=== PATIENT | female | born 1970 | race Caucasian/White ===

== ENCOUNTER → 2020-01-06 14:03 | Outpatient (BNVA) | payer OTHER, SELFPAY | PROVIDERS: PCP Internal Medicine; Visit Provider Internal Medicine Cardiovascular Disease | DX: R07.9 Chest pain, unspecified (principal) | CPT/HCPCS: 93005; 99202 ==

== ENCOUNTER → 2020-02-05 13:43 | Outpatient (BNVA) | payer OTHER, SELFPAY | PROVIDERS: PCP Internal Medicine; Visit Provider Physician Assistant | DX: Z76.89 Persons encountering health services in other specified circumstances (principal) ==

== ENCOUNTER 2020-02-25 14:10 | Outpatient (REF) | payer OTHER, SELFPAY ==
[2020-02-25 15:02] LABS: MANUAL DIFF FLAG NO
[2020-02-25 15:04] LABS: Basophils Absolute Auto 0.1 X10*3/uL (0.0-0.2); Basophils Percent Auto 1.1 % (0-2); Eosinophils Absolute Auto 0.4 X10*3/uL (0.0-0.4); Eosinophils Percent Auto 5.3 % (0-4); Hematocrit 37.2 % (37-47); Hemoglobin 11.1 g/dl (12.0-16.0); Imm Gran Abs Auto 0.01 X10*3/uL (0.00-0.03); Imm Gran Pct Auto 0.1 % (0.0-0.4); Lymphocytes Absolute Auto 2.4 X10*3/uL (1.2-4.9); Mean Corpuscular HGB Conc 29.8 g/dl (31.0-35.0); Mean Corpuscular Hemoglobin 24.2 pg (27.0-33.0); Mean Platelet Volume 9.7 fL (9.4-12.3); Monocytes Absolute Auto 0.7 X10*3/uL (0.1-1.2); Monocytes Percent Auto 10.1 % (2-11); Neutrophils Absolute Auto 3.7 X10*3/uL (2.0-8.3); Neutrophils Percent Auto 50.4 % (45-73); Platelet Count 390 X10*3/uL (160-400); Red Blood Count 4.59 X10*6/uL (4.20-5.50); Red Cell Distribution Width 16.8 % (11.0-16.0); White Blood Count 7.3 X10*3/uL (4.8-10.8)
[2020-02-25 15:36] LABS: Alanine Aminotransferase 14 U/L (0-31); Albumin Level 3.8 g/dL (3.5-5.0); Alkaline Phosphatase 89 U/L (39-117); Anion Gap 9 (12-20); Aspartate Amino Transferase 19 U/L (5-31); Bilirubin Total 0.2 mg/dL (0.0-1.0); Blood Urea Nitrogen 10 mg/dL (9-16); Calcium 9.3 mg/dL (8.4-10.2); Carbon Dioxide 30 mmol/L (22-29); Chloride 105 mmol/L (96-108); Estimated Glomerular Filt Rate > 60; Glucose Random 113 mg/dL (60-115); Potassium 4.4 mmol/l (3.3-5.1); Sodium 140 mmol/L (135-145); Total Protein 7.5 g/dL (6.5-8.0)
[2020-02-25 15:53] LABS: Ferritin 2 ng/mL (10-250)
== END 2020-02-25 14:11 | disposition home or self-care (01) ==
LOC: HO.LAB 14:10
PROVIDERS: PCP Internal Medicine; Visit Provider Physician Assistant
DX: A04.8 Other specified bacterial intestinal infections (principal); K21.9 Gastro-esophageal reflux disease without esophagitis; D64.9 Anemia, unspecified; R10.11 Right upper quadrant pain; M77.8 Other enthesopathies, not elsewhere classified
CPT/HCPCS: 36415; 80053; 82728; 85025; 87338

== ENCOUNTER 2020-02-26 12:44 | Outpatient (REF) | payer OTHER, SELFPAY ==
[2020-02-26 16:01] LABS: Folate 4.5 ng/mL (> or = 4.0); Vitamin B12 676 pg/mL (200-900)
[2020-02-27 15:48] LABS: Transglutaminase IgA 1 U/mL
[2020-03-04 11:57] LABS: Endomysial IgA Antibody Negative (Negative)
== END 2020-02-26 12:45 | disposition home or self-care (01) ==
LOC: HO.LAB 12:44
PROVIDERS: PCP Internal Medicine; Visit Provider Physician Assistant
DX: R10.9 Unspecified abdominal pain (principal); N92.4 Excessive bleeding in the premenopausal period; D64.9 Anemia, unspecified; R19.7 Diarrhea, unspecified; Z79.899 Other long term (current) drug therapy
CPT/HCPCS: 36415; 82607; 82746; 83516; 86255; 86256; 99212

== ENCOUNTER 2020-02-26 21:47 | Emergency (ER) | payer OTHER, SELFPAY ==
[2020-02-26 21:52] VITALS: BP 127/77; PULSE 84; RESP 18; TEMP 36.9; O2SAT 97; BMI 32.5
--- NOTE | 2020-02-26 22:23 | XR_ITS ---
EXAMINATION: XR SHOULDER, RIGHT CLINICAL INFORMATION: Right shoulder pain COMPARISON: Right shoulder 01/12/2010 TECHNIQUE: Four views of the right shoulder. FINDINGS: Globular calcification over the greater tuberosity soft tissue of the left shoulder with calcific tendinosis/bursitis. Calcification measures approximately 1 x 2 x 1 cm in size. Minor spurring of the humeral head at the inferior glenohumeral joint. The acromioclavicular joint is normal. XR/XR shoulder RT min 2V IMPRESSION: Large soft tissue calcification adjacent to the humeral head due to calcific tendinosis/bursitis.
--- NOTE | 2020-02-26 22:24 | ED_ITS ---
HPI - Extremity Problem General Chief complaint: Extremity Injury, Upper Stated complaint: shoulder pain Time Seen by Provider: 02/26/20 22:14 Source: patient Mode of arrival: ambulatory Limitations: no limitations History of Present Illness HPI Narrative: Patient comes emergency room complaining of right shoulder pain. Patient states she has a husky, was going to walk the dog, the dog was very excited to go out for a walk, the leash was wrapped around the patient's right hand, the dog pulled her backwards. Patient did not fall, however she felt something popping in her shoulder. Patient has been able to move her arm, however the shoulder hurts. No numbness or tingling, no swelling MD Complaint: extremity pain Related Data Home Medications Medication Instructions Recorded Confirmed alprazolam 1 mg tablet 1 mg PO DAILY PRN 11/19/19 02/26/20 omeprazole 20 mg capsule,delayed 20 mg PO DAILY 11/19/19 01/15/20 release cholecalciferol (vitamin D3) 25 25 mcg PO DAILY 01/06/20 02/26/20 mcg (1,000 unit) capsule sumatriptan succinate 100 mg tablet 100 mg PO Q2-4H PRN 01/06/20 02/26/20 Previous Rx's Medication Instructions Recorded famotidine 20 mg tablet 20 mg PO DAILY #30 tab 01/15/20 acetaminophen [Tylenol] 325 mg PO Q8-12H PRN #10 tab 02/26/20 Allergies Allergy/AdvReac Type Severity Reaction Status Date / Time buprenorphine [From SUBOXONE] Allergy Unknown UNKNOWN Verified 02/26/20 21:51 gabapentin [GABAPENTIN] Allergy Unknown VISION AND Verified 02/26/20 21:51 BALANCE AFFECTED naloxone [From SUBOXONE] Allergy Unknown UNKNOWN Verified 02/26/20 21:51 Butrans Allergy Unknown site Uncoded 02/26/20 21:51 redness/swelling Review of Systems Review of Systems: Constitutional : No Weight loss, No Fever, No Chills, No Night Sweats, No Fatigue, No Malaise ENT/Mouth : No Hearing loss, No Ear Pain, No Nasal Congestion, No Sinus Pain, No Hoarseness, No sore throat, No Rhinorrhea, No Swallowing Difficulty Eyes: No Eye Pain, No Swelling, No Redness, No Foreign Body, No Discharge, No Vision Changes Cardiovascular : No Chest Pain, No SOB, No Dyspnea on Exertion, No Orthopnea, No Edema, No Palpitations Respiratory : No Cough, No Sputum, No Wheezing, No Smoke Exposure, No Dyspnea Gastrointestinal : No Nausea, No Vomiting, No Diarrhea, No Constipation, No abdominal Pain, No Hematochezia, No Melena Genitourinary : no irregular bleeding, No Dysuria, No Urinary Frequency, No Hematuria, No Urinary Incontinence, No Urgency, No Flank Pain, No Urinary Flow Changes, No Hesitancy Musculoskeletal : Right shoulder pain, No Myalgias, No Joint Swelling Skin : No Skin Lesions, No rash Neuro : No Weakness, No Numbness, No Paresthesias, No Loss of Consciousness, No Dizziness, No Headache Psych : No Anxiety/Panic, No Depression, No SI/HI/AH/VH, No Social Issues, Heme/Lymph: No Bruising, No Bleeding,No Lymphadenopathy Endocrine : No Polyuria, No Polydipsia, No Temperature Intolerance [facility] Past Medical History Medical History Acid reflux Anxiety Chest pain Overdose Premenopausal menorrhagia Surgical History History of hernia surgery Hx of colonoscopy Family History Family History (Updated 01/15/20 @ 12:25 by Savannah Her PA-C) Mother HTN (hypertension) Anxiety Depression Sister Colon polyps Brother Colon polyps Social History Social History (Updated 02/26/20 @ 13:19 by Juli Powell Krystle) Alcohol intake: never Smoking Status: Former smoker Advance Directives: No Advance Directives Information Provided: No Current occupational status: unemployed Physical Exam Vital Signs: Vital Signs: Last Vital Signs Temp 98.4 F 02/26/20 21:52 Pulse 84 02/26/20 21:52 Resp 18 02/26/20 21:52 BP 127/77 02/26/20 21:52 Pulse Ox 97 02/26/20 21:52 Body Mass Index 32.5 Appearance: Alert. Oriented X3. No acute distress. Eyes: Pupils equal, round and reactive to light. ENT: Pharynx normal. Neck: Normal inspection. Neck supple. No lymph nodes noted. No crepitus CVS: Normal heart rate and rhythm. Pulses normal. Normal S1 and S2 Respiratory: No respiratory distress. Breath sounds normal. No Wheezing. No rales Abdomen: Soft and nontender. No rigidity. No distention. good BS x4 Skin: Skin warm and dry. Normal skin color. Normal skin turgor. Extremities: No lower extremity edema. Patient is able to abduct the right arm completely and hold it up. Patient is unable to reach her back due to the pain, positive empty can test Neuro: Oriented X 3. No motor deficit. No sensory deficit. Moving all extermities. No slurred speech. Course Course Course Narrative: I discussed with the patient that she likely has bursitis versus tendinitis versus tendon tear. Patient states that she has not taking any [id number]-evl-[id number] medication. States that she has history of overdose and she has been told not to take anything over the counter until it is monitored by her primary care physician. I discussed with the patient that I will give her a small prescription for ibuprofen, using minimal dose. MDM - Extremity (Nontraumatic) Imaging Data Shoulder x-ray: Radiologist's impression: FINDINGS: Globular calcification over the greater tuberosity soft tissue of the left shoulder with calcific tendinosis/bursitis. Calcification measures approximately 1 x 2 x 1 cm in size. Minor spurring of the humeral head at the inferior glenohumeral joint. The acromioclavicular joint is normal. XR/XR shoulder RT min 2V IMPRESSION: Large soft tissue calcification adjacent to the humeral head due to calcific tendinosis/bursitis. Discharge Plan Discharge Clinical Impression: Shoulder pain Qualifiers: Chronicity: unspecified Laterality: unspecified laterality Qualified Code(s): M25.519 - Pain in unspecified shoulder Patient Disposition: Home, Self-Care Instructions: Shoulder Pain (ED) Additional Instructions: Please follow-up with your primary care physician, as you may need an MRI and po ssibly physical therapy. Please follow-up with your primary care physician tomorrow. If you have any worsening or new symptoms, please return to the emergency room or call 911 Prescriptions: New acetaminophen [Tylenol] 325 mg tablet 325 mg PO Q8-12H PRN (Reason: pain) Qty: 10 RF: 0 No Action omeprazole 20 mg capsule,delayed release(DR/EC) 20 mg PO DAILY RF: 0 alprazolam 1 mg tablet 1 mg PO DAILY PRNRF: 0 famotidine 20 mg tablet 20 mg PO DAILY Qty: 30 RF: 3 cholecalciferol (vitamin D3) 25 mcg (1,000 unit) capsule 25 mcg PO DAILY RF: 0 sumatriptan succinate 100 mg tablet 100 mg PO Q2-4H PRNRF: 0
[2020-02-26] MEDS: Ketorolac Tromethamine 60 MG/2 ML VIAL IM (22:44)
== END 2020-02-26 23:53 | disposition home or self-care (01) ==
PROVIDERS: Emergency Provider Emergency Medicine
DX: M25.511 Pain in right shoulder (principal); Z79.899 Other long term (current) drug therapy; Z87.891 Personal history of nicotine dependence
CPT/HCPCS: 73030; 96372; 99284; J1885

== ENCOUNTER 2020-03-01 15:59 | Emergency (ER) | payer OTHER, SELFPAY ==
[2020-03-01 16:17] VITALS: BP 121/69; PULSE 110; RESP 16; TEMP 36.6; O2SAT 97; BMI 33.3
--- NOTE | 2020-03-01 17:16 | ED.EXTPRO ---
HPI - Extremity Problem General Chief complaint: Extremity Injury, Upper Stated complaint: sholder pain Time Seen by Provider: 03/01/20 17:51 Source: patient Mode of arrival: ambulatory Limitations: language barrier History of Present Illness HPI Narrative: 49-year-old female presents with right shoulder pain. She was seen here on 02/26/2020 for this injury. She was walking her dog, the dog ran and pulled her arm backwards her hand was stuck in the leash and pulled on her shoulder. She felt a popping sound and had 10/10 pain after the incident. Her x-ray on the was negative for fracture or acute findings but it is suspected that she has a rotator cuff or ligament injury. She states the medications that were given to her are ineffective, and her primary care physician would not order an outpatient MRI because PCP wanted her to go to physical therapy 1st. Patient is currently in a sling, appears uncomfortable and is asking for pain management. She does have range of motion but is limited, she is able to move all of her fingers without difficulty. She does not describe any other symptoms at this time. MD Complaint: extremity pain Onset (ago): week(s) (1) Pain Consistency: constant Location: right Severity scale (1-10): 10 Quality: aching Relieving factors: nothing Exacerbating factors: range of motion Associated symptoms: denies other symptoms Related Data Home Medications Medication Instructions Recorded Confirmed alprazolam 1 mg tablet 1 mg PO DAILY PRN 11/19/19 02/26/20 omeprazole 20 mg capsule,delayed 20 mg PO DAILY 11/19/19 01/15/20 release cholecalciferol (vitamin D3) 25 25 mcg PO DAILY 01/06/20 02/26/20 mcg (1,000 unit) capsule sumatriptan succinate 100 mg tablet 100 mg PO Q2-4H PRN 01/06/20 02/26/20 Previous Rx's Medication Instructions Recorded famotidine 20 mg tablet 20 mg PO DAILY #30 tab 01/15/20 acetaminophen [Tylenol] 325 mg PO Q8-12H PRN #10 tab 02/26/20 ibuprofen 600 mg tablet 600 mg PO Q8H PRN #30 tab 02/28/20 tramadol 50 mg PO Q6H PRN #20 tab 03/01/20 Allergies Allergy/AdvReac Type Severity Reaction Status Date / Time buprenorphine [From SUBOXONE] Allergy Unknown UNKNOWN Verified 02/26/20 21:51 gabapentin [GABAPENTIN] Allergy Unknown VISION AND Verified 02/26/20 21:51 BALANCE AFFECTED naloxone [From SUBOXONE] Allergy Unknown UNKNOWN Verified 02/26/20 21:51 Butrans Allergy Unknown site Uncoded 02/26/20 21:51 redness/swelling Review of Systems Review of Systems: Constitutional: No Fever, No Chills ENT/Mouth: No Ear Pain, No Hoarseness, No sore throat Eyes: No Eye Pain, No Swelling, No Redness, No Foreign Body Cardiovascular: No Chest Pain, No SOB Respiratory: No Cough, No Dyspnea Gastrointestinal: No Nausea, No Vomiting, No Diarrhea, No abdominal Pain Genitourinary: No Dysuria, No Hematuria Musculoskeletal: positive right shoulder pain, No Myalgias, No Joint Swelling Skin: No Skin lacerations, No rash Neuro: No Weakness, No Numbness, No Paresthesias, No Loss of Consciousness, No Dizziness, No Headache Psych: No Anxiety/Panic, No Depression Heme/Lymph: no easy bruising, no Lymphadenopathy Endocrine: No Polyuria, No Polydipsia Yes all other systems are reviewed and are negative [facility] Past Medical History Attestation statement: The following information was validated with the patient. Medical History (Updated 03/02/20 @ 00:00 by Jodi Mayorga) Acid reflux Anxiety Chest pain Overdose Premenopausal menorrhagia Shoulder tendinitis Surgical History History of hernia surgery Hx of colonoscopy Family History Family History Mother HTN (hypertension) Anxiety Depression Sister Colon polyps Brother Colon polyps Social History Social History Alcohol intake: never Smoking Status: Never smoker Smoked in Last 30 Days: No Use of substances other than those prescribed or required for medical reasons: No Advance Directives: No Advance Directives Information Provided: No Current occupational status: unemployed Physical Exam Vital Signs: Vital Signs: Last Vital Signs Temp 97.8 F 03/01/20 16:17 Pulse 110 H 03/01/20 16:17 Resp 16 03/01/20 16:17 BP 121/69 03/01/20 16:17 Pulse Ox 97 03/01/20 16:17 Body Mass Index 33.3 Appearance: Alert. Oriented X3. No acute distress. Eyes: Pupils equal, round and reactive to light. ENT: Pharynx normal. Neck: Normal inspection. Neck supple. CVS: Normal heart rate and rhythm. Pulses normal. Respiratory: No respiratory distress. Breath sounds normal. Abdomen: Soft and nontender. Skin: Skin warm and dry. Normal skin color. Normal skin turgor. Extremities: No lower extremity edema. Decreased range of motion to right upper extremity particularly with abduction and adduction. Full range of motion to the digits, able to pronate and supinate without difficulty. Neuro: No motor deficit. No sensory deficit. Brisk capillary refill to all extremities, pulses equal to all extremities. Course Course Course Narrative: 49-year-old female presents for the 2nd time for right shoulder injury. [place] text with Dr. Frances, Dr. Frances will see this patient in the office this week for suspected rotator cuff injury or labrum injury. We will give tramadol for pain management and Valium for muscle spasms. Patient does understand that these medications are dangerous and highly addictive. Patient does have limited range of motion with abduction and adduction, can supinate and pronate, brisk capillary refill and equal pulses to the extremities. Sensation is intact. Will order a properly fitting sling for the right arm. 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 Google translate utilized for discharge instructions. MDM - Extremity (Nontraumatic) MDM Narrative Medical decision making narrative: Rotator cuff injury, labral tear Medical Records Attestation: I reviewed the patient's medical records. Discharge Plan Discharge Clinical Impression: Tendon injury, Rotator cuff dysfunction Patient Disposition: Home, Self-Care Instructions: Rotator Cuff Injury (ED), Shoulder Sprain (ED), Shoulder Pain (ED) Additional Instructions: Te evaluaron para el dolor en el hombro derecho. Por favor, alba un seguimiento con ortopedia. Llama y pide nico nori ma?ana. Frances espera hernández llamada. Por favor, no use la pomada de jose maria. Los medicamentos de jose maria no est?n dise?ados para uso humano. Utilice tramadol seg?n sea necesario para el manejo del dolor. Dave medicamento es un narc?gin y tiene un alto riesgo de adicci?n y abuso. No conduzca ni utilice maquinaria mientras est? tomando dave medicamento. Dave medicamento puede aumentar el riesgo de ca?panchal, causar somnolencia y disminuci?n del tiempo de reacci?n. Dave medicamento tambi?n es estre?imiento. Farhana muchos l?quidos y use MiraLax y Colace para ayudar a suavizar las heces. Rachel por elegir dave departamento de emergencias para la evaluaci?n. Por favor, alba un seguimiento con el m?dico de atenci?n primaria seg?n sea necesario. Regrese al servicio de urgencias para cualquier s?ntoma nuevo, preocupante o que empeore. You were evaluated for right shoulder pain. Please follow-up with orthopedics. Call and make an appointment tomorrow. Dr. Frances is expecting your call. Please do not use the horse ointment. Horse medications are not designed for human use. Please use tramadol as needed for pain management. This medication is a narcotic and has high risk for addiction and abuse. Do not drive or operate machinery while taking this medication. This medication may increase risk for falls, cause drowsiness, and decreased reaction time. This medication is also constipating. Drink plenty of fluids, and use MiraLax and or Colace to help soften stools. Thank you for choosing this emergency department for evaluation. Please follow-up with primary care physician as needed. Return to the emergency department for any new, concerning, or worsening symptoms. Prescriptions: New tramadol 50 mg tablet 50 mg PO Q6H PRN (Reason: pain) Qty: 20 RF: 0 No Action ibuprofen 600 mg tablet 600 mg PO Q8H PRN (Reason: pain) Qty: 30 RF: 0 acetaminophen [Tylenol] 325 mg tablet 325 mg PO Q8-12H PRN (Reason: pain) Qty: 10 RF: 0 omeprazole 20 mg capsule,delayed release(DR/EC) 20 mg PO DAILY RF: 0 alprazolam 1 mg tablet 1 mg PO DAILY PRNRF: 0 famotidine 20 mg tablet 20 mg PO DAILY Qty: 30 RF: 3 cholecalciferol (vitamin D3) 25 mcg (1,000 unit) capsule 25 mcg PO DAILY RF: 0 sumatriptan succinate 100 mg tablet 100 mg PO Q2-4H PRNRF: 0 Referrals: Lazaro Frances MD [Physician] - 2 days (Suspected rotator cuff or labrum injury to right shoulder) Interventions: ED Discharge Assessment Last Done: 03/01/20 18:34 Discharge Date/Time: 03/01/20 18:35
--- NOTE | 2020-03-01 17:47 | PC.NURSE ---
GAVE PATIENT PROPER ARM SLING. APPLIED TO ARM. PATIENT HAD A SLING ON AND IT WAS TOO SMALL. EDUCATED ON THE PROPER USE OF ARM SLING.
[2020-03-01] MEDS: traMADoL HCL 50 MG TABLET PO (18:29)
== END 2020-03-01 18:35 | disposition home or self-care (01) ==
PROVIDERS: Emergency Provider Emergency Medicine Emergency Medical Services; PCP Internal Medicine
DX: S46.011A Strain of muscle(s) and tendon(s) of the rotator cuff of right shoulder, initial encounter (principal); M25.511 Pain in right shoulder; X58.XXXA Exposure to other specified factors, initial encounter; Y93.9 Activity, unspecified; Y92.9 Unspecified place or not applicable; Y99.9 Unspecified external cause status
CPT/HCPCS: 99283; 99284

== ENCOUNTER 2020-03-11 09:35 | Outpatient (REF) | payer OTHER, SELFPAY ==
--- NOTE | 2020-03-11 09:38 | US_ITS ---
EXAMINATION: US COMPLETE ABDOMEN WITH LIVER ELASTOGRAPHY CLINICAL INFORMATION: Abdominal pain. COMPARISON: None. TECHNIQUE: Real-time imaging of the abdominal viscera. Noninvasive ultrasound liver fibrosis assessment is performed using Diana ElastPQ point quantification shear wave elastography (pSWE) with a 5 MHz transducer. Multiple elastography samples are obtained. FINDINGS: PANCREAS: Normal. The visualized pancreatic head and body are normal in appearance. The remainder of the pancreas is obscured from visualization by the overlying bowel gas. ABDOMINAL AORTA: The proximal, middle, and distal aortic segments are normal in caliber. INFERIOR VENA CAVA: Visualized portions are normal. LIVER: The liver demonstrates normal size, contour and increased echogenicity. No focal lesion or intrahepatic biliary duct dilatation. The right lobe measures 14.9 cm in length. The left lobe measures 10.5 cm in length. There is normal hepatopedal flow seen in portal vein on Doppler exam. Shear wave elastography provides a median stiffness of 1.3 m/s (reference: normal median stiffness is 0.81 - 1.22 m/s). The IQR/median stiffness to assess sampling precision is 0.07 (reference: optimal IQR/median stiffness is under 0.3). GALLBLADDER: Normal. The gallbladder is physiologically distended without evidence of stones, sludge, polyps, wall thickening or pericholecystic fluid. COMMON BILE DUCT: Normal in caliber measuring 0.3 cm in diameter. RIGHT KIDNEY: Normal. No hydronephrosis. No renal calculi or focal parenchymal lesions. The kidney measures 10.3 cm in maximum dimension. LEFT KIDNEY: Normal. No hydronephrosis. No renal calculi or focal parenchymal lesions. The kidney measures 11.0 cm in maximum dimension. SPLEEN: Normal. The spleen measures 8.6 cm in maximum dimension. FREE FLUID: None. US/US abdomen comp w elastography IMPRESSION: Hepatic steatosis without focal lesion. The rest of the abdominal ultrasound is unremarkable. Elastography: Tafcwr-gy-nomr fibrosis, Metavir score F0-F1.
== END 2020-03-11 09:36 | disposition home or self-care (01) ==
LOC: HO.US 09:35
PROVIDERS: PCP Internal Medicine; Visit Provider Physician Assistant
DX: R10.9 Unspecified abdominal pain (principal)
CPT/HCPCS: 76705; 76981

== ENCOUNTER → 2020-03-16 11:13 | Outpatient (BNVA) | payer OTHER, SELFPAY | PROVIDERS: Visit Provider Orthopaedic Surgery | DX: M75.31 Calcific tendinitis of right shoulder (principal) | CPT/HCPCS: 20610; 99212; J1100 ==

== ENCOUNTER 2020-03-25 13:19 | Outpatient (RCR) | payer OTHER, SELFPAY ==
--- NOTE | 2020-03-25 15:33 | MHC.PT.EP ---
[facility] [place] [facility] [place] [facility] [place] [facility] [address] Keisha Mcnally [address] [phone] F: [phone] F: [phone] F: [phone] F: [phone] Physical Therapy Plan of Care Date of Evaluation: 03/25/20 Date of Surgery: NA Diagnosis: CALCIFIC TENDONITIS R SHLDER Assessment: Pt IS 49 YO F REFERRED TO PT FROM DR RICH WITH R SHLDER CALCIFIC TENDONITIS. Pt REPORTS R SHLDER STARTED HURTING AFTER SHE WAS PULLED BY HER DTRS DOG (RITU) WHILE TAKING HIM FOR A WALK (BEGINNING OF FEBRUARY) Pt SEEN IN ER X 2 (4 DAYS APART) BECASUE OF PAIN AND SEEN BY ORTHO WITH INJECTION WITH SOME RELIEF. Pt PRESENTS TO PT WITH SOME LIMITED END RANGE OF MOTION R SHLDER AND LIMITED RC STRENGTH. OF NOTE, Pt REPORTS L SHLDER SURGERY IN PAST (?2011) PER DR ULRICH WITH PT. THIS SHLDER (HER L) SEEMS TO BE MORE LIMITED IN ROM AND STRENGTH THAN R (HOWEVER R IS MORE PAINFUL). Pt SHOULD BENEFIT FROM PT TO ADDRESS ROM/STRENGTH DEFICITS OF BOTH SHLDER AND PAIN R SHLDER Frequency and Duration: The patient will be seen 2X/WK X 6 WKS Short Term Goals: 1. INCREAESED POSTURE AWARENESS AND AWARENESS SHLDER CARE (INCREASED AWARENESS OF HOW TO AVOID [place] COMPENSATION) 2. 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 INCREASED SHLDER ROM 5-10 DEGREES T/O B (IF INDICATED BY AUTH OF ORTHO FOR RX B SHLDERS/NOT JUST R) 2. INCREASED RC STRENGTH 1/2 MM GRADE T/O B (IF INDICATED BY AUTH FROM ORTHO FOR RX B SHLDERS) 3.DECREASED PAIN R SHLDER AT LEAST 50% WITH ADLS Treatment Plan: Modalities to reduce pain, spasms and effusion. Manual therapy to restore motion and function. Therapeutic exercise to improve strength and flexibility. Neuromuscular re-education for posture and balance. Therapeutic activities to return to functional activities of daily living. Electronically signed by: JACKSON GARCIA PT Please sign and return to therapist. Thank you for your referral.
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
== END 2020-04-29 08:55 | disposition other institution (70) ==
LOC: HO.PTWFD 13:19
PROVIDERS: PCP Internal Medicine; Visit Provider Orthopaedic Surgery
DX: M75.31 Calcific tendinitis of right shoulder (principal)
CPT/HCPCS: 97110; 97162

== ENCOUNTER → 2020-03-30 10:05 | Outpatient (BNVA) | payer OTHER, SELFPAY | PROVIDERS: PCP Internal Medicine; Visit Provider Physician Assistant ==

== ENCOUNTER 2020-04-15 15:04 | Emergency (ER) | payer OTHER, SELFPAY ==
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
[2020-04-15 15:26] VITALS: BP 120/78; PULSE 73; RESP 18; TEMP 36.7; O2SAT 100; BMI 33.3
[2020-04-15 15:49] VITALS: BP 114/69; PULSE 69; RESP 20; TEMP 36.9; O2SAT 99
[2020-04-15 18:00] VITALS: BP 120/70; PULSE 71; RESP 20; TEMP 37.2; O2SAT 99
== END 2020-04-15 18:52 | disposition home or self-care (01) ==
PROVIDERS: Emergency Provider Emergency Medicine Emergency Medical Services; PCP Internal Medicine
DX: S80.11XA Contusion of right lower leg, initial encounter (principal); M79.604 Pain in right leg; G44.309 Post-traumatic headache, unspecified, not intractable; M54.2 Cervicalgia; V43.62XA Car passenger injured in collision with other type car in traffic accident, initial encounter; Y93.9 Activity, unspecified; Y92.410 Unspecified street and highway as the place of occurrence of the external cause; Y99.9 Unspecified external cause status; Z79.899 Other long term (current) drug therapy
CPT/HCPCS: 70450; 72125; 73590; 99284

== ENCOUNTER → 2020-05-06 12:52 | Outpatient (BNVA) | payer OTHER, SELFPAY | PROVIDERS: PCP Internal Medicine; Visit Provider Internal Medicine Cardiovascular Disease | DX: R07.9 Chest pain, unspecified (principal); K21.9 Gastro-esophageal reflux disease without esophagitis | CPT/HCPCS: 99212 ==

== ENCOUNTER 2020-06-08 10:40 | Day surgery (SDC) | payer OTHER, SELFPAY ==
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
[2020-06-08 11:11] VITALS: BMI 73.3
[2020-06-08 11:19] VITALS: BP 121/69; PULSE 76; RESP 16; TEMP 36.9; O2SAT 95
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
[2020-06-08] MEDS: Lactated Ringers 1,000 ML 100 ML IVCONT (11:39)
--- NOTE | 2020-06-08 12:10 | P.OP_ITS ---
Operative Note Operative Note Date of Service: 06/08/20 Narrative: Operative Information Procedure Description: EGD, Colonoscopy FLEXIBLE TRANSORAL UPPER GASTROINTESTINAL ENDOSCOPY AND COLONOSCOPY PROCEDURE NOTE UPPER ENDOSCOPY Consent: Indications for the procedure and potential complications of bleeding, perforation, reaction to medications and missed diagnosis were discussed with the patient and informed consent was obtained. Instrument: Olympus GIF H 190 J mid size upper endoscope Monitoring: Vital signs and clinical assessment, continuous EKG monitoring, Pulse oximetry, Carbon Dioxide monitoring and blood pressure monitoring were done throughout the procedure. Procedure: The patient was placed in the left lateral decubitis position and pre-procedure medications were administered and a bite block was placed. The endoscope was inserted into the mouth and advanced under direct vision to the third part of duodenum. A careful inspection was made as the upper endoscope was withdrawn including a retroflexed examination of the proximal stomach; Findings and interventions are described below. Findings: Larynx:normal Esophagus: GE junction at 35 cm, diaphragm hiatus at 35 cm, normal mucosa --bx taken Stomach: erosive gastritis in the proximal stomach body. Biopsies were obtained. Grade 2 flap valve on retroflexed examination of the cardia. Few fundic gland polyps noted Duodenum: Normal bulb and descending duodenum, bx taken Intervention: Biopsies as noted above COLONOSCOPY Instrument: Olympus variable stiffness pediatric scope 190L Colonoscopy Monitoring: Vital signs and clinical assessment, continuous EKG monitoring, Pulse oximetry, Carbon Dioxide monitoring and blood pressure monitoring were done throughout the procedure. Colon withdrawal time was 8 minutes. Procedure: The patient was placed in the left lateral decubitis position and pre-procedure medications were administered. After a digital rectal examination of the ano-rectum, the video colonoscope was inserted into the rectum and advanced through the colon to the cecum The colonoscope was slowly withdrawn in a retrograde panoramic fashion and the colon mucosa was carefully examined including a retroflexed view of the rectum. Findings and interventions are described below. Procedure Difficulty: Findings: Terminal Ileum-not seen due to prep Cecum:poorly seen due to thick debris blcoking view Ascending Colon: normal Transverse Colon -5-6 mm sessile polyp removed with forceps Descending Colon:normal Sigmoid Colon: normal Rectum: Retroflexion with small internal hemorrhoids, grade II Anorectum - normal Colon preparation: Armstrong Bowel Preparation Scale Right colon; 1 Transverse colon: 2 Left colon; 1 (0 = Unprepared colon segment with mucosa not seen due to solid stool that cannot be cleared. 1 = Portion of mucosa of the colon segment seen, but other areas of the colon segment not well seen due to staining, residual stool and/or opaque liquid. 2 = Minor amount of residual staining, small fragments of stool and/or opaque liquid, but mucosa of colon segment seen well. 3 = Entire mucosa of colon segment seen well with no residual staining, small fragments of stool or opaque liquid) Impression and Post Procedure Diagnosis: Endoscopy Findings: erosive gastritis Colonoscopy Findings: internal hemorrhoids polyp Plan: Await Pathology results Repeat Colonoscopy in 6 months or earlier if clinically indicated--pt ate full meal yesterday, next time needs to stick to instructions and stay on clears High fiber diet leaflet avoid straining at stool, epsom salts and sitz bath, anusol supps or cream check PPI compliance, if H pylori pos then treat Above findings were reviewed with the patient and relevant handouts were provided if indicated.
--- NOTE | 2020-06-08 12:10 | P.BOP_ITS ---
Brief Operative Note Date of Service: 06/08/20 Pre-op diagnosis: GERD, FH of colon polyps Post-op diagnosis: same Procedure: see op note Surgeon: Geoff Singh MD Anesthesia: MAC Was an Stoneworking Belt Sander used for this Procedure?: No Estimated blood loss (mL): 0 Condition: stable Disposition: PACU
[2020-06-08 12:30] VITALS: BP 91/61; PULSE 75; RESP 16; TEMP 37.1; O2SAT 95
[2020-06-08 12:45] VITALS: BP 121/74; PULSE 62; RESP 16; TEMP 37.1; O2SAT 98
== END 2020-06-08 13:15 | disposition home or self-care (01) ==
PROVIDERS: PCP Internal Medicine; Visit Provider Internal Medicine Gastroenterology
PROC: (CPT 45380; principal; 2020-06-08 11:50)
DX: Z12.11 Encounter for screening for malignant neoplasm of colon (principal); Z83.71 Family history of colonic polyps; K63.5 Polyp of colon; K64.1 Second degree hemorrhoids; K21.9 Gastro-esophageal reflux disease without esophagitis; K29.50 Unspecified chronic gastritis without bleeding; K20.80 Other esophagitis without bleeding; K31.7 Polyp of stomach and duodenum; K44.9 Diaphragmatic hernia without obstruction or gangrene; K76.0 Fatty (change of) liver, not elsewhere classified; F32.9 Major depressive disorder, single episode, unspecified; Z79.899 Other long term (current) drug therapy
CPT/HCPCS: 45380; 43239; 88305; 88342

== ENCOUNTER → 2020-07-07 09:08 | Outpatient (BNVA) | payer OTHER, SELFPAY | PROVIDERS: PCP Internal Medicine; Visit Provider Physician Assistant ==

== ENCOUNTER 2020-08-22 19:36 | Emergency (ER) | payer OTHER, SELFPAY ==
--- NOTE | ~2020-08-22 | XR_ITS ---
EXAMINATION: XR CHEST CLINICAL INFORMATION: Dyspnea. COMPARISON: Most recent chest radiograph dated 06/17/2015. TECHNIQUE: 2 views of the chest were obtained. FINDINGS: The lungs are clear. The cardiomediastinal silhouette is normal in size. There is no pleural effusion or pneumothorax. No acute osseous abnormality. XR/XR chest 2V IMPRESSION: No acute cardiopulmonary findings.
[2020-08-22 20:20] VITALS: BP 136/75; PULSE 75; RESP 18; TEMP 37.1; O2SAT 97; BMI 33.3
[2020-08-22 21:20] LABS: COVID-19 Test Negative (Negative)
[2020-08-22] MEDS: Albuterol Sulfate (0.083%) 2.5 MG/3 ML VIAL.NEB INHALE (21:26)
[2020-08-22 21:28] VITALS: PULSE 75; O2SAT 97
--- NOTE | 2020-08-22 21:34 | ED.SOB ---
HPI - SOB/Dyspnea General Chief Complaint: Dyspnea Stated Complaint: Asthma Time Seen by Provider: 08/22/20 21:34 Source: patient and supervisor bindery Mode of arrival: ambulatory History of Present Illness HPI Narrative: 50-year-old female with significant past medical history of asthma, poorly compliant with medication and follow-up with her primary care provider and presents with 2 weeks of worsening shortness of breath without orthopnea or bilateral lower extremity edema and denies any fever, chills, chest pain/palpitations. However, patient states that she is start to have a cough with productive yellow phlegm. Related Data Home Medications Medication Instructions Recorded Confirmed alprazolam 1 mg tablet 1 mg PO DAILY PRN 11/19/19 07/07/20 cholecalciferol (vitamin D3) 25 25 mcg PO DAILY 01/06/20 07/07/20 mcg (1,000 unit) capsule Previous Rx's Medication Instructions Recorded acetaminophen [Tylenol] 325 mg PO Q8-12H PRN #10 tab 02/26/20 ibuprofen 600 mg tablet 600 mg PO Q8H PRN #30 tab 02/28/20 tramadol 50 mg PO Q6H PRN #20 tab 03/01/20 meclizine 12.5 mg PO TID PRN #10 tab 04/15/20 meclizine 25 mg tablet 25 mg PO TID #30 tab 05/06/20 sumatriptan succinate 100 mg tablet 100 mg PO Q2-4H PRN #30 tab 05/06/20 bisacodyl 5 mg tablet,delayed 10 mg PO ONCE 1 Days #2 tab 07/07/20 release polyethylene glycol 3350 17 238 g PO ONCE 1 Days #238 g 07/07/20 gram/dose oral powder Allergies Allergy/AdvReac Type Severity Reaction Status Date / Time buprenorphine [From SUBOXONE] Allergy Unknown UNKNOWN Verified 08/22/20 20:19 gabapentin [GABAPENTIN] Allergy Unknown VISION AND Verified 08/22/20 20:19 BALANCE AFFECTED naloxone [From SUBOXONE] Allergy Unknown UNKNOWN Verified 08/22/20 20:19 Butrans Allergy Unknown site Uncoded 07/07/20 09:11 redness/swelling Review of Systems Review of Systems: Pertinent positives and negatives as stated in HPI 10 point review of systems otherwise negative. PMFSH Past Medical History Source: nursing notes reviewed Medical History Acid reflux Anxiety Arthritis Calcific tendonitis of right shoulder region Chest pain Depression Family history of colonic polyps History of cocaine abuse Hx of concussion NAFLD (nonalcoholic fatty liver disease) Overdose Premenopausal menorrhagia Shoulder tendinitis Surgical History History of shoulder surgery History of tubal ligation History of umbilical hernia repair Hx of colonoscopy Family History Family History Mother HTN (hypertension) Anxiety Depression Sister Colon polyps Brother Colon polyps Social History Social History Household Members: Children Alcohol intake: never Advance Directives: No Advance Directives Information Provided: No Current occupational status: unemployed Physical Exam Vital Signs: Vital Signs: Last Vital Signs Temp 98.8 F 08/22/20 20:20 Pulse 75 08/22/20 21:28 Resp 18 08/22/20 20:20 BP 136/75 08/22/20 20:20 Pulse Ox 97 08/22/20 20:20 Body Mass Index 33.3 VITAL SIGNS: Reviewed. GENERAL: Well developed, well nourished, in no acute distress. HEAD: Normocephalic/atraumatic EYES: PERRLA, EOMI OROPHARYNX: no oral lesions noted, posterior pharynx clear LUNGS: Good respiratory effort, no tachypnea, minimal expiratory wheeze noted with some scattered rhonchi. SpO2<97> CARDIOVASCULAR: Regular rate and rhythm without noted murmurs, no JVD or lower extremity edema. ABDOMEN: Soft, non-tender, non-distended with bowel sounds. SKIN: Inspection of the skin reveals no rashes NEUROLOGIC: Alert and oriented x 4. Strength and sensation to light touch were grossly intact x 4. Course Course Course Narrative: 50-year-old female with history and clinical presentation consistent with mild asthma and likely bronchitis. Review of all investigations negative for acute findings and on re-evaluation patient is feeling mildly better with improved control over her cough. MDM - SOB/Dyspnea Lab Data Labs: Lab Results 08/22/20 Range/Units 20:56 COVID-19 (PO) Negative (Negative) COVID-19 Clin Com See Note Discharge Plan Discharge Clinical Impression: Asthma with bronchitis Patient Disposition: Home, Self-Care Instructions: Asthma (ED), Albuterol (By breathing) Additional Instructions: 1. Reanude todos los medicamentos caseros seg?n lo prescrito. 2. Zane un seguimiento con hernández proveedor de atenci?n primaria en los pr?ximos 2 a 3 d?as para nico reevaluaci?n y un tratamiento ambulatorio adicional. 3. Carla las pr?ximas 24 horas, utilice hernández inhalador de rescate cada 4 a 6 horas para un control continuo de hernández asma. Regrese a la mino de emergencias por un empeoramiento sarah de los s?ntomas. Prescriptions: No Action ibuprofen 600 mg tablet 600 mg PO Q8H PRN (Reason: pain) Qty: 30 RF: 0 meclizine 25 mg tablet 25 mg PO TID Qty: 30 RF: 0 sumatriptan succinate 100 mg tablet 100 mg PO Q2-4H PRN (Reason: migraine headache) Qty: 30 RF: 0 acetaminophen [Tylenol] 325 mg tablet 325 mg PO Q8-12H PRN (Reason: pain) Qty: 10 RF: 0 tramadol 50 mg tablet 50 mg PO Q6H PRN (Reason: pain) Qty: 20 RF: 0 meclizine 12.5 mg tablet 12.5 mg PO TID PRN (Reason: dizziness) Qty: 10 RF: 0 alprazolam 1 mg tablet 1 mg PO DAILY PRN (Reason: Anxiety) RF: 0 cholecalciferol (vitamin D3) 25 mcg (1,000 unit) capsule 25 mcg PO DAILY RF: 0 bisacodyl [Dulcolax (bisacodyl)] 5 mg tablet,delayed release (DR/EC) 10 mg PO ONCE 1 Days Qty: 2 RF: 0 polyethylene glycol 3350 [Miralax] 17 gram/dose powder 238 g PO ONCE 1 Days Qty: 238 RF: 0 Referrals: Yanet Dobbs MD [Primary Care Provider] - 2 days (Re-evaluation for asthma with bronchitis.) Print Language: Paraguayan
[2020-08-22] MEDS: Albuterol Sulfate 90 MCG 8 GM INHALER 2 PUFF INHALE (22:56)
== END 2020-08-22 23:18 | disposition home or self-care (01) ==
PROVIDERS: Emergency Provider Student in an Organized Health Care Education/Training Program; PCP Internal Medicine
DX: J45.909 Unspecified asthma, uncomplicated (principal); Z79.899 Other long term (current) drug therapy; Z91.14 Patient's other noncompliance with medication regimen; Z20.822 Contact with and (suspected) exposure to COVID-19
CPT/HCPCS: 36415; 71046; 87635; 94640; 99283; 99284

== ENCOUNTER 2020-09-03 09:26 | Outpatient (REF) | payer OTHER, SELFPAY ==
[2020-09-03 11:50] LABS: Hematocrit 40.2 % (37-47); Mean Corpuscular HGB Conc 29.9 g/dl (31.0-35.0); Mean Corpuscular Hemoglobin 24.3 pg (27.0-33.0); Mean Corpuscular Volume 81.5 fL (80-98); Mean Platelet Volume 10.6 fL (9.4-12.3); Platelet Count 337 X10*3/uL (160-400); Red Blood Count 4.93 X10*6/uL (4.20-5.50); Red Cell Distribution Width 17.6 % (11.0-16.0); White Blood Count 7.4 X10*3/uL (4.8-10.8)
[2020-09-03 11:56] LABS: Alanine Aminotransferase 12 U/L (0-31); Albumin Level 3.8 g/dL (3.5-5.0); Alkaline Phosphatase 98 U/L (39-117); Anion Gap 10 (12-20); Aspartate Amino Transferase 18 U/L (5-31); Bilirubin Total 0.4 mg/dL (0.0-1.0); Blood Urea Nitrogen 12 mg/dL (9-16); Calcium 9.6 mg/dL (8.4-10.2); Carbon Dioxide 26 mmol/L (22-29); Chloride 107 mmol/L (96-108); Cholesterol 173 mg/dL; Estimated Glomerular Filt Rate > 60; Glucose Fasting 112 mg/dL (60-99); HDL Cholesterol 47 mg/dL; LDL Cholesterol Calculated 110 mg/dl; Potassium 4.3 mmol/L (3.3-5.1); Sodium 139 mmol/L (135-145); Total Protein 7.8 g/dL (6.5-8.0); Triglycerides 82 mg/dL
[2020-09-03 12:18] LABS: TSH reflex Free T4 2.21 uIU/mL (0.32-4.0)
== END 2020-09-03 09:27 | disposition home or self-care (01) ==
LOC: HO.HMGCLDS 09:26
PROVIDERS: PCP Internal Medicine; Visit Provider Internal Medicine
DX: Z00.00 Encounter for general adult medical examination without abnormal findings (principal)
CPT/HCPCS: 36415; 80053; 80061; 84443; 85027

== ENCOUNTER → 2020-09-08 14:32 | Outpatient (BNVA) | payer OTHER, SELFPAY | PROVIDERS: PCP Internal Medicine; Visit Provider Obstetrics & Gynecology ==

== ENCOUNTER 2020-09-27 16:54 | Emergency (ER) | payer OTHER, SELFPAY ==
--- NOTE | ~2020-09-27 | XR_ITS ---
EXAMINATION: XR LUMBOSACRAL SPINE CLINICAL INFORMATION: Low back pain with midline tenderness COMPARISON: 01/05/2013 TECHNIQUE: Three views of the lumbosacral spine. FINDINGS: The vertebral bodies and posterior elements are normal. The disc spaces are preserved and the vertebral alignment is normal. The paraspinal soft tissues are normal. XR/XR lumbar spine 2-3V IMPRESSION: Unremarkable examination. EXAMINATION: XR SHOULDER, LEFT CLINICAL INFORMATION: Nontraumatic left shoulder pain COMPARISON: Chest radiography 08/22/2020 TECHNIQUE: AP external rotation, Grashey, and scapular Y views of the left shoulder. FINDINGS: Mineralization is normal. There is no fracture or dislocation. There is mild narrowing and irregularity of the glenohumeral joint with mild superior subluxation of the humeral head and prominent inferior marginal osteophyte on the head. The periarticular soft tissues appear unremarkable. IMPRESSION: No acute fracture or dislocation. Arthritic change in the glenohumeral joint.
--- NOTE | ~2020-09-27 | XR_ITS ---
EXAMINATION: XR LUMBOSACRAL SPINE CLINICAL INFORMATION: Low back pain with midline tenderness COMPARISON: 01/05/2013 TECHNIQUE: Three views of the lumbosacral spine. FINDINGS: The vertebral bodies and posterior elements are normal. The disc spaces are preserved and the vertebral alignment is normal. The paraspinal soft tissues are normal. XR/XR shoulder LT min 2V IMPRESSION: Unremarkable examination. EXAMINATION: XR SHOULDER, LEFT CLINICAL INFORMATION: Nontraumatic left shoulder pain COMPARISON: Chest radiography 08/22/2020 TECHNIQUE: AP external rotation, Grashey, and scapular Y views of the left shoulder. FINDINGS: Mineralization is normal. There is no fracture or dislocation. There is mild narrowing and irregularity of the glenohumeral joint with mild superior subluxation of the humeral head and prominent inferior marginal osteophyte on the head. The periarticular soft tissues appear unremarkable. IMPRESSION: No acute fracture or dislocation. Arthritic change in the glenohumeral joint.
[2020-09-27 17:23] VITALS: BP 118/73; PULSE 72; RESP 16; TEMP 36.6; O2SAT 97; BMI 34.0
[2020-09-27 17:36] LABS: Glucose Urine UA NEG (NEG); Leukocyte Esterase Urine NEG (NEG); Nitrite Urine NEG (NEG); Specific Gravity - Urine 1.025 (1.005-1.025); Urine Blood NEG (NEG); Urine Ketones NEG (NEG); Urine Protein NEG (NEG-TRACE)
[2020-09-27 17:38] LABS: Appearance Urine CLEAR; Color Urine YELLOW
--- NOTE | 2020-09-27 18:18 | ED.BACK ---
HPI - Back Pain/Injury General Chief Complaint: Back Pain/Injury Stated Complaint: lower back pain Time Seen by Provider: 09/27/20 18:17 Source: patient and fisher line Mode of arrival: ambulatory Limitations: language barrier History of Present Illness HPI Narrative: 50-year-old female here with complaints of lower back pain for 3 days with no injury or trauma. Patient also complaining of chronic left shoulder pain for several weeks. Patient tells me she is currently caring for her mom at home who was on hospice. She does daily reposition her and lift her and believes this may have antagonize her shoulder and lower back. There is no radiation of pain. No numbness or tingling. No bowel or bladder incontinence. No fevers or chills. The patient is ambulatory. The patient tells me she has not tried any [id number] medications. She tells me that her doctor is hesitant to prescribe her medications as she has overdosed 3 times on prescription medications intentionally. The patient tells me that she does have depression and feels depressed daily but denies any current suicidal thoughts. She has a therapist and psychiatrist who she sees regularly. Related Data Home Medications Medication Instructions Recorded Confirmed alprazolam 1 mg tablet 1 mg PO DAILY PRN 11/19/19 07/07/20 cholecalciferol (vitamin D3) 25 25 mcg PO DAILY 01/06/20 07/07/20 mcg (1,000 unit) capsule lamotrigine 25 mg tablet 25 mg PO BID 09/08/20 Previous Rx's Medication Instructions Recorded acetaminophen 325 mg tablet 325 mg PO Q8-12H PRN #10 tab 02/26/20 (Tylenol) ibuprofen 600 mg tablet 600 mg PO Q8H PRN #30 tab 02/28/20 sumatriptan succinate 100 mg tablet 100 mg PO Q2-4H PRN #30 tab 05/06/20 bisacodyl 5 mg tablet,delayed 10 mg PO ONCE 1 Days #2 tab 07/07/20 release (Dulcolax (bisacodyl)) albuterol sulfate 90 mcg/actuation 2 puff INHALATION Q6H PRN #8.5 g 08/26/20 aerosol inhaler (Ventolin HFA) lidocaine 5 % topical patch 1 patch TOPICAL DAILY #15 ea 09/27/20 (Lidoderm) naproxen 500 mg tablet 500 mg PO BID PRN #15 tab 09/27/20 Allergies Allergy/AdvReac Type Severity Reaction Status Date / Time buprenorphine [From SUBOXONE] Allergy Unknown UNKNOWN Verified 09/08/20 14:42 gabapentin [GABAPENTIN] Allergy Unknown VISION AND Verified 09/08/20 14:42 BALANCE AFFECTED naloxone [From SUBOXONE] Allergy Unknown UNKNOWN Verified 09/08/20 14:42 Butrans Allergy Unknown site Uncoded 08/26/20 14:43 redness/swelling Review of Systems Review of Systems: Yes all other systems are reviewed and are negative Constitutional: Constitutional: Reports no additional constitutional complaints, Denies body ache(s), Denies chills, Denies fever(s), Denies headache(s) and Denies weakness Eyes: Eyes: Reports no additional eye complaints and Denies change in vision ENT: Reports system reviewed and no additional complaints, except as documented, Denies dizziness, Denies headache(s), Denies nasal congestion, Denies nasal discharge and Denies neck pain Cardiovascular: Cardiovascular: Reports no additional cardiovascular complaints, Denies chest pain, Denies leg edema and Denies dyspnea Respiratory: Respiratory: Reports no additional respiratory complaints, Denies cough and Denies dyspnea Gastrointestinal: Gastrointestinal: Reports no additional gastrointestinal complaints, Denies abdominal pain, Denies diarrhea, Denies nausea and Denies vomiting Genitourinary: Genitourinary: Reports no additional female genitourinary complaints and Denies urinary incontinence Musculoskeletal: Musculoskeletal: Reports no additional musculoskeletal complaints, Reports back pain, Reports arthralgias, Denies joint swelling, Denies neck pain, Denies numbness and Denies tingling Integumentary/Breasts: Skin/Breast: Reports system reviewed and no additional complaints, except as docu and Denies rash Neurologic: Reports system reviewed and no additional complaints, except as documented, Denies Abnormal speech present, Denies dizziness, Denies headache(s), Denies numbness, Denies tingling and Denies weakness [facility] Past Medical History Attestation statement: The following information was validated with the patient. Source: old records reviewed and nursing notes reviewed Medical History Acid reflux Annual physical exam Anxiety Arthritis Asthma Calcific tendonitis of right shoulder region Chest pain Depression Family history of colonic polyps History of cocaine abuse Hx of concussion Migraine headache NAFLD (nonalcoholic fatty liver disease) Normal Pap smear Overdose Premenopausal menorrhagia Shoulder tendinitis Surgical History History of shoulder surgery History of tubal ligation History of umbilical hernia repair Hx of colonoscopy Family History Family History Mother HTN (hypertension) Anxiety Depression Sister Colon polyps Brother Colon polyps Social History Social History Household Members: Children Alcohol intake: never Patient Tobacco Use Status: Former Tobacco user Quit Date: 2009 e-Cigarette/Vaping Use: Never Used Second Hand Smoke Exposure: Yes Advance Directives: No Advance Directives Information Provided: No Current occupational status: unemployed Physical Exam Vital Signs: Vital Signs: Last Vital Signs Temp 97.9 F 09/27/20 17:23 Pulse 72 09/27/20 17:23 Resp 16 09/27/20 17:23 BP 118/73 09/27/20 17:23 Pulse Ox 97 09/27/20 17:23 Body Mass Index 34.0 Const: General: cooperative, healthy appearing, comfortable and no acute distress Orientation/consciousness: patient oriented x3 Limitations: no limitations HENMT: Head: Yes normal to inspection Ears: hearing grossly normal bilaterally General nose exam: Normal external nose present Face and sinus: Yes normal facial exam Mouth: Normal oral and palatal mucosa present Throat: Yes posterior oropharynx normal Eyes: General: appearance normal, both eyes and all related structures Pupils: Equal, round and reactive pupils present Neck: Neck: Yes normal visual inspection Chest: Chest palpation & inspection: normal inspection of the chest Resp: Effort & Inspection: normal respiratory effort Auscultation: clear to auscultation bilaterally Cardio: Rate: regular rate Rhythm: regular rhythm Peripheral pulses: Peripheral pulses 2+ throughout GI: Inspection: Yes normal to inspection Palpation (GI): Soft to palpation and nontender Auscultation: normal bowel sounds : General: Yes no CVA tenderness Back/Spine/Pelvis: Other: lumbar midline tenderness with no step offs or deformities. Lower lumbar soft tissue tenderness bilaterally Back: no CVA tenderness Thoracic/Lumbar Spine: thoracic and lumbar spine normal to inspection Skin: General skin exam: no rashes or lesions noted Neuro: General: patient oriented x3, no focal motor deficits and normal sensation to monofilament Cranial nerves: Yes Equal, round and reactive pupils present Cognition (Neuro): normal cognition Speech: No Abnormal speech present Gait exam (Neuro): Normal gait present Motor exam (neuro): 5/5 motor strength present throughout Extrem: Other: Tenderness to the left proximal humerus with pain with abduction. Neurovascularly intact distally no obvious swelling, erythema or deformity General: Yes normal to inspection Course Course Course Narrative: 50-year-old female here with complaints of lower back pain for 3 days with no known injury or trauma. However after further discussion with the patient she tells me that she has been caring for her mother at home who is on hospice and quite frequently has to reposition and move her. Also complaining of chronic left shoulder pain which has been antagonize by caring for her mom. Will check imaging. Provide Toradol and reassess. 2100-lumbar x-ray shows no acute finding. Images of left shoulder show severe osteoarthritis. No acute fracture. Reviewed findings with the patient. Recommended follow-up with Orthopedics. She is requesting medication to be discharged home with. She tells me her doctor has stopped prescribing many of her medications because of her multiple intentional overdoses in the past. Therefore, we have agreed on a small amount of nonsteroidal anti-inflammatories and medicated patches for her symptoms and she may follow-up with orthopedics outpatient. Reviewed worrisome signs and symptoms and when to return to the emergency department. Comfortable discharge home. MDM - Back Pain/Injury Medical Records Attestation: I reviewed the patient's medical records. Lab Data Attestation: I reviewed the patient's lab results. Labs: Lab Results 09/27/20 Range/Units 17:29 Urine Color YELLOW Urine Appearance CLEAR Urine pH 6.0 (5.0-8.0) Ur Specific [place] 1.025 (1.005-1.025) Urine Protein NEG (NEG-TRACE) MG/DL Urine Glucose (UA) NEG (NEG) MG/DL Urine Ketones NEG (NEG) MG/DL Urine Blood NEG (NEG) Urine Nitrite NEG (NEG) Ur Leukocyte Esterase NEG (NEG) Imaging Data lumbar xray: Attestation: I personally reviewed and interpreted this imaging study as follows: Radiologist's impression: no acute finding shoulder left xray: Attestation: I personally reviewed and interpreted this imaging study as follows: Radiologist's impression: severe-moderate OA Discharge Plan Discharge Clinical Impression: Strain of lumbar region Qualifiers: Encounter type: initial encounter Qualified Code(s): S39.012A - Strain of muscle, fascia and tendon of lower back, initial encounter Osteoarthritis Qualifiers: Osteoarthritis location: shoulder Osteoarthritis type: primary Laterality: left Qualified Code(s): M19.012 - Primary osteoarthritis, left shoulder Patient Disposition: Home, Self-Care Instructions: Osteoarthritis (ED), Acute Low Back Pain (ED) Additional Instructions: Heat or ice Gentle stretching Follow-up with Orthopedics as discussed Prescriptions: New naproxen 500 mg tablet 500 mg PO BID PRN (Reason: pain) Qty: 15 RF: 0 lidocaine [Lidoderm] 5 % adhesive patch,medicated 1 patch topical DAILY Qty: 15 RF: 0 No Action ibuprofen 600 mg tablet 600 mg PO Q8H PRN (Reason: pain) Qty: 30 RF: 0 sumatriptan succinate 100 mg tablet 100 mg PO Q2-4H PRN (Reason: migraine headache) Qty: 30 RF: 0 acetaminophen [Tylenol] 325 mg tablet 325 mg PO Q8-12H PRN (Reason: pain) Qty: 10 RF: 0 alprazolam 1 mg tablet 1 mg PO DAILY PRN (Reason: Anxiety) RF: 0 albuterol sulfate [Ventolin HFA] 90 mcg/actuation HFA aerosol inhaler 2 puff inhalation Q6H PRN (Reason: shortness of breath or wheezing) Qty: 8.5 RF: 3 lamotrigine 25 mg tablet 25 mg PO BID RF: 0 cholecalciferol (vitamin D3) 25 mcg (1,000 unit) capsule 25 mcg PO DAILY RF: 0 bisacodyl [Dulcolax (bisacodyl)] 5 mg tablet,delayed release (DR/EC) 10 mg PO ONCE 1 Days Qty: 2 RF: 0 Referrals: Lazaro Frances MD [Physician] - 2 days Interventions: ED Discharge Assessment Last Done: 09/27/20 20:54 Discharge Date/Time: 09/27/20 20:55 Print Language: Iranian
[2020-09-27] MEDS: Ketorolac Tromethamine 60 MG/2 ML VIAL IM (19:12)
== END 2020-09-27 20:55 | disposition home or self-care (01) ==
PROVIDERS: Emergency Provider Internal Medicine; PCP Internal Medicine
DX: S39.012A Strain of muscle, fascia and tendon of lower back, initial encounter (principal); M19.012 Primary osteoarthritis, left shoulder; X58.XXXA Exposure to other specified factors, initial encounter; Y93.9 Activity, unspecified; Y92.9 Unspecified place or not applicable; Y99.9 Unspecified external cause status; Z79.899 Other long term (current) drug therapy
CPT/HCPCS: 72100; 73030; 81003; 96372; 99283; 99284; J1885

== ENCOUNTER → 2020-10-08 14:17 | Outpatient (BNVA) | payer OTHER, SELFPAY | PROVIDERS: PCP Internal Medicine; Visit Provider Orthopaedic Surgery | DX: M25.562 Pain in left knee (principal) | CPT/HCPCS: 99212 ==

== ENCOUNTER 2020-10-13 16:34 | Emergency (ER) | payer OTHER, SELFPAY ==
--- NOTE | ~2020-10-13 | XR_ITS ---
EXAMINATION: XR CHEST CLINICAL INFORMATION: US RI symptoms. COMPARISON: Chest 08/22/2020 TECHNIQUE: 2 views of the chest were obtained. FINDINGS: No significant abnormality is noted involving the heart, lungs, mediastinum, bony thorax or soft tissues. XR/XR chest 2V IMPRESSION: Unremarkable chest examination.
[2020-10-13 17:29] VITALS: BP 145/79; PULSE 73; RESP 18; TEMP 36.8; O2SAT 95; BMI 32.3
[2020-10-13 18:03] LABS: MANUAL DIFF FLAG NO
[2020-10-13 18:18] LABS: Alanine Aminotransferase 15 U/L (0-31); Albumin Level 4.1 g/dL (3.5-5.0); Alkaline Phosphatase 99 U/L (39-117); Anion Gap 10 (12-20); Aspartate Amino Transferase 18 U/L (5-31); Bilirubin Total 0.5 mg/dL (0.0-1.0); Blood Urea Nitrogen 10 mg/dL (9-16); Calcium 9.5 mg/dL (8.4-10.2); Carbon Dioxide 28 mmol/L (22-29); Chloride 106 mmol/L (96-108); Creatinine Clr Calc Pharmacy 100.2; Estimated Glomerular Filt Rate > 60; Glucose Random 88 mg/dL (60-115); Sodium 140 mmol/L (135-145); Total Protein 8.3 g/dL (6.5-8.0)
[2020-10-13 18:21] LABS: COVID-19 Test Negative (Negative)
[2020-10-13 18:31] LABS: Basophils Absolute Auto 0.1 X10*3/uL (0.0-0.2); Basophils Percent Auto 0.9 % (0-2); Eosinophils Absolute Auto 0.9 X10*3/uL (0.0-0.4); Eosinophils Percent Auto 7.6 % (0-4); Hematocrit 40.9 % (37-47); Hemoglobin 12.6 g/dl (12.0-16.0); Imm Gran Abs Auto 0.03 X10*3/uL (0.00-0.03); Imm Gran Pct Auto 0.3 % (0.0-0.4); Lymphocytes Absolute Auto 2.4 X10*3/uL (1.2-4.9); Mean Corpuscular HGB Conc 30.8 g/dl (31.0-35.0); Mean Corpuscular Hemoglobin 25.6 pg (27.0-33.0); Mean Platelet Volume 10.5 fL (9.4-12.3); Monocytes Absolute Auto 1.1 X10*3/uL (0.1-1.2); Monocytes Percent Auto 9.8 % (2-11); Neutrophils Absolute Auto 6.9 X10*3/uL (2.0-8.3); Neutrophils Percent Auto 60.4 % (45-73); Platelet Count 307 X10*3/uL (160-400); Red Blood Count 4.93 X10*6/uL (4.20-5.50); Red Cell Distribution Width 16.1 % (11.0-16.0); White Blood Count 11.5 X10*3/uL (4.8-10.8)
--- NOTE | 2020-10-13 18:50 | ED_ITS ---
HPI - Fever General Chief Complaint: Fever Stated Complaint: fever Time Seen by Provider: 10/13/20 20:37 Source: patient Mode of arrival: ambulatory Limitations: language barrier History of Present Illness HPI Narrative: 50-year-old female presents with 2 days of upper respiratory symptoms and fevers. Patient is requesting COVID-19 testing. MD elicited complaint: fever Onset (ago): day(s) (2) Context: sick contacts Exacerbating factors: nothing Relieving factors: nothing Associated symptoms: chills, nasal congestion and shortness of breath Treatments prior to arrival fever: none Related Data Home Medications Medication Instructions Recorded Confirmed alprazolam 1 mg tablet 1 mg PO DAILY PRN 11/19/19 07/07/20 cholecalciferol (vitamin D3) 25 25 mcg PO DAILY 01/06/20 07/07/20 mcg (1,000 unit) capsule lamotrigine 25 mg tablet 25 mg PO BID 09/08/20 Previous Rx's Medication Instructions Recorded acetaminophen 325 mg tablet 325 mg PO Q8-12H PRN #10 tab 02/26/20 (Tylenol) ibuprofen 600 mg tablet 600 mg PO Q8H PRN #30 tab 02/28/20 sumatriptan succinate 100 mg tablet 100 mg PO Q2-4H PRN #30 tab 05/06/20 bisacodyl 5 mg tablet,delayed 10 mg PO ONCE 1 Days #2 tab 07/07/20 release (Dulcolax (bisacodyl)) albuterol sulfate 90 mcg/actuation 2 puff INHALATION Q6H PRN #8.5 g 08/26/20 aerosol inhaler (Ventolin HFA) lidocaine 5 % topical patch 1 patch TOPICAL DAILY #15 ea 09/27/20 (Lidoderm) naproxen 500 mg tablet 500 mg PO BID PRN #15 tab 09/27/20 Allergies Allergy/AdvReac Type Severity Reaction Status Date / Time buprenorphine [From SUBOXONE] Allergy Unknown UNKNOWN Verified 09/08/20 14:42 gabapentin [GABAPENTIN] Allergy Unknown VISION AND Verified 09/08/20 14:42 BALANCE AFFECTED naloxone [From SUBOXONE] Allergy Unknown UNKNOWN Verified 09/08/20 14:42 Butrans Allergy Unknown site Uncoded 08/26/20 14:43 redness/swelling Review of Systems Review of Systems: Constitutional: Positive Fever, positive Chills ENT/Mouth: No Ear Pain, No Hoarseness, No sore throat Eyes: No Eye Pain, No Swelling, No Redness, No Foreign Body Cardiovascular: No Chest Pain, No SOB Respiratory: Positive Cough, No Dyspnea Gastrointestinal: No Nausea, No Vomiting, No Diarrhea, No abdominal Pain Genitourinary: No Dysuria, No Hematuria Musculoskeletal: positive joint pain, No Myalgias, No Joint Swelling Skin: No Skin lacerations, No rash Neuro: No Weakness, No Numbness, No Paresthesias, No Loss of Consciousness, No Dizziness, No Headache Psych: No Anxiety/Panic, No Depression Heme/Lymph: no easy bruising, no Lymphadenopathy Endocrine: No Polyuria, No Polydipsia Yes all other systems are reviewed and are negative [facility] Past Medical History Attestation statement: The following information was validated with the patient. Source: old records reviewed Medical History Acid reflux Annual physical exam Anxiety Arthritis Asthma Calcific tendonitis of right shoulder region Chest pain Depression Family history of colonic polyps History of cocaine abuse Hx of concussion Migraine headache NAFLD (nonalcoholic fatty liver disease) Normal Pap smear Overdose Premenopausal menorrhagia Shoulder tendinitis Surgical History History of shoulder surgery History of tubal ligation History of umbilical hernia repair Hx of colonoscopy Family History Family History Mother HTN (hypertension) Anxiety Depression Sister Colon polyps Brother Colon polyps Social History Social History Household Members: Children Alcohol intake: never Patient Tobacco Use Status: Former Tobacco user Quit Date: 2009 e-Cigarette/Vaping Use: Never Used Second Hand Smoke Exposure: Yes Advance Directives: No Advance Directives Information Provided: Yes Patient : No Current occupational status: unemployed Physical Exam Vital Signs: Vital Signs: Last Vital Signs Temp 98.3 F 10/13/20 17:29 Pulse 73 10/13/20 17:29 Resp 18 10/13/20 17:29 BP 145/79 H 10/13/20 17:29 Pulse Ox 95 10/13/20 17:29 Body Mass Index 32.3 Appearance: Alert. Oriented X3. No acute distress. Eyes: Pupils equal, round and reactive to light. ENT: Pharynx normal. Neck: Normal inspection. Neck supple. CVS: Normal heart rate and rhythm. Pulses normal. Respiratory: No respiratory distress. Breath sounds normal. Abdomen: Soft and nontender. Skin: Skin warm and dry. Normal skin color. Normal skin turgor. Extremities: No lower extremity edema. Gait well balanced well coordinated. Neuro: No motor deficit. No sensory deficit. Cranial nerves 2-12 intact. Course Course Course Narrative: 50-year-old female presents with upper respiratory symptoms for approximately 2 days. Requesting COVID-19 testing. Will order chest x-ray as well, labs drawn in the emergency department waiting room, does have an elev ated white count of 11.5. Patient is afebrile at this time, appears nontoxic, vital signs within normal limits and stable. O2 sat 95% and above. COVID test is negative. Chest x-ray is within normal limits, no indication of pneumonia. Will send patient home with supportive measures. Maltese int erpreter utilized for all correspondence. Google translate utilized for discharge instructions. Patient verbalized understanding of and agrees to plan of care discharge home. MDM - Fever Differential Diagnosis Differential diagnosis: Likely viral infection and influenza Medical Records Attestation: I reviewed the patient's medical records. Lab Data Attestation: I reviewed the patient's lab results. Result diagrams: 10/13/20 17:57 10/13/20 17:57 Labs: Lab Results 10/13/20 10/13/20 10/13/20 Range/Units 17:52 17:57 17:57 WBC 11.5 H (4.8-10.8) X10*3/uL RBC 4.93 (4.20-5.50) X10*6/uL Hgb 12.6 (12.0-16.0) g/dl Hct 40.9 (37-47) % MCV 83.0 (80-98) fL MCH 25.6 L (27.0-33.0) pg MCHC 30.8 L (31.0-35.0) g/dl RDW 16.1 H (11.0-16.0) % Plt Count 307 (160-400) X10*3/uL MPV 10.5 (9.4-12.3) fL Immature Gran % (Auto) 0.3 (0.0-0.4) % Neut % (Auto) 60.4 (45-73) % Lymph % (Auto) 21.0 (20-40) % [place] % (Auto) 9.8 (2-11) % Eos % (Auto) 7.6 H (0-4) % Baso % (Auto) 0.9 (0-2) % Lymph # (Auto) 2.4 (1.2-4.9) X10*3/uL [place] # (Auto) 1.1 (0.1-1.2) X10*3/uL Eos # (Auto) 0.9 H (0.0-0.4) X10*3/uL Baso # (Auto) 0.1 (0.0-0.2) X10*3/uL Abs Immat Gran (auto) 0.03 (0.00-0.03) X10*3/uL Absolute Neuts (auto) 6.9 (2.0-8.3) X10*3/uL Absolute Nucleated RBC 0.000 (0.0-0.012) X10*3/uL Nucleated RBC % (auto) 0.0 (0.0-0.2) /100WBC Sodium 140 (135-145) mmol/L Potassium 4.0 (3.3-5.1) mmol/L Chloride 106 (96-108) mmol/L Carbon Dioxide 28 (22-29) mmol/L Anion Gap 10 L (12-20) BUN 10 (9-16) mg/dL Creatinine 0.77 (0.5-1.4) mg/dL Estim Creat Clear Calc 100.2 Estimated GFR > 60 Random Glucose 88 (60-115) mg/dL Calcium 9.5 (8.4-10.2) mg/dL Total Bilirubin 0.5 (0.0-1.0) mg/dL AST 18 (5-31) U/L ALT 15 (0-31) U/L Alkaline Phosphatase 99 (39-117) U/L Total Protein 8.3 H (6.5-8.0) g/dL Albumin 4.1 (3.5-5.0) g/dL COVID-19 (PO) Negative (Negative) COVID-19 Clin Com See Note Imaging Data Chest x-ray: Attestation: I personally reviewed and interpreted this imaging study as follows: Radiologist's impression: EXAMINATION: XR CHEST CLINICAL INFORMATION: US RI symptoms. COMPARISON: Chest 08/22/2020 TECHNIQUE: 2 views of the chest were obtained. FINDINGS: No significant abnormality is noted involving the heart, lungs, mediastinum, bony thorax or soft tissues. XR/XR chest 2V IMPRESSION: Unremarkable chest examination. Discharge Plan Discharge Clinical Impression: Viral infection Patient Disposition: Home, Self-Care Instructions: Viral Syndrome (ED) Additional Instructions: Fue evaluado por s?ntomas de las v?as respiratorias superiores y fiebre. Dania radiograf?as son negativas para neumon?a. Hernández prueba de COVID es negativa. Contin?e utilizando medidas de apoyo para los s?ntomas de las v?as respiratorias superiores. Utilice Tylenol y Motrin seg?n sea necesario para controlar el dolor y la fiebre. Anote a qu? hora laly estos medicamentos para evitar nico sobredosis accidental. Beber mucho l?quido. Descansar. Rachel por elegir dave departamento de emergencias para hernández evaluaci?n. Zane un seguimiento con hernández m?dico de atenci?n primaria seg?n sea necesario. Regrese al departamento de emergencias por cualquier s?ntoma nuevo, preocupante o que empeore. You were evaluated For upper respiratory symptoms and fever. Your x-rays are negative for pneumonia. Your COVID test is negative. Please continue to use supportive measures for upper respiratory symptoms. Please use Tylenol and Motrin as needed for pain and fever management. Write down what time you take these medications to prevent accidental overdose. Drink plenty of fluids. Rest. Thank you for choosing this emergency department for evaluation. Please follow-up with primary care physician as needed. Return to the emergency department for any new, concerning, or worsening symptoms. Prescriptions: No Action ibuprofen 600 mg tablet 600 mg PO Q8H PRN (Reason: pain) Qty: 30 RF: 0 sumatriptan succinate 100 mg tablet 100 mg PO Q2-4H PRN (Reason: migraine headache) Qty: 30 RF: 0 acetaminophen [Tylenol] 325 mg tablet 325 mg PO Q8-12H PRN (Reason: pain) Qty: 10 RF: 0 naproxen 500 mg tablet 500 mg PO BID PRN (Reason: pain) Qty: 15 RF: 0 lidocaine [Lidoderm] 5 % adhesive patch,medicated 1 patch topical DAILY Qty: 15 RF: 0 alprazolam 1 mg tablet 1 mg PO DAILY PRN (Reason: Anxiety) RF: 0 albuterol sulfate [Ventolin HFA] 90 mcg/actuation HFA aerosol inhaler 2 puff inhalation Q6H PRN (Reason: shortness of breath or wheezing) Qty: 8.5 RF: 3 lamotrigine 25 mg tablet 25 mg PO BID RF: 0 cholecalciferol (vitamin D3) 25 mcg (1,000 unit) capsule 25 mcg PO DAILY RF: 0 bisacodyl [Dulcolax (bisacodyl)] 5 mg tablet,delayed release (DR/EC) 10 mg PO ONCE 1 Days Qty: 2 RF: 0 Interventions: ED Discharge Assessment Last Done: 10/13/20 21:25 Discharge Date/Time: 10/13/20 21:26
== END 2020-10-13 21:26 | disposition home or self-care (01) ==
PROVIDERS: Emergency Provider Emergency Medicine; PCP Internal Medicine
DX: B34.9 Viral infection, unspecified (principal); Z20.822 Contact with and (suspected) exposure to COVID-19
CPT/HCPCS: 36415; 71046; 80053; 85025; 87635; 99283

== ENCOUNTER 2020-10-28 14:26 | Outpatient (REF) | payer OTHER, SELFPAY ==
--- NOTE | ~2020-10-28 | MM_ITS ---
EXAMINATION: MM SCREENING DIGITAL BREAST TOMOSYNTHESIS, BILATERAL CLINICAL INFORMATION: Screening. Asymptomatic. The lifetime risk of breast cancer based on the Tyrer-Cuzick Model is 7.1%. COMPARISON: Mammography: None TECHNIQUE: Digital breast tomosynthesis is performed in both the craniocaudal and mediolateral oblique views along with computer-aided detection (CAD). Synthesized 2D images are generated from the tomosynthesis. FINDINGS: There are scattered areas of fibroglandular density (ACR BI-RADS breast composition Category b). There are no significant masses, abnormal calcifications, or other abnormalities. MM/MM tomosynthesis screening BI IMPRESSION: There are no significant changes from prior study. ASSESSMENT: BI-RADS 1: Negative RECOMMENDATION: Routine annual mammography screening. This patient's information was entered into a reminder system with a target due date for their next mammogram.
== END 2020-10-28 14:27 | disposition home or self-care (01) ==
LOC: HO.MAMMO 14:26
PROVIDERS: Visit Provider Obstetrics & Gynecology
DX: Z12.31 Encounter for screening mammogram for malignant neoplasm of breast (principal)
CPT/HCPCS: 77063; 77067

== ENCOUNTER 2020-12-14 13:06 | Emergency (ER) | payer OTHER, SELFPAY | END 2020-12-14 19:54 | disposition left against medical advice (07) | PROVIDERS: Emergency Provider Emergency Medicine; PCP Internal Medicine | DX: J00 Acute nasopharyngitis [common cold] (principal) ==

== ENCOUNTER 2021-01-16 14:15 | Emergency (ER) | payer OTHER, SELFPAY ==
--- NOTE | ~2021-01-16 | XR_ITS ---
EXAMINATION: XR CHEST CLINICAL INFORMATION: Cough. Covid positive. COMPARISON: Previous chest x-ray most recent October 2020 TECHNIQUE: Frontal view of the chest was obtained. FINDINGS: No significant abnormality is noted involving the heart, lungs, mediastinum, bony thorax or soft tissues. XR/XR chest 1V IMPRESSION: Unremarkable examination.
[2021-01-16 14:18] VITALS: BP 133/78; PULSE 75; RESP 18; TEMP 36.9; O2SAT 97; BMI 32.9
[2021-01-16 14:45] LABS: COVID-19 Test Positive (Negative); IDNOW Serial# 55D5AD1C
--- NOTE | 2021-01-16 15:32 | ED_ITS ---
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 Had fever Monday night (subjective) but none since. No chest pain, shortness of breath, leg swelling or pain, vomiting, diarrhea or abdominal pain. She received COVID vaccine x2 Related Data Home Medications Medication Instructions Recorded Confirmed alprazolam 1 mg tablet 1 mg PO DAILY PRN 11/19/19 07/07/20 cholecalciferol (vitamin D3) 25 25 mcg PO DAILY 01/06/20 07/07/20 mcg (1,000 unit) capsule lamotrigine 25 mg tablet 25 mg PO BID 09/08/20 Previous Rx's Medication Instructions Recorded acetaminophen 325 mg tablet 325 mg PO Q8-12H PRN #10 tab 02/26/20 (Tylenol) ibuprofen 600 mg tablet 600 mg PO Q8H PRN #30 tab 02/28/20 sumatriptan succinate 100 mg tablet 100 mg PO Q2-4H PRN #30 tab 05/06/20 bisacodyl 5 mg tablet,delayed 10 mg PO ONCE 1 Days #2 tab 07/07/20 release (Dulcolax (bisacodyl)) lidocaine 5 % topical patch 1 patch TOPICAL DAILY #15 ea 09/27/20 (Lidoderm) naproxen 500 mg tablet 500 mg PO BID PRN #15 tab 09/27/20 albuterol sulfate 90 mcg/actuation 2 puff INHALATION Q6H PRN #8.5 ea 01/05/21 aerosol inhaler (ProAir HFA) prednisone 20 mg tablet 40 mg PO DAILY #10 tab 01/16/21 Allergies Allergy/AdvReac Type Severity Reaction Status Date / Time buprenorphine [From SUBOXONE] Allergy Unknown UNKNOWN Verified 09/08/20 14:42 gabapentin [GABAPENTIN] Allergy Unknown VISION AND Verified 09/08/20 14:42 BALANCE AFFECTED naloxone [From SUBOXONE] Allergy Unknown UNKNOWN Verified 09/08/20 14:42 Butrans Allergy Unknown site Uncoded 08/26/20 14:43 redness/swelling Review of Systems Review of Systems: Yes all other systems are reviewed and are negative Constitutional: Constitutional: Reports no additional constitutional complaints, Denies body ache(s), Denies chills, Denies fever(s), Denies headache(s) and Denies weakness Eyes: Eyes: Reports no additional eye complaints and Denies change in vision ENT: Reports system reviewed and no additional complaints, except as documented, Denies dizziness, Denies headache(s), Denies nasal congestion, Denies nasal discharge and Denies neck pain Cardiovascular: Cardiovascular: Reports no additional cardiovascular complaints, Denies chest pain, Denies leg edema and Denies dyspnea Respiratory: Respiratory: Reports no additional respiratory complaints, Reports cough, Denies dyspnea and Reports wheezing Gastrointestinal: Gastrointestinal: Reports no additional gastrointestinal complaints, Denies abdominal pain, Denies diarrhea, Denies nausea and Denies vomiting Genitourinary: Genitourinary: Reports no additional female genitourinary complaints and Denies urinary incontinence Musculoskeletal: Musculoskeletal: Reports no additional musculoskeletal complaints, Denies back pain, Denies arthralgias, Denies joint swelling, Denies neck pain, Denies numbness and Denies tingling Integumentary/Breasts: Skin/Breast: Reports system reviewed and no additional complaints, except as docu and Denies rash Neurologic: Reports system reviewed and no additional complaints, except as documented, Denies Abnormal speech present, Denies dizziness, Denies headache(s), Denies numbness, Denies tingling and Denies weakness Allergic/Immunologic: Allergic/Immunologic: Reports wheezing PMFSH Past Medical History Attestation statement: The following information was validated with the patient. Source: old records reviewed and nursing notes reviewed Medical History Acid reflux Annual physical exam Anxiety Arthritis Asthma Calcific tendonitis of right shoulder region Chest pain Depression Family history of colonic polyps History of cocaine abuse Hx of concussion Migraine headache NAFLD (nonalcoholic fatty liver disease) Normal Pap smear Overdose Premenopausal menorrhagia Shoulder tendinitis Surgical History History of shoulder surgery History of tubal ligation History of umbilical hernia repair Hx of colonoscopy Family History Family History Mother HTN (hypertension) Anxiety Depression Sister Colon polyps Brother Colon polyps Social History Social History Household Members: Children Alcohol intake: never Patient Tobacco Use Status: Former Tobacco user Quit Date: 2009 e-Cigarette/Vaping Use: Never Used Second Hand Smoke Exposure: Yes Advance Directives: No Advance Directives Information Provided: Yes Current occupational status: unemployed Physical Exam Vital Signs: Vital Signs: Last Vital Signs Temp 98.4 F 01/16/21 14:18 Pulse 75 01/16/21 14:18 Resp 18 01/16/21 14:18 BP 133/78 01/16/21 14:18 Pulse Ox 97 01/16/21 14:18 BMI result Body Mass Index 32.9 Const: General: cooperative, healthy appearing, comfortable and no acute distress Orientation/consciousness: patient oriented x3 Limitations: no limitations HENMT: Head: Yes normal to inspection Ears: hearing grossly normal bilaterally and TM's normal bilaterally General nose exam: Normal external nose present Face and sinus: Yes normal facial exam Mouth: Normal oral and palatal mucosa present Throat: Yes posterior oropharynx normal, Yes tonsils normal and Yes uvula midline Eyes: General: appearance normal, both eyes and all related structures Pupils: Equal, round and reactive pupils present Neck: Neck: Yes normal visual inspection, Yes full ROM and Yes no lymphaden opathy Chest: Chest palpation & inspection: normal inspection of the chest Resp: Effort & Inspection: normal respiratory effort Auscultation: clear to auscultation bilaterally Cardio: Rate: regular rate Rhythm: regular rhythm Peripheral pulses: Peripheral pulses 2+ throughout GI: Inspection: Yes normal to inspection Palpation (GI): Soft to palpation and nontender Auscultation: normal bowel sounds Back/Spine/Pelvis: Thoracic/Lumbar Spine: thoracic and lumbar spine normal to inspection Skin: General skin exam: no rashes or lesions noted Neuro: General: patient oriented x3, no focal motor deficits and normal sensation to monofilament Cranial nerves: Yes Equal, round and reactive pupils present Cognition (Neuro): normal cognition Speech: No Abnormal speech present Gait exam (Neuro): Normal gait present Motor exam (neuro): 5/5 motor strength present throughout Extrem: General: Yes normal to inspection, Yes no pedal edema and Yes no calf tenderness Course Course Course Narrative: Asthma symptoms for 5-6 days unrelieved with home meds. Initially had a fever but been afebrile for greater than 5 days. Will check COVID screen, chest x-ray 1545-COVID screen positive. Chest x-ray shows no acute finding. Due to history of asthma with reports of wheezing will treat with course of prednisone. Vitals are stable. Oxygen saturation normal. Reviewed worrisome signs symptoms when to return to the emergency department. Comfortable discharge home. MDM - Asthma Medical Records Attestation: I reviewed the patient's medical records. Lab Data Attestation: I reviewed the patient's lab results. Labs: Lab Results 01/16/21 Range/Units 14:21 COVID-19 (PO) Positive A (Negative) COVID-19 Clin Com See Note Imaging Data Chest x-ray: Attestation: I personally reviewed and interpreted this imaging study as follows: Radiologist's impression: [address] [address] XRay Report Signed Patient: Maribel Blanc MR#: [id number] : 1970 Acct:[id number] Age/Sex: 50 / F ADM Date: 01/16/21 Loc: .ED Attending Dr: Ordering Physician: Shannan Manzano NP Date of Service: 01/16/21 Procedure(s): XR chest 1V Accession Number(s): [id number] cc: Shannan Manzano NP~ EXAMINATION: XR CHEST CLINICAL INFORMATION: Cough. Covid positive. COMPARISON: Previous chest x-ray most recent October 2020 TECHNIQUE: Frontal view of the chest was obtained. FINDINGS: No significant abnormality is noted involving the heart, lungs, mediastinum, bony thorax or soft tissues. XR/XR chest 1V IMPRESSION: Unremarkable examination. ? Discharge Plan Discharge Clinical Impression: COVID-19 Patient Disposition: Home, Self-Care Instructions: COVID-19 (Coronavirus Disease 2019) (ED) Additional Instructions: Contin?e usando el inhalador seg?n sea necesario COVID positivo, por lo que necesita cuarentena mark 10 d?as. Aumentar l?quidos, descansar [place] motrin o tylenol para el dolor o la fiebre seg?n sea necesario si puede Watson radiograf?a de t?rax parece normal. Regreso por dolor germain, dificultad para respirar que empeora Prescriptions: New prednisone 20 mg tablet 40 mg PO DAILY Qty: 10 RF: 0 No Action ibuprofen 600 mg tablet 600 mg PO Q8H PRN (Reason: pain) Qty: 30 RF: 0 sumatriptan succinate 100 mg tablet 100 mg PO Q2-4H PRN (Reason: migraine headache) Qty: 30 RF: 0 albuterol sulfate [ProAir HFA] 90 mcg/actuation HFA aerosol inhaler 2 puff inhalation Q6H PRN (Reason: for wheezing) Qty: 8.5 RF: 3 acetaminophen [Tylenol] 325 mg tablet 325 mg PO Q8-12H PRN (Reason: pain) Qty: 10 RF: 0 naproxen 500 mg tablet 500 mg PO BID PRN (Reason: pain) Qty: 15 RF: 0 lidocaine [Lidoderm] 5 % adhesive patch,medicated 1 patch topical DAILY Qty: 15 RF: 0 alprazolam 1 mg tablet 1 mg PO DAILY PRN (Reason: Anxiety) RF: 0 lamotrigine 25 mg tablet 25 mg PO BID RF: 0 cholecalciferol (vitamin D3) 25 mcg (1,000 unit) capsule 25 mcg PO DAILY RF: 0 bisacodyl [Dulcolax (bisacodyl)] 5 mg tablet,delayed release (DR/EC) 10 mg PO ONCE 1 Days Qty: 2 RF: 0 Referrals: Yanet Dobbs MD [Primary Care Provider] - 2 days Interventions: ED Discharge Assessment Last Done: 01/16/21 15:51 Discharge Date/Time: 01/16/21 15:52 Print Language: Iraqi
--- NOTE | 2021-01-16 15:50 | PC.NURSE ---
NO DIFF BREATHING, SPEAKING IN FULL SENTENCES, RESP UNLABORED, STEADY GAIT, VSS.
== END 2021-01-16 15:52 | disposition home or self-care (01) ==
PROVIDERS: Emergency Provider Emergency Medicine; PCP Internal Medicine
DX: U07.1 COVID-19 (principal); J45.909 Unspecified asthma, uncomplicated
CPT/HCPCS: 36415; 71045; 87635; 99283

== ENCOUNTER 2021-04-03 12:00 | Emergency (ER) | payer OTHER, SELFPAY ==
--- NOTE | ~2021-04-03 | XR_ITS ---
EXAMINATION: XR CHEST CLINICAL INFORMATION: Left-sided pain with breathing COMPARISON: None TECHNIQUE: 2 views of the chest were obtained. FINDINGS: Cardiac and mediastinal silhouettes are normal in appearance. No focal consolidation or pleural effusion is seen. No acute osseous abnormality identified. Degenerative changes are seen in the left shoulder XR/XR chest 2V IMPRESSION: No focal consolidation or pleural effusion is identified.
[2021-04-03 12:07] VITALS: BP 137/72; PULSE 82; RESP 18; TEMP 36.7; O2SAT 95; BMI 35.1
--- NOTE | 2021-04-03 13:27 | ED.GENADULT ---
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 Patient states that for the last couple of days, she has had a sharp pain underneath her left breast. Patient states that it is a sharp pain that is worse with inspiration. Patient denies any radiation of pain. Patient denies any dizziness, lightheadedness, abdominal pain, nausea, vomiting, fever, chills, blurry vision, double vision, loss of vision, difficulty breathing, shortness of breath, back pain, night sweats, pain with urination, increased urinary frequency, increased urinary urgency, blood in her urine or stool, syncope or a near syncopal episode, recent trauma or falls, bowel incontinence, bladder incontinence, bowel retention, bladder retention, or any other complaints at this time. Onset (ago): day(s) (2) Related Data Home Medications Medication Instructions Recorded Confirmed alprazolam 1 mg tablet 1 mg PO DAILY PRN 11/19/19 07/07/20 cholecalciferol (vitamin D3) 25 25 mcg PO DAILY 01/06/20 07/07/20 mcg (1,000 unit) capsule lamotrigine 25 mg tablet 25 mg PO BID 09/08/20 Previous Rx's Medication Instructions Recorded acetaminophen 325 mg tablet 325 mg PO Q8-12H PRN #10 tab 02/26/20 (Tylenol) ibuprofen 600 mg tablet 600 mg PO Q8H PRN #30 tab 02/28/20 sumatriptan succinate 100 mg tablet 100 mg PO Q2-4H PRN #30 tab 05/06/20 bisacodyl 5 mg tablet,delayed 10 mg PO ONCE 1 Days #2 tab 07/07/20 release (Dulcolax (bisacodyl)) lidocaine 5 % topical patch 1 patch TOPICAL DAILY #15 ea 09/27/20 (Lidoderm) naproxen 500 mg tablet 500 mg PO BID PRN #15 tab 09/27/20 albuterol sulfate 90 mcg/actuation 2 puff INHALATION Q6H PRN #8.5 ea 01/05/21 aerosol inhaler (ProAir HFA) prednisone 20 mg tablet 40 mg PO DAILY #10 tab 01/16/21 Allergies Allergy/AdvReac Type Severity Reaction Status Date / Time buprenorphine [From SUBOXONE] Allergy Unknown UNKNOWN Verified 09/08/20 14:42 gabapentin [GABAPENTIN] Allergy Unknown VISION AND Verified 09/08/20 14:42 BALANCE AFFECTED naloxone [From SUBOXONE] Allergy Unknown UNKNOWN Verified 09/08/20 14:42 Butrans Allergy Unknown site Uncoded 08/26/20 14:43 redness/swelling Review of Systems Constitutional: Constitutional: Reports no additional constitutional complaints, Denies chills, Denies fever(s) and Denies night sweats Eyes: Eyes: Reports no additional eye complaints, Denies blurry vision, Denies change in vision, Denies diplopia, Denies eye discharge, Denies loss of vision and Denies eye pain ENT: Denies dizziness Cardiovascular: Cardiovascular: Reports no additional cardiovascular complaints, Denies lightheadedness, Denies Loss of Consciousness and Denies dyspnea Respiratory: Respiratory: Reports no additional respiratory complaints and Denies dyspnea Gastrointestinal: Gastrointestinal: Reports no additional gastrointestinal complaints, Denies abdominal pain, Denies melena, Denies hematochezia, Denies change in bowel habits and Denies change in stool character Genitourinary: Genitourinary: Denies hematuria, Denies urinary frequency, Denies dysuria, Denies urinary incontinence, Denies urinary hesitancy and Denies urinary urgency Musculoskeletal: Musculoskeletal: Reports no additional musculoskeletal complaints, Denies numbness and Denies tingling Neurologic: Denies dizziness, Denies loss of vision, Denies numbness and Denies tingling Psychiatric: Psychiatric: Reports no additional psychiatric complaints Endocrine: Endocrine: Reports no additional endocrine complaints Hematologic/Lymphatic: Hematologic/Lymphatic: Reports no additional hematologic/lymphatic complaints Allergic/Immunologic: Allergic/Immunologic: Reports no additional allergic/immunologic complaints PMFSH Past Medical History Attestation statement: The following information was validated with the patient. Source: old records reviewed Medical History Acid reflux Annual physical exam Anxiety Arthritis Asthma Calcific tendonitis of right shoulder region Chest pain Depression Family history of colonic polyps History of cocaine abuse Hx of concussion Migraine headache NAFLD (nonalcoholic fatty liver disease) Normal Pap smear Overdose Premenopausal menorrhagia Shoulder tendinitis Surgical History History of shoulder surgery History of tubal ligation History of umbilical hernia repair Hx of colonoscopy Family History Family History Mother HTN (hypertension) Anxiety Depression Sister Colon polyps Brother Colon polyps Social History Social History Household Members: Children Alcohol intake: never Patient Tobacco Use Status: Former Tobacco user Quit Date: 2009 e-Cigarette/Vaping Use: Never Used Second Hand Smoke Exposure: Yes Advance Directives: No Advance Directives Information Provided: No Current occupational status: unemployed Physical Exam ED Vital Signs: Vital Signs - 24 hr 04/03/21 12:07 Temperature 98.0 F Pulse Rate 82 Respiratory Rate 18 Blood Pressure 137/72 Pulse Oximetry 95 BMI result Body Mass Index 35.1 Const General: cooperative, no acute distress, alert and awake Nutritional Appearance: well nourished Orientation/consciousness: patient oriented x3 Limitations: no limitations HENMT Head: Yes normal to inspection and Yes atraumatic Ears: hearing grossly normal bilaterally and external ears normal General nose exam: Normal external nose present, no nasal discharge noted and no epistaxis Face and sinus: Yes normal facial exam, No abrasion and No laceration Mouth: Normal oral and palatal mucosa present, no drooling and no muffled voice Eyes General: appearance normal, both eyes and all related structures Periorbital: periorbital findings normal Eyelids: Yes eyelids normal Conjunctivae: conjunctivae normal Pupils: Equal, round and reactive pupils present EOM: EOMs intact bilaterally Neck Neck: Yes normal visual inspection, Yes full ROM and Yes no lymphadenopathy Chest Chest palpation & inspection: normal inspection of the chest and other (pain to palpation of the left chest just inferior of the left breast) Resp Effort & Inspection: normal respiratory effort and able to speak in complete sentences Auscultation: clear to auscultation bilaterally Cardio Rate: regular rate Rhythm: regular rhythm GI Inspection: Yes normal to inspection Neuro General: patient oriented x3 and moves all extremities Cranial nerves: Yes Equal, round and reactive pupils present Cognition (Neuro): normal cognition Motor exam (neuro): 5/5 motor strength present throughout Sensory Exam: Normal double simultaneous stimulation for sensation Coordination: [id number] test normal Extrem General: Yes normal to inspection, Yes full ROM and Yes capillary refill normal Psych Appearance: grossly normal Mental Status: mental status grossly normal Affect: normal affect Attitude: cooperative Thought process: Normal thought process present Thought content: Normal thought content present Insight: Good insight present (Psych) Medical Decision Making MDM Narrative Medical decision making narrative: Patient is a 50 year old female presenting to the emergency department today with left chest wall pain. Patient's physical exam showed pain left sided chest pall pain that was reproducible with palpation. Patient's chest x-ray showed no acute process. I explained my physical exam findings as well as all test results to the patient. I answered all questions asked by the patient. Patient received IM toradol which she stated helped her symptoms significantly. I explained to the patient that her physical exam findings are most consistent with a chostochondritis. I stressed the importance of the patient taking her medication as prescribed. I stressed the importance of the patient following up with her primary care provider. I stressed the importance of the patient returning to the emergency department immediately if her symptoms were to worsen or if she were to develop any dizziness, shortness of breath, difficulty breathing, chest pain, blurry vision, loss of vision, nausea, vomiting, abdominal pain, fever, chills, back pain, or any other complaints. Patient verbalized agreement and understanding with this treatment plan and discharge. Differential Diagnosis Differential Diagnosis: costchondritis, chest wall pain Medical Records Medical records reviewed: Yes I reviewed the patient's medical records. Imaging Data Chest x-ray: Attestation: I personally reviewed and interpreted this imaging study as follows: Radiologist's impression: EXAMINATION: XR CHEST CLINICAL INFORMATION: Left-sided pain with breathing COMPARISON: None TECHNIQUE: 2 views of the chest were obtained. FINDINGS: Cardiac and mediastinal silhouettes are normal in appearance. No focal consolidation or pleural effusion is seen. No acute osseous abnormality identified. Degenerative changes are seen in the left shoulder XR/XR chest 2V IMPRESSION: No focal consolidation or pleural effusion is identified. Dictated By: ELIJAH LACKEY MD Signed By: Electronically signed by ELIJAH LACKEY MD 04/03/21 0197 Discharge Plan Discharge Clinical Impression: Acute costochondritis Patient Disposition: Home, Self-Care Instructions: Costochondritis (ED) Additional Instructions: Take ibuprofen for the pain, as directed on the bottle. Follow up with your primary care provider. Return to the emergency department immediately if your symptoms worsen or if you develop any dizziness, shortness of breath, difficulty breathing, chest pain, blurry vision, loss of vision, nausea, vomiting, abdominal pain, fever, chills, back pain, or any other complaints. Prescriptions: No Action ibuprofen 600 mg tablet 600 mg PO Q8H PRN (Reason: pain) Qty: 30 0RF sumatriptan succinate 100 mg tablet 100 mg PO Q2-4H PRN (Reason: migraine headache) Qty: 30 0RF Rx Instructions: do not exceed 2 doses per 24 hrs albuterol sulfate [ProAir HFA] 90 mcg/actuation HFA aerosol inhaler 2 puff inhalation Q6H PRN (Reason: for wheezing) Qty: 8.5 3RF acetaminophen [Tylenol] 325 mg tablet 325 mg PO Q8-12H PRN (Reason: pain) Qty: 10 0RF naproxen 500 mg tablet 500 mg PO BID PRN (Reason: pain) Qty: 15 0RF lidocaine [Lidoderm] 5 % adhesive patch,medicated 1 patch topical DAILY Qty: 15 0RF Rx Instructions: leave on most painful area for up to 12 hrs prednisone 20 mg tablet 40 mg PO DAILY Qty: 10 0RF alprazolam 1 mg tablet 1 mg PO DAILY PRN (Reason: Anxiety) 0RF lamotrigine 25 mg tablet 25 mg PO BID 0RF cholecalciferol (vitamin D3) 25 mcg (1,000 unit) capsule 25 mcg PO DAILY 0RF bisacodyl [Dulcolax (bisacodyl)] 5 mg tablet,delayed release (DR/EC) 10 mg PO ONCE 1 Days Qty: 2 0RF Rx Instructions: Take 2 tablets by mouth at 12:00pm the day before your procedure. Referrals: Yanet Dobbs MD [Primary Care Provider] - 2 days Print Language: Israeli
[2021-04-03] MEDS: Ketorolac Tromethamine 30 MG/ML VIAL IM (14:05)
== END 2021-04-03 14:10 | disposition home or self-care (01) ==
PROVIDERS: Emergency Provider Emergency Medicine Emergency Medical Services; PCP Internal Medicine
DX: M94.0 Chondrocostal junction syndrome [Tietze] (principal)
CPT/HCPCS: 71046; 96372; 99283; 99284; J1885

== ENCOUNTER 2022-04-29 14:44 | Outpatient (REF) | payer OTHER, SELFPAY ==
[2022-04-29 16:51] LABS: MANUAL DIFF FLAG NO
[2022-04-29 16:53] LABS: Basophils Absolute Auto 0.1 X10*3/uL (0.0-0.2); Basophils Percent Auto 1.4 % (0-2); Eosinophils Absolute Auto 0.5 X10*3/uL (0.0-0.4); Eosinophils Percent Auto 6.7 % (0-4); Hematocrit 42.3 % (37.0-47.0); Hemoglobin 13.2 g/dl (12.0-16.0); Imm Gran Abs Auto 0.02 X10*3/uL (0.00-0.03); Imm Gran Pct Auto 0.3 % (0.0-0.4); Lymphocytes Absolute Auto 2.3 X10*3/uL (1.2-4.9); Lymphocytes Percent Auto 32.1 % (20-40); Mean Corpuscular HGB Conc 31.2 g/dl (31.0-35.0); Mean Corpuscular Hemoglobin 27.2 pg (27.0-33.0); Mean Corpuscular Volume 87.2 fL (80.0-98.0); Mean Platelet Volume 10.3 fL (9.4-12.3); Monocytes Absolute Auto 0.6 X10*3/uL (0.1-1.2); Monocytes Percent Auto 8.3 % (2-11); Neutrophils Absolute Auto 3.7 x10*3/uL (2.0-8.3); Neutrophils Percent Auto 51.2 % (45-73); Platelet Count 309 X10*3/uL (160-400); Red Blood Count 4.85 X10*6/uL (4.20-5.50); White Blood Count 7.2 X10*3/uL (4.8-10.8)
[2022-04-29 18:26] LABS: Alanine Aminotransferase 16 U/L (0-31); Albumin Level 3.8 g/dL (3.5-5.0); Alkaline Phosphatase 100 U/L (39-117); Anion Gap 12 (12-20); Aspartate Amino Transferase 20 U/L (5-31); Bilirubin Total 0.6 mg/dL (0.0-1.0); Blood Urea Nitrogen 7 mg/dL (9-16); Calcium 9.3 mg/dL (8.4-10.2); Carbon Dioxide 27 mmol/L (22-29); Chloride 107 mmol/L (96-108); Cholesterol 205 mg/dL; Estimated Glomerular Filt Rate > 60; Glucose Fasting 97 mg/dL (60-99); HDL Cholesterol 47 mg/dL; Iron 97 mcg/dL (30-160); LDL Cholesterol Calculated 139 mg/dl; Percent Iron Saturation 32 % (15-50); Potassium 4.1 mmol/L (3.3-5.1); Sodium 142 mmol/L (135-145); Total Iron Binding Capacity 303 mcg/dL (228-428); Total Protein 7.4 g/dL (6.5-8.0); Triglycerides 99 mg/dL; Unsaturated Iron Binding 206 ug/dL
[2022-04-29 19:07] LABS: TSH reflex Free T4 2.47 uIU/mL (0.32-4.0); Vitamin B12 470 pg/mL (200-900); Vitamin D 25-OH Total 15.3 ng/mL (>30)
[2022-04-29 21:07] LABS: Folate 8.5 ng/mL (> or = 4.0)
== END 2022-04-29 14:45 | disposition home or self-care (01) ==
LOC: HO.HMGCLDS 14:44
PROVIDERS: PCP Internal Medicine; Visit Provider Internal Medicine
DX: N92.4 Excessive bleeding in the premenopausal period (principal); R42 Dizziness and giddiness
CPT/HCPCS: 36415; 80053; 80061; 82306; 82607; 82746; 83540; 84443; 85025

== ENCOUNTER 2022-10-06 12:20 | Outpatient (REF) | payer OTHER, SELFPAY | END 2022-10-06 12:21 | disposition home or self-care (01) | LOC: HO.HOSX 12:20 | PROVIDERS: Visit Provider Orthopaedic Surgery | DX: Z13.89 Encounter for screening for other disorder (principal) ==

== ENCOUNTER 2022-12-06 03:09 | Emergency (ER) | payer OTHER, SELFPAY ==
[2022-12-06 03:13] VITALS: BP 125/86; PULSE 82; RESP 17; TEMP 36.6; O2SAT 97; BMI 33.3
--- NOTE | 2022-12-06 03:22 | ECG_ITS ---
Test Reason : DIZZINESS Blood Pressure : / mmHG Vent. Rate : 075 BPM Atrial Rate : 075 BPM P-R Int : 144 ms QRS Dur : 084 ms QT Int : 360 ms P-R-T Axes : 055 002 026 degrees QTc Int : 402 ms Normal sinus rhythm Normal ECG When compared with ECG of 06-OCT-2016 23:36, No significant change was found Referred By: Generic ED Physician Electronically Signed By:EVETTE JAMES MD
[2022-12-06 03:42] VITALS: BP 116/89; PULSE 85; RESP 18; TEMP 36.7; O2SAT 98
[2022-12-06 03:44] LABS: Glucose, Whole Blood 142 mg/dL (60-115)
[2022-12-06 04:03] LABS: Hemoglobin 12.5 g/dl (12.0-16.0); Mean Corpuscular HGB Conc 32.1 g/dl (31.0-35.0); Mean Corpuscular Hemoglobin 27.7 pg (27.0-33.0); Mean Corpuscular Volume 86.3 fL (80.0-98.0); Mean Platelet Volume 9.9 fL (9.4-12.3); Platelet Count 278 X10*3/uL (160-400); Red Blood Count 4.52 X10*6/uL (4.20-5.50); Red Cell Distribution Width 13.8 % (11.0-16.0); White Blood Count 9.6 X10*3/uL (4.8-10.8)
--- NOTE | 2022-12-06 04:06 | ED.DIZZY ---
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 She states she feels she cannot breathe she is crying. She denies drinking. MD elicited complaint: dizziness Pertinent past history: BPPV Onset (ago): hour(s) (couple) Timing: gradual onset Severity: moderate Description: room spinning Context: change in body position and anxiety History of similar symptoms: Yes Exacerbating factors: movement/ambulation Relieving factors: nothing Associated symptoms: shortness of breath Related Data Home Medications Medication Instructions Recorded Confirmed alprazolam 1 mg tablet 1 mg PO DAILY PRN Anxiety 11/19/19 04/27/22 cholecalciferol (vitamin D3) 25 25 mcg PO DAILY 01/06/20 04/27/22 mcg (1,000 unit) capsule lamotrigine 25 mg tablet 25 mg PO BID 09/08/20 04/27/22 Previous Rx's Medication Instructions Recorded acetaminophen 325 mg tablet 325 mg PO Q8-12H PRN pain #10 tabs 02/26/20 (Tylenol) bisacodyl 5 mg tablet,delayed 10 mg (2 x 5 mg) PO ONCE 07/07/20 release (Dulcolax (bisacodyl)) colonoscopy prep 1 day #2 tabs albuterol sulfate 90 mcg/actuation 2 puff inhalation Q6H PRN for 01/05/21 aerosol inhaler (ProAir HFA) wheezing #8.5 ea sumatriptan succinate 100 mg tablet 100 mg PO Q2-4H PRN migraine 07/15/22 headache #30 tabs cholecalciferol (vitamin D3) 50 50 mcg PO DAILY #90 tabs 09/12/22 mcg (2,000 unit) tablet Allergies Allergy/AdvReac Type Severity Reaction Status Date / Time buprenorphine [From SUBOXONE] Allergy Unknown UNKNOWN Verified 04/27/22 12:34 gabapentin [GABAPENTIN] Allergy Unknown VISION AND Verified 04/27/22 12:34 BALANCE AFFECTED naloxone [From SUBOXONE] Allergy Unknown UNKNOWN Verified 04/27/22 12:34 Butrans Allergy Unknown site Uncoded 04/27/22 12:34 redness/swelling Review of Systems Review of Systems: Constitutional : No Fever, No Chills, No Fatigue ENT/Mouth : No sore throat, No Rhinorrhea Eyes: No Eye Pain, No Swelling, No Redness Cardiovascular : No Chest Pain, pos SOB, No Dyspnea on Exertion Respiratory : No Cough, No Sputum Gastrointestinal : No Nausea, No Vomiting, No Diarrhea, No abdominal Pain Genitourinary : No Dysuria, No Urinary Frequency, No Hematuria, Musculoskeletal : No joint pain, No Myalgias, No Joint Swelling Skin : No Skin Lesions, No rash Neuro : No Weakness, No Numbness, pos Dizziness, no Headache Psych : No Anxiety/Panic, No Depression Heme/Lymph: No Bruising, No Bleeding,No Lymphadenopathy Endocrine : No Polyuria, No Polydipsia All other systems reviewed and are negative [facility] Past Medical History Attestation statement: The following information was validated with the patient. Source: old records reviewed Medical History Annual physical exam Normal Pap smear Migraine headache Asthma Depression History of cocaine abuse Arthritis Hx of concussion NAFLD (nonalcoholic fatty liver disease) Family history of colonic polyps Calcific tendonitis of right shoulder region Shoulder tendinitis Overdose Anxiety Premenopausal menorrhagia Acid reflux Chest pain Surgical History Hx of colonoscopy History of tubal ligation History of umbilical hernia repair History of shoulder surgery Family History Family History Mother HTN (hypertension) Anxiety Depression Sister Colon polyps Brother Colon polyps Substance use disorder Social History Social History Household Members: Children Housing: Apartment Alcohol intake: never Patient Tobacco Use Status: Former Tobacco user Quit Date: 2009 e-Cigarette/Vaping Use: Never Used Second Hand Smoke Exposure: Yes Advance Directives: No Advance Directives Information Provided: Yes Current occupational status: unemployed Cognitive needs: No Hearing needs: No Vision needs: No Physical Exam Vital Signs: Vital Signs: Last Vital Signs Temp 98.1 F 12/06/22 03:42 Pulse 85 12/06/22 03:42 Resp 18 12/06/22 03:42 BP 116/89 12/06/22 03:42 Pulse Ox 98 12/06/22 03:42 O2 Del Method Room Air 12/06/22 03:42 BMI result Body Mass Index 33.3 Appearance: Alert. Oriented X3. No acute distress. anxious intoxicated Eyes: Pupils equal, round and reactive to light. injected and tearful at times ENT: Pharynx normal. Neck: Normal inspection. Neck supple. CVS: Normal heart rate and rhythm. Pulses normal. Respiratory: No respiratory distress. Breath sounds normal. Abdomen: Soft and nontender. Skin: Skin warm and dry. Normal skin color. Normal skin turgor. Extremities: No lower extremity edema. No calf ttp Neuro: Oriented X 3. No motor deficit. No sensory deficit. Medical Decision Making Medical Decision Making MDM Narrative: 52 yo female with PMH of anxiety, dizziness, asthma, migraines, GERD here with anxiety, dizziness she appears under the influence she is very anxious - she states she took a brownie from someone I suspect it was laced with THC. At this time will obtain basic labs, EKG, drug screen and offer PO ativan. Differential Diagnosis Differential Diagnoses: The differential diagnosis associated with the presentation includes ingestion, intoxication Admission/Observation Consideration of admission/observation: Escalation of care including admission/observation considered can go home with sober ride - VS stable Lab Data [facility] Lab Attestation statement: I reviewed the patient's lab results. 12/06/22 03:56 12/06/22 03:56 Labs: Lab Results 12/06/22 12/06/22 12/06/22 Range/Units 03:35 03:56 04:46 WBC 9.6 (4.8-10.8) X10*3/uL RBC 4.52 (4.20-5.50) X10*6/uL Hgb 12.5 (12.0-16.0) g/dl Hct 39.0 (37.0-47.0) % MCV 86.3 (80.0-98.0) fL MCH 27.7 (27.0-33.0) pg MCHC 32.1 (31.0-35.0) g/dl RDW 13.8 (11.0-16.0) % Plt Count 278 (160-400) X10*3/uL MPV 9.9 (9.4-12.3) fL Absolute Nucleated RBC 0.000 (0.0-0.012) X10*3/uL Nucleated RBC % (auto) 0.0 (0.0-0.2) /100WBC Sodium 141 (135-145) mmol/L Potassium 3.4 (3.3-5.1) mmol/L Chloride 109 H (96-108) mmol/L Carbon Dioxide 21 L (22-29) mmol/L Anion Gap 14 (12-20) BUN 16 (9-16) mg/dL Creatinine 0.80 (0.5-1.4) mg/dL Estim Creat Clear Calc 82.8 Estimated GFR > 60 POC Glucose 142 H (60-115) mg/dL Random Glucose 138 H (60-115) mg/dL Calcium 9.4 (8.4-10.2) mg/dL Total Bilirubin 0.3 (0.0-1.0) mg/dL AST 20 (5-31) U/L ALT 13 (0-31) U/L Alkaline Phosphatase 83 (39-117) U/L Troponin I High Sens < 2.7 (<3.5-17.0) ng/L Total Protein 7.4 (6.5-8.0) g/dL Albumin 3.6 (3.5-5.0) g/dL Urine Opiates Screen Not Detected (Not Detect) Urine Fentanyl Screen Not Detected (Not Detect) Ur Barbiturates Screen Not Detected (Not Detect) Ur Phencyclidine Scrn Not Detected (Not Detect) Ur Amphetamines Screen Not Detected (Not Detect) U Benzodiazepines Scrn Not Detected (Not Detect) Urine Cocaine Screen Not Detected (Not Detect) U Marijuana (THC) Screen POSITIVE H (Not Detect) Ethyl Alcohol < 10 mg/dL Independent Interpretation I performed an independent interpretation of an: EKG Interpretation: Rate: 75 Rhythm: NSR [place]: normal Normal P waves. Normal [place]AT[place]. Normal QRS complex. ST T wave : normal no [place] qTC: normal prior studies: no acute ischemia The study has been interpreted contemporaneously by me. . External Record Review External record reviewed: Inpatient record Discharge Plan Discharge Clinical Impression: Anxiety Cannabis intoxication Qualifiers: Complication of substance-induced condition: with perceptual disturbance Qualified Code(s): F12.922 - Cannabis use, unspecified with intoxication with perceptual disturbance Patient Disposition: Home, Self-Care Instructions: Anxiety (ED), Cannabis Abuse (ED) Additional Instructions: go home rest, stay hydrated. do not drive or take a bath. this will wear off. just rest and sleep. you were given something that had marijuana in that is why you feel like this vete a casa descansa, mantente hidratado. no conduzca ni se ba?e. esto desaparecer?. simplemente descansa y duerme. te dieron algo que tenia marihuana por eso te sientes asi Prescriptions: No Action albuterol sulfate [ProAir HFA] 90 mcg/actuation HFA aerosol inhaler 2 puff inhalation Q6H PRN (Reason: for wheezing) Qty: 8.5 3RF sumatriptan succinate 100 mg tablet 100 mg PO Q2-4H PRN (Reason: migraine headache) Qty: 30 3RF Rx Instructions: do not exceed 2 doses per 24 hrs cholecalciferol (vitamin D3) 50 mcg (2,000 unit) tablet 50 mcg PO DAILY Qty: 90 1RF acetaminophen [Tylenol] 325 mg tablet 325 mg PO Q8-12H PRN (Reason: pain) Qty: 10 0RF alprazolam 1 mg tablet 1 mg PO DAILY PRN (Reason: Anxiety) lamotrigine 25 mg tablet 25 mg PO BID cholecalciferol (vitamin D3) 25 mcg (1,000 unit) capsule 25 mcg PO DAILY bisacodyl [Dulcolax (bisacodyl)] 5 mg tablet,delayed release (DR/EC) 10 mg PO ONCE 1 Days Qty: 2 0RF Rx Instructions: Take 2 tablets by mouth at 12:00pm the day before your procedure. Print Language: Yakut
[2022-12-06 04:22] LABS: Alanine Aminotransferase 13 U/L (0-31); Albumin Level 3.6 g/dL (3.5-5.0); Alkaline Phosphatase 83 U/L (39-117); Anion Gap 14 (12-20); Aspartate Amino Transferase 20 U/L (5-31); Bilirubin Total 0.3 mg/dL (0.0-1.0); Blood Urea Nitrogen 16 mg/dL (9-16); Calcium 9.4 mg/dL (8.4-10.2); Carbon Dioxide 21 mmol/L (22-29); Chloride 109 mmol/L (96-108); Creatinine Clr Calc Pharmacy 82.8; Estimated Glomerular Filt Rate > 60; Ethanol < 10 mg/dL; Glucose Random 138 mg/dL (60-115); Potassium 3.4 mmol/L (3.3-5.1); Sodium 141 mmol/L (135-145); Total Protein 7.4 g/dL (6.5-8.0)
[2022-12-06 04:24] LABS: Troponin-I High Sensitivity < 2.7 ng/L (<3.5-17.0)
[2022-12-06 04:58] LABS: Amphetamine Screen Urine Not Detected (Not Detect); Barbiturates, Urine Not Detected (Not Detect); Benzodiazepines Screen Urine Not Detected (Not Detect); Cannabinoid Screen Urine POSITIVE (Not Detect); Cocaine Screen Urine Not Detected (Not Detect); Fentanyl, urine Not Detected (Not Detect); Opiate Screen Urine Not Detected (Not Detect); Phencyclidine Screen Urine Not Detected (Not Detect)
--- NOTE | 2022-12-06 05:05 | PC.NURSE ---
Ativan not given, Dr. Frey approved.
[2022-12-06 05:13] VITALS: BP 132/78; PULSE 65; RESP 16; O2SAT 97
== END 2022-12-06 05:35 | disposition home or self-care (01) ==
PROVIDERS: Emergency Provider Emergency Medicine; PCP Internal Medicine
DX: F41.9 Anxiety disorder, unspecified (principal); F12.922 Cannabis use, unspecified with intoxication with perceptual disturbance; R42 Dizziness and giddiness; R06.02 Shortness of breath; K76.0 Fatty (change of) liver, not elsewhere classified; Z87.891 Personal history of nicotine dependence; Z79.899 Other long term (current) drug therapy
CPT/HCPCS: 36415; 80053; 80307; 82947; 84484; 85027; 93005; 99284

== ENCOUNTER 2023-01-17 10:41 | Outpatient (REF) | payer OTHER, SELFPAY ==
[2023-01-18 05:26] LABS: CT PCR NOT DETECTED (Not Detect.); NG PCR NOT DETECTED (Not Detect.)
[2023-01-18 12:22] LABS: BV Int Neg Control Negative (Negative); BV Int Pos Control Positive (Positive)
[2023-01-20 02:04] LABS: HPV mRNA E6/E7 rflx Not Detected (Not Detected)
== END 2023-01-17 10:42 | disposition home or self-care (01) ==
LOC: HO.LNP 10:41
PROVIDERS: PCP Internal Medicine; Visit Provider Advanced Practice Midwife
DX: Z01.419 Encounter for gynecological examination (general) (routine) without abnormal findings (principal); R10.2 Pelvic and perineal pain; N95.0 Postmenopausal bleeding; Z11.51 Encounter for screening for human papillomavirus (HPV); Z20.2 Contact with and (suspected) exposure to infections with a predominantly sexual mode of transmission; Z11.3 Encounter for screening for infections with a predominantly sexual mode of transmission
CPT/HCPCS: 0353U; 81003; 87480; 87510; 87624; 87660; 88142; 99396

== ENCOUNTER 2023-01-17 10:42 | Outpatient (AMB) | payer OTHER, SELFPAY ==
--- NOTE | 2023-01-17 10:47 | MHC.OFFVIS ---
Intake Vital Signs 01/17/23 10:48 Height 5 ft 2 in Weight 199 lb BMI 36.4 BP 116/72 Intake Visit Reasons: Annual/30 min Intake Note: having lower abdominal pain she is not sure if it's do to her stomach issues Digital Analyst Required: Yes Digital Analyst Language: Indonesian Information Interpreted: non-clinical & clinical Nursing Unit Coordinator: Nursing Unit Coordinator Present (Aidyn) Allergies buprenorphine [From SUBOXONE] Allergy (Unknown, Verified 01/17/23 10:53) UNKNOWN gabapentin [GABAPENTIN] Allergy (Unknown, Verified 01/17/23 10:53) VISION AND BALANCE AFFECTED naloxone [From SUBOXONE] Allergy (Unknown, Verified 01/17/23 10:53) UNKNOWN Butrans Allergy (Unknown, Uncoded 01/17/23 10:53) site redness/swelling Is last menstrual period known: No Post menopausal: Yes Patient : No HPI HPI Comments History of Present Illness Details 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 She is doing well with no concerns: LMP 3 years ago, then started bleeding sporadically x8 months. She denies any urinary symptoms and reports generalized lower pelvic pain. Attempting to eat a healthy diet with calcium and vitamin D and stays active with exercise. Currently not sexually active. Denies any vaginal dryness or irritation. Last pap smear; 2018, negative Last mammogram; 2020, not up-to-date. Colonoscopy is uncertain date. Denies any family history of breast, ovarian or colon cancer. [facility] Medical History Annual physical exam Normal Pap smear Migraine headache Asthma Depression History of cocaine abuse Arthritis Hx of concussion NAFLD (nonalcoholic fatty liver disease) Family history of colonic polyps Calcific tendonitis of right shoulder region Shoulder tendinitis Overdose Anxiety Premenopausal menorrhagia Acid reflux Chest pain Surgical History Hx of colonoscopy History of tubal ligation History of umbilical hernia repair History of shoulder surgery Family History Mother HTN (hypertension) Anxiety Depression Sister Colon polyps Brother Colon polyps Substance use disorder Social History Household Members: Children Housing: Apartment Alcohol intake: former Patient Tobacco Use Status: Former Tobacco user Quit Date: 2009 e-Cigarette/Vaping Use: Never Used Second Hand Smoke Exposure: Yes Current occupational status: unemployed Cognitive needs: No Hearing needs: No Vision needs: No Female Reproductive History Menstrual Age of Menarche: 13 control method: permanent sterilization Total pregnancies: 5 Full term: 4 Number of Living Children: 4 Ab induced: 1 Date of last pap smear: 09/11/19 (negative) Date of Mammogram: 10/28/20 Review of Systems Const All systems reviewed & are unremarkable except as noted in HPI and below Reports as per HPI Eyes Reports no additional complaints ENT Reports no additional complaints Card Reports no additional complaints Resp Reports no additional complaints GI Reports as per HPI and Reports no additional complaints Reports as per HPI Musc Reports no additional complaints Skin/Breast Reports as per HPI Neuro Reports no additional complaints Psych Reports no additional complaints Endo Reports no additional complaints Leonardo/Lymph Reports no additional complaints Aller/Immun Reports no additional complaints Physical Exam Vital Signs: Last Vital Signs BP 116/72 01/17/23 10:48 BMI result Body Mass Index 36.4 Const General: cooperative, healthy appearing, no acute distress, well developed and alert Orientation/consciousness: patient oriented x3 HEENT Head: Yes normal to inspection Eyes General: appearance normal, both eyes and all related structures Neck Neck: Yes normal visual inspection Thyroid: Thyroid normal Chest Chest palpation & inspection: normal inspection of the chest and other (no puckering, dimpling, peau de orange, retraction, discharge, masses) Breast/axilla inspection: normal inspection of the breasts Breast/axilla palpation: normal palpation of the breasts Resp Effort & Inspection: normal respiratory effort GI Inspection: Yes normal to inspection Palpation (GI): Soft to palpation Rectal Exam - Female: deferred Other: Diffusely tender lower pelvis General: Yes bladder normal to palpation External Female Exam: normal external appearance and normal appearance of the urethra Speculum Exam - Vagina: normal appearance of the vagina, normal palpation and normal vaginal discharge Speculum Exam - Cervix: normal appearance of the cervix and normal palpation Bimanual exam- vagina & uterus: normal bimanual exam, normal palpation, uterine size normal, bladder normal to palpation and normal palpation Bimanual Exam- Adnexa, other: no masses Skin General skin exam: no rashes or lesions noted Rashes: no rashes Neuro General: patient oriented x3 Cognition (Neuro): normal cognition Extrem General: Yes normal to inspection Psych Attitude: cooperative Thought process: Normal thought process present Results AMB Urinalysis, Automated UA Leukoctes 0 Yuki/uL Last Edit by NAVEED Pederson on 01/17/23 12:07 UA Nitrite Negative Last Edit by NAVEED Pederson on 01/17/23 12:07 UA Urobilinogen 0 mg/dL Last Edit by Saul Martin Krystle on 01/17/23 12:07 UA Protein 0 mg/dL Last Edit by Saul Martin Krystle on 01/17/23 12:07 UA pH 6 Last Edit by Saul Martin Krystle on 01/17/23 12:07 UA Blood 0 Ricardo/uL Last Edit by Saul Martin Krystle on 01/17/23 12:07 UA Specific [place] 1.015 Last Edit by NAVEED Pederson on 01/17/23 12:07 UA Ketone Negative Last Edit by NAVEED Pederson on 01/17/23 12:07 UA Bilirubin 0 mg/dL Last Edit by Saul Martin Krystle on 01/17/23 12:07 UA Glucose 0 mg/dL Last Edit by Saul Martin Krystle on 01/17/23 12:07 Results Reviewed Results Reviewed: Laboratory Last Values Urine pH (Auto) 6 01/17/23 12:03 Specific [place] (Auto) 1.015 01/17/23 12:03 Urine Protein (Auto) 0 mg/dL 01/17/23 12:03 Glucose (UA)(Auto) 0 mg/dL 01/17/23 12:03 Urine Ketones (Auto) Negative 01/17/23 12:03 Urine Blood (Auto) 0 Ricardo/uL 01/17/23 12:03 Urine Nitrite (Auto) Negative 01/17/23 12:03 Urine Bilirubin (Auto) 0 mg/dL 01/17/23 12:03 Urine Urobilinogen (Auto) 0 mg/dL 01/17/23 12:03 Leukocyte Esterase (Auto) 0 Yuki/uL 01/17/23 12:03 Assessment & Plan Assessment & Plan (1) Encounter for well woman exam with routine gynecological exam: Code(s): Z01.419 - Encounter for gynecological examination (general) (routine) without abnormal findings (2) Postmenopausal bleeding: Code(s): N95.0 - Postmenopausal bleeding Plan Discussed: Current recommendations for pap smears per ASCCP guidelines. Breast awareness, periodic self breast exams and yearly mammogram. Maintain a healthy lifestyle, well balanced diet including Calcium 1,200 mg and Vitamin D 600 IU daily, and routine exercise. Use of condoms for STI if indicated. Workup for postmenopausal bleeding including: Ultrasound, lab work, an endometrial biopsy to rule out any atypical cells precancer or cancer cells. Discussed pre procedure planning with having something to eat and drink and taking 3 ibuprofen 1 hour before the procedure. Appointment follow-up will be given. Schedule mammogram. Follow-up with PCP for colonoscopy planning. All of her questions and concerns were addressed to the best of my ability. 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 Orders: Orders AMB Urinalysis Automated Today R10.2 - Pelvic and perineal pain Pap Smear Today Z12.4 - Encounter for screening for malignant neoplasm of cervix US pelvic and transvaginal Today N95.0 - Postmenopausal bleeding MM tomosynthesis screening BI Today Z12.31 - Encounter for screening mammogram for malignant neoplasm of breast Bacterial Vaginosis Panel Today R10.2 - Pelvic and perineal pain CT NG by PCR Today R10.2 - Pelvic and perineal pain Coding Level of Care Code Est Pt Prev Care 40-64y(10686) Diagnoses Encounter for well woman exam with routine gynecological exam Z01.419 Postmenopausal bleeding N95.0
[2023-01-17 10:48] VITALS: BP 116/72; BMI 36.4
== END 2023-01-17 11:47 | disposition home or self-care (01) ==
PROVIDERS: PCP Internal Medicine; Visit Provider Advanced Practice Midwife
DX: Z01.419 Encounter for gynecological examination (general) (routine) without abnormal findings (principal); N95.0 Postmenopausal bleeding; R10.2 Pelvic and perineal pain
CPT/HCPCS: 99396

== ENCOUNTER 2023-02-20 11:00 | Outpatient (REF) | payer OTHER, SELFPAY ==
--- NOTE | ~2023-02-20 | MM_ITS ---
EXAMINATION: MM SCREENING DIGITAL BREAST TOMOSYNTHESIS, BILATERAL CLINICAL INFORMATION: Screening. Asymptomatic. COMPARISON: Mammography: This study is compared with prior exams dating back to 2020. TECHNIQUE: Digital breast tomosynthesis is performed in both the craniocaudal and mediolateral oblique views along with computer-aided detection (CAD). Synthesized 2D images are generated from the tomosynthesis. FINDINGS: There are scattered areas of fibroglandular density (ACR BI-RADS breast composition Category b). There are faint, grouped calcifications in the upper outer quadrant of the left breast for which additional mammographic imaging magnification is advised. There are also faint, grouped calcifications in the medial aspect of the left breast at a middle depth. These are not discernible in the MLO projection however, magnification imaging in the CC plane will be helpful and assist with triangulation. In the right breast, there are no significant masses, abnormal calcifications, or other abnormalities. MM/MM tomosynthesis screening BI IMPRESSION: 2 groups of faint calcification in the superior aspect of the left breast warrants additional mammographic imaging with magnification. ASSESSMENT: BI-RADS BI-RADS 0 - Incomplete: Needs additional Imaging. RECOMMENDATION: Additional views of the left breast Radiology department staff will contact the patient for additional imaging. Additional Imaging required This examination should not preclude the clinical evaluation of a suspicious palpable abnormality. This patient's information was entered into a reminder system with a target due date for their next mammogram.
--- NOTE | ~2023-02-20 | US_ITS ---
EXAMINATION: US PELVIS CLINICAL INFORMATION: Postmenopausal bleeding. COMPARISON: CT abdomen and pelvis from 08/17/2015. Pelvic ultrasound from 12/25/2012. TECHNIQUE: Ultrasound of the pelvis is performed using both transabdominal and transvaginal transducers along with Doppler. Transvaginal imaging is performed due to inadequate visualization transabdominally. FINDINGS: Uterus: The retroverted uterus measures approximately 6.5 x 3.8 x 4.1 cm (cervix to fundus x AP x transverse dimension). The myometrial echotexture is normal. No evidence of uterine leiomyoma. The endometrium has normal echotexture and measures 0.4 - 0.5 cm AP. No evidence of endometrial polyp or endometrial fluid. The cervix is unremarkable. Adnexa: The ovaries have normal echotexture. The right ovary is 1.7 x 1 x 1 cm and left ovary 2 x 0.9 x 1.6 cm. Small simple cyst within the left ovary measures up to 1.3 cm. No follow-up imaging recommended/required. Free fluid: None detected. US/US pelvic and transvaginal IMPRESSION: * The endometrium has a normal sonographic appearance; it measures up to 0.4 - 0.5 cm thickness. * No evidence of uterine mass. * Small simple cyst of the left ovary.
== END 2023-02-20 11:01 | disposition home or self-care (01) ==
LOC: HO.US 11:00
PROVIDERS: PCP Internal Medicine; Visit Provider Advanced Practice Midwife
DX: Z12.31 Encounter for screening mammogram for malignant neoplasm of breast (principal); N95.0 Postmenopausal bleeding
CPT/HCPCS: 76830; 76856; 77063; 77067

== ENCOUNTER → 2023-02-20 12:45 | Outpatient (BNV) | payer OTHER, SELFPAY | PROVIDERS: PCP Internal Medicine; Visit Provider Radiology Diagnostic Radiology | DX: Z12.31 Encounter for screening mammogram for malignant neoplasm of breast (principal) | CPT/HCPCS: 77063; 77067 ==

== ENCOUNTER 2023-03-06 14:19 | Outpatient (AMB) | payer OTHER, SELFPAY ==
[2023-03-06 14:29] VITALS: BP 110/74; PULSE 75; O2SAT 96; BMI 36.2
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
== END 2023-03-06 16:03 | disposition home or self-care (01) ==
PROVIDERS: PCP Internal Medicine; Visit Provider Internal Medicine
DX: M54.50 Low back pain, unspecified (principal); M79.18 Myalgia, other site; G89.29 Other chronic pain
CPT/HCPCS: 99213

== ENCOUNTER 2023-03-14 10:16 | Outpatient (REF) | payer OTHER, SELFPAY | END 2023-03-14 10:17 | disposition home or self-care (01) | LOC: HO.LNP 10:16 | PROVIDERS: PCP Internal Medicine; Visit Provider Advanced Practice Midwife | DX: N95.0 Postmenopausal bleeding (principal); N83.202 Unspecified ovarian cyst, left side; Z71.2 Person consulting for explanation of examination or test findings | CPT/HCPCS: 58100; 88305 ==

== ENCOUNTER 2023-03-14 10:16 | Outpatient (AMB) | payer OTHER, SELFPAY ==
--- NOTE | 2023-03-14 10:21 | A.OFFVIS_ITS ---
Intake Vital Signs 03/14/23 10:22 Height 5 ft 2 in Weight 198 lb BMI 36.2 BP 110/78 Intake Visit Reasons: U/S follow up/EMB/Chief Radiation Therapist Required: Yes Scientific Glass Blower Language: Chief Radiation Therapist Name: Annalise Information Interpreted: non-clinical & clinical Rate Analyst: Rate Analyst Present (Annalise) Allergies buprenorphine [From SUBOXONE] Allergy (Unknown, Verified 03/14/23 10:22) UNKNOWN gabapentin [GABAPENTIN] Allergy (Unknown, Verified 03/14/23 10:22) VISION AND BALANCE AFFECTED naloxone [From SUBOXONE] Allergy (Unknown, Verified 03/14/23 10:22) UNKNOWN Butrans Allergy (Unknown, Uncoded 03/06/23 14:32) site redness/swelling HPI HPI Comments History of Present Illness Details Patient is here for postmenopausal bleeding endometrial biopsy and ultrasound follow-up. She reports after being menopausal for over a year she started random bleeding for the last 8 months. [facility] Medical History Annual physical exam Normal Pap smear Migraine headache Asthma Depression History of cocaine abuse Arthritis Hx of concussion NAFLD (nonalcoholic fatty liver disease) Family history of colonic polyps Calcific tendonitis of right shoulder region Shoulder tendinitis Overdose Anxiety Premenopausal menorrhagia Acid reflux Chest pain Surgical History Hx of colonoscopy History of tubal ligation History of umbilical hernia repair History of shoulder surgery Family History Mother HTN (hypertension) Anxiety Depression Sister Colon polyps Brother Colon polyps Substance use disorder Social History Household Members: Children Housing: Apartment Alcohol intake: former Patient Tobacco Use Status: Former Tobacco user Quit Date: 2009 e-Cigarette/Vaping Use: Never Used Second Hand Smoke Exposure: Yes Current occupational status: unemployed Cognitive needs: No Hearing needs: No Vision needs: No Female Reproductive History Menstrual Age of Menarche: 13 Review of Systems Const All systems reviewed & are unremarkable except as noted in HPI and below Physical Exam Vital Signs: Last Vital Signs BP 110/78 03/14/23 10:22 BMI result Body Mass Index 36.2 Const General: cooperative, healthy appearing and no acute distress Orientation/consciousness: patient oriented x3 GI Inspection: Yes normal to inspection Palpation (GI): Soft to palpation and Other GI palpation findings present (Nontender) Rectal Exam - Female: visual inspection normal General: Yes bladder normal to palpation External Female Exam: normal appearance of the urethra Speculum Exam - Vagina: normal appearance of the vagina, normal palpation and normal vaginal discharge Speculum Exam - Cervix: normal appearance of the cervix and normal palpation Bimanual exam- vagina & uterus: normal bimanual exam, normal palpation, uterine size normal, bladder normal to palpation, normal palpation, uterine shape normal and non-tender Bimanual Exam- Adnexa, other: normal adnexae Neuro General: patient oriented x3 Office Procedures Endometrial Biopsy Details: The patient is here today for an endometrial biopsy due to PMB to rule out any pathology including atypical, hyperplasia or cancer cells of the uterus. She was counseled regarding anticipatory guidance for the procedure including the risks for pain, infection, bleeding, perforation, potential injury to the tissues may include the cervix, uterus, tubes, bladder and bowels. These injuries may include further treatment and evaluation including surgery, blood transfusions, antibiotics, hospitalizations and anesthesia. Permanent injury and scarring can occur. She was consented for the procedure, and the consent forms were signed. She is agreeable to have the procedure today. All questions were answered. Endometrial Biopsy Procedure: The patient was placed in the dorsal lithotomy position and a sterile speculum inserted. Using aseptic technique for the procedure. The cervix was cleansed with Betadine x 3 swabs. A single toothed tenaculum was placed on the cervix for stabilization and the uterus was sounded to 8 cm with a 4mm pipelle for 3 passes. Minimal bleeding was observed. The tissue sample was placed in formalin in a patient labeled container by staff assisting and sent to the pathology department for processing and interpr etation. The patient tolerate the procedure well and was in good condition when leaving the department. Endometrial Biopsy Post Procedure Care: Nothing in the vagina including: tampons, douching or intimacy until all the bleeding has subsided. There may be some post procedure bleeding for several days, this bleeding is usually light and may turn to a light brown or pink color. Mild cramps may oc curs. Nothing in the vaginal including: tampons, douching, or intimacy until all the bleeding has subsided. You may take an over the counter mild analgesic such as Tylenol or Advil (if no allergies) per the manufactures recommendation on dosing, frequency, and follow the directions completely. Call the office if any: fever (over 100.4), flu like symptoms, abdominal pain (worse than cramping), foul smelling, infected appearing vaginal discharge, or heavy bleeding. If indicated: Use condoms to prevent and STI's, and only after the bleeding has stopped completely. Return to the office in 2 weeks for results and plan of care. This note is constructed using voice recognition software. While every effort has been made to ensure accuracy, communications equipment operator errors may have been included. [id number] Biopsy Assessment & Plan Assessment & Plan (1) Ovarian cyst: Code(s): N83.209 - Unspecified ovarian cyst, unspecified side Qualifiers: Laterality: left Qualified Code(s): N83.202 - Unspecified ovarian cyst, left side (2) Postmenopausal bleeding: Code(s): N95.0 - Postmenopausal bleeding (3) Encounter to discuss test results: Code(s): Z71.2 - Person consulting for explanation of examination or test findings Plan Discussed: Simple cyst left side no indication to repeat follow-up. EMB results in person in 2 weeks. All of her questions and concerns were addressed to the best of my ability and shared decision making. She is agreeable to the plan of care. See procedure notes. This note is constructed using voice recognition software. While every effort has been made to ensure accuracy, communications equipment operator errors may have been included. Coding Level of Care Code Procedure Only Diagnoses Cyst of left ovary N83.202 Laterality: left Postmenopausal bleeding N95.0 Encounter to discuss test results Z71.2 CPT Codes Endometrial Biopsy - CPT: 30311-[id number] Biopsy ([id number])
[2023-03-14 10:22] VITALS: BP 110/78; BMI 36.2
== END 2023-03-14 12:28 | disposition home or self-care (01) ==
LOC: HO.HWS 10:16
PROVIDERS: PCP Internal Medicine; Visit Provider Advanced Practice Midwife
DX: N95.0 Postmenopausal bleeding (principal); N83.202 Unspecified ovarian cyst, left side; Z71.2 Person consulting for explanation of examination or test findings
CPT/HCPCS: 58100

== ENCOUNTER 2023-04-14 09:48 | Outpatient (AMB) | payer OTHER, SELFPAY ==
[2023-04-14 09:53] VITALS: BP 114/76; BMI 35.9
--- NOTE | 2023-04-14 09:53 | MHC.OFFVIS ---
Intake Vital Signs 04/14/23 09:53 Height 5 ft 2 in Weight 196 lb 3.382 oz BMI 35.9 BP 114/76 Intake Visit Reasons: EMB follow up/30 mins Product Info Specialist Required: Yes Product Info Specialist Language: Population Health Manager Name: Annalise LUCIO Information Interpreted: non-clinical & clinical Psych Coordinator: Psych Coordinator Present Accompanied by: Self / Same As Patient Allergies buprenorphine [From SUBOXONE] Allergy (Unknown, Verified 04/14/23 09:56) UNKNOWN gabapentin [GABAPENTIN] Allergy (Unknown, Verified 04/14/23 09:56) VISION AND BALANCE AFFECTED naloxone [From SUBOXONE] Allergy (Unknown, Verified 04/14/23 09:56) UNKNOWN Butrans Allergy (Unknown, Uncoded 04/14/23 09:56) site redness/swelling Is last menstrual period known: Yes Post menopausal: Yes HPI HPI Comments History of Present Illness Details Patient is here today for an endometrial biopsy results due to history of postmenopausal bleeding. She does not have any further bleeding episodes. She is wondering why she is having some abdominal pain. She has a history of GI issues and has a chief GI provider. [facility] Medical History Annual physical exam Normal Pap smear Migraine headache Asthma Depression History of cocaine abuse Arthritis Hx of concussion NAFLD (nonalcoholic fatty liver disease) Family history of colonic polyps Calcific tendonitis of right shoulder region Shoulder tendinitis Overdose Anxiety Premenopausal menorrhagia Acid reflux Chest pain Surgical History Hx of colonoscopy History of tubal ligation History of umbilical hernia repair History of shoulder surgery Family History Mother HTN (hypertension) Anxiety Depression Sister Colon polyps Brother Colon polyps Substance use disorder Social History Household Members: Children Housing: Apartment Alcohol intake: former Patient Tobacco Use Status: Former Tobacco user Quit Date: 2009 e-Cigarette/Vaping Use: Never Used Second Hand Smoke Exposure: Yes Current occupational status: unemployed Cognitive needs: No Hearing needs: No Vision needs: No Female Reproductive History Menstrual Age of Menarche: 13 Review of Systems Const All systems reviewed & are unremarkable except as noted in HPI and below Endo Reports no additional complaints Physical Exam Vital Signs: Last Vital Signs BP 114/76 04/14/23 09:53 BMI result Body Mass Index 35.9 Const General: cooperative, healthy appearing and no acute distress Psych Appearance: well kempt Attitude: cooperative Thought process: Normal thought process present Results Reviewed Results Reviewed: Name: Maribel Blanc Age/Sex: 52/F Attending: Allison Schroeder CNM : 1970 Submitted by: Allison Schroeder CNM Copies to: Yanet Dobbs MD MR #: [id number] Status: DEP REF Collected: 03/14/23 Location: [facility] Received: 03/14/23 Diagnosis Endometrium, biopsy: Strips of benign atrophic endometrium; no atypia or carcinoma. Clinical History PMB Microscopic Description Microscopic sections reviewed. Material Received EMB Gross Description Received in formalin labeled ?EMB? is a 1.2 x 0.8 x 0.4 cm aggregate of mucus, blood and multiple soft, congested and hemorrhagic red-maroon irregular tissue fragments, submitted in toto in a cassette labeled A. CEDS Copies To Yanet Dobbs MD [facility] [place] [address] Allison Schroeder [address] [place], [place] [id number] NOTE: Unless otherwise stated, all tissue is formalin-fixed and paraffin-embedded. Some or all of the immunohistochemical tests reported herein may have been developed and their performance characteristics determined by [facility]. They have not been cleared or approved by the U.S. Food and Drug Administration (FDA). However, the FDA has determined that such clearance or approval is not necessary. This laboratory is certified under the Clinical Laboratory Improvement Amendments of 1988 (CLIA) as qualified to perform high complexity clinical laboratory testing. Electronically Signed By: Rosaline Cortez 03/15/23 0188 Patient: Maribel Blanc Age/Sex: 52/F MR#: [id number] Page 1 of 1 Assessment & Plan Assessment & Plan (1) Encounter to discuss test results: Code(s): Z71.2 - Person consulting for explanation of examination or test findings (2) History of endometrial biopsy: Code(s): Z92.89 - Personal history of other medical treatment (3) Postmenopausal bleeding: Code(s): N95.0 - Postmenopausal bleeding Plan Discussed: Endometrial biopsy sampling is negative for atypia cancer. Reviewed pelvic ultrasound again which is normal. Previous cultures were all negative. I recommend that she follow up with her GI provider or and/or primary care for her abdominal pain. Advised if there is any further episodes of any postmenopausal bleeding she should call immediately for evaluation. Schedule annual exam for January 2024. All of her questions and concerns were addressed to the best of my ability and shared decision making. She is agreeable to the plan of care. This note is constructed using voice recognition software. While every effort has been made to ensure accuracy, flight kitchen manager errors may have been included. Coding Level of Care Code Est Pt Level 3 (95984) Diagnoses Encounter to discuss test results Z71.2 History of endometrial biopsy Z92.89 Postmenopausal bleeding N95.0
== END 2023-04-14 10:08 | disposition home or self-care (01) ==
LOC: HO.HWS 09:49
PROVIDERS: PCP Internal Medicine; Visit Provider Advanced Practice Midwife
DX: Z71.2 Person consulting for explanation of examination or test findings (principal); Z92.89 Personal history of other medical treatment; N95.0 Postmenopausal bleeding
CPT/HCPCS: 99213

== ENCOUNTER → 2023-04-14 09:48 | Outpatient (BNVA) | payer OTHER, SELFPAY | PROVIDERS: PCP Internal Medicine; Visit Provider Advanced Practice Midwife | DX: Z71.2 Person consulting for explanation of examination or test findings (principal); N95.0 Postmenopausal bleeding; Z92.89 Personal history of other medical treatment | CPT/HCPCS: 99212 ==

== ENCOUNTER 2023-05-15 13:40 | Outpatient (REF) | payer OTHER, SELFPAY ==
--- NOTE | ~2023-05-15 | MM_ITS ---
EXAMINATION: MM DIAGNOSTIC DIGITAL MAMMOGRAPHY, LEFT CLINICAL INFORMATION: Evaluate possible calcifications seen left breast upper outer quadrant , and possible grouping on medial CC projection. COMPARISON: Mammography: 02/20/2023, 10/28/2020. TECHNIQUE: Digital mammography is performed in the following views: 2-D spot compression left CC views x2, and left mediolateral view x1. FINDINGS: There are scattered areas of fibroglandular density (ACR BI-RADS breast composition Category b). There are 2 extremely subtle groups of calcifications in the lateral left breast, one just posterior and lateral to the nipple line, anterior depth, and the second upper outer, mid to posterior one third. Both of these groups of calcifications are strongly suggestive of vascular etiology given the appearance. There are other calcified vessels in the left breast laterally. The questionable calcifications seen in the medial left breast on the CC projection do not persist on the spot magnification view. There is no abnormal grouped in this region. MM/MM added views LT IMPRESSION: No suspicious findings suggestive of malignancy in the left breast. Calcifications seen are probably benign, most likely related to vascular etiology. Six-month interval follow-up recommended to ensure stability. ASSESSMENT: BI-RADS BI-RADS 3 - Probably benign finding(s) - 6 month follow-up suggested RECOMMENDATION: 6 Month F/U This patient's information was entered into a reminder system with a target due date for their next mammogram.
== END 2023-05-15 13:41 | disposition home or self-care (01) ==
LOC: HO.MAMMO 13:40
PROVIDERS: PCP Internal Medicine; Visit Provider Advanced Practice Midwife
DX: R92.1 Mammographic calcification found on diagnostic imaging of breast (principal)
CPT/HCPCS: 77065

== ENCOUNTER → 2023-05-15 14:00 | Outpatient (BNV) | payer OTHER, SELFPAY | PROVIDERS: PCP Internal Medicine; Visit Provider Radiology Diagnostic Radiology | DX: R92.1 Mammographic calcification found on diagnostic imaging of breast (principal) | CPT/HCPCS: 77065 ==

== ENCOUNTER 2023-06-14 00:06 | Emergency (ER) | payer OTHER, SELFPAY ==
--- NOTE | ~2023-06-14 | XR_ITS ---
EXAMINATION: XR FINGER, RIGHT CLINICAL INFORMATION: Right fourth digit pain. COMPARISON: Radiograph right wrist 04/08/2011. TECHNIQUE: Three views of the right ring finger. FINDINGS: No fracture or subluxation. Mild multifocal degenerative osteoarthritis. No osseous erosions. No unexpected radiopaque foreign bodies. No significant soft tissue abnormality. XR/XR finger RT min 2V IMPRESSION: 1. No acute fractures or subluxation. 2. Mild multifocal degenerative osteoarthritis.
[2023-06-14 00:09] VITALS: BP 141/75; PULSE 67; RESP 18; TEMP 36.3; O2SAT 98; BMI 37.1
== END 2023-06-14 05:55 | disposition left against medical advice (07) ==
PROVIDERS: Emergency Provider Emergency Medicine; PCP Internal Medicine
DX: M79.644 Pain in right finger(s) (principal)
CPT/HCPCS: 73140; 99281; 99283

== ENCOUNTER 2023-06-16 15:59 | Emergency (ER) | payer OTHER, SELFPAY ==
[2023-06-16 16:01] VITALS: BP 123/69; PULSE 86; RESP 18; TEMP 37; O2SAT 98; BMI 29.9
--- NOTE | 2023-06-16 16:03 | ED.GENADULT ---
HPI - General Adult General Chief complaint: Psychiatric Symptoms Stated complaint: Hypotensive/Hypoglycemic Time Seen by Provider: 06/16/23 16:10 Source: patient, old records reviewed and historic interpreter Mode of arrival: ambulatory Limitations: other (poor historian ) History of Present Illness HPI narrative: 53 yo female with PMH of myofascial pain, migraines, depression, NAFLD, states she has spent 4 days at [facility] about a year ago for mental health issues - here with very vague symptoms of severe depression due to event she will not disclose one week ago. She has not eaten. She thinks she would be better off . She states her therapist called because she was sending Netzoptiker messages but will not elaborate. She noted PD showed up at her house yesterday because her BP and sugar were low but then will not answer if she did something to hurt herself. She states she doesn't have to answer these questions and now just wants to go home. She is very vague and withdrawn. complaint: severe depression, thoughts of SI Onset (ago): week(s) (1) Radiation: non-radiation Severity: severe Exacerbating factors: other Associated symptoms: other (anorexia, SI, depression) Treatments prior to arrival: none Related Data Home Medications ?Medication ?Instructions ?Recorded ?Confirmed alprazolam 1 mg tablet 1 mg PO DAILY PRN Anxiety 11/19/19 06/16/23 lamotrigine 25 mg tablet 25 mg PO BID 09/08/20 06/16/23 Previous Rx's ?Medication ?Instructions ?Recorded sumatriptan succinate 100 mg tablet 100 mg PO Q2-4H PRN migraine 07/15/22 headache #30 tabs cholecalciferol (vitamin D3) 50 50 mcg PO DAILY #90 tabs 09/12/22 mcg (2,000 unit) tablet Ventolin HFA 90 mcg/actuation 2 puff inhalation Q6H PRN 06/14/23 aerosol inhaler (albuterol sulfate) shortness of breath or wheezing #18 grams Allergies Allergy/AdvReac Type Severity Reaction Status Date / Time buprenorphine [From SUBOXONE] Allergy Unknown UNKNOWN Verified 06/16/23 16:09 gabapentin [GABAPENTIN] Allergy Unknown VISION AND Verified 06/16/23 16:09 BALANCE AFFECTED naloxone [From SUBOXONE] Allergy Unknown UNKNOWN Verified 06/16/23 16:09 Butrans Allergy Unknown site Uncoded 06/14/23 00:10 redness/swelling Review of Systems Review of Systems: ROS unable to be obtained due to poor cooperation [facility] Past Medical History Attestation statement: The following information was validated with the patient. Source: old records reviewed Medical History Annual physical exam Normal Pap smear Migraine headache Asthma Depression History of cocaine abuse Arthritis Hx of concussion NAFLD (nonalcoholic fatty liver disease) Family history of colonic polyps Calcific tendonitis of right shoulder region Shoulder tendinitis Overdose Anxiety Premenopausal menorrhagia Acid reflux Chest pain Surgical History Hx of colonoscopy History of tubal ligation History of umbilical hernia repair History of shoulder surgery Family History Family History Mother HTN (hypertension) Anxiety Depression Sister Colon polyps Brother Colon polyps Substance use disorder Social History Social History Household Members: Children Housing: Apartment Alcohol intake: former Patient Tobacco Use Status: Former Tobacco user Quit Date: 2009 Smoked in Last 30 Days: No e-Cigarette/Vaping Use: Never Used Second Hand Smoke Exposure: Yes Use of substances other than those prescribed or required for medical reasons: No Advance Directives: No Advance Directives Information Provided: No Do you have a plan to hurt others: No Plan Patient : No Current occupational status: unemployed Cognitive needs: No Hearing needs: No Vision needs: No Physical Exam ED Vital Signs: Vital Signs - 24 hr 06/16/23 16:01 06/16/23 16:24 Temperature 98.6 F Pulse Rate 86 Respiratory Rate 18 16 Blood Pressure 123/69 Pulse Oximetry 98 Oxygen Delivery Method Room Air BMI result Body Mass Index 29.9 Appearance: Alert. Oriented X3. No acute distress. Flat withdrawn very vague Eyes: Pupils equal, round and reactive to light. ENT: Pharynx normal. Neck: Normal inspection. Neck supple. CVS: Normal heart rate and rhythm. Pulses normal. Respiratory: No respiratory distress. Breath sounds normal. Abdomen: Soft and nontender. Skin: Skin warm and dry. Normal skin color. Normal skin turgor. Extremities: No lower extremity edema. No calf ttp Neuro: Oriented X 3. No motor deficit. No sensory deficit. CN2-12 intact Course Course Course Narrative: This is a rapid medical exam performed by Margie Lewis NP: Additional HPI, ROS, PE not included below will be deferred to primary provider. Patient is a 53-year-old female presenting to the ED stating that yesterday her therapist called 911, and the police and paramedics came to her house, told her that her BP and blood glucose were low but she refused transport. When asked why her therapist called 911, patient replied that it's too much to explain. When asked if she is having thoughts of hurting herself, patient is refusing to respond. States that she was involuntarily committed in the past after overdose attempts. Refusing to answer whether she intentionally overdosed on any medications yesterday. Reports that one of her medications is prescribed as one pill but sometimes she takes 2 or 4. She complains of dizziness now. Decreased PO intake over past 2 days. BP normal in triage. Plan: EKG, labs, UA, urine drug screen Reevaluation(s) Reevaluation #1: observation care revealed that the patient does not meet psychiatric necessity for hospitalization. final disposition discussed with the patient. family here and are not concerned she has no SI and now is more forthcoming with CARE team. family is good support system she also has regular mental health providers. The patient completed observation care at 710pm. Total time in observation care was 3 hours. Medical Decision Making Medical Decision Making [facility] Narrative: 53 yo female with PMH of myofascial pain, migraines, depression, NAFLD, here with depression and then makes reference to SI but then will not elaborate and alludes to trying to harm herself this week - at this time labs, CARE team consult and given her statements I am placing her on S12 until she sees the CARE team. Differential Diagnosis Differential Diagnoses: The differential diagnosis associated with the presentation includes depression, SI Admission/Observation Consideration of admission/observation: Escalation of care including admission/observation considered physician observation started at 435pm pending CARE team placed on S12 given she made SI references then would no elaborate and wanted to leave Consult Healthcare Provider Management of the patient was discussed with: Behavioral Health Provider Lab Data [facility] Lab Attestation statement: I reviewed the patient's lab results. 06/16/23 17:14 06/16/23 17:14 Labs: Lab Results 06/16/23 06/16/23 Range/Units 16:53 17:14 WBC 8.5 (4.8-10.8) X10*3/uL RBC 4.57 (4.20-5.50) X10*6/uL Hgb 13.0 (12.0-16.0) g/dl Hct 40.9 (37.0-47.0) % MCV 89.5 (80.0-98.0) fL MCH 28.4 (27.0-33.0) pg MCHC 31.8 (31.0-35.0) g/dl RDW 13.4 (11.0-16.0) % Plt Count 268 (160-400) X10*3/uL MPV 10.0 (9.4-12.3) fL Immature Gran % (Auto) 0.2 (0.0-0.4) % Neut % (Auto) 57.7 (45-73) % Lymph % (Auto) 25.3 (20-40) % [place] % (Auto) 10.7 (2-11) % Eos % (Auto) 5.0 H (0-4) % Baso % (Auto) 1.1 (0-2) % Lymph # (Auto) 2.2 (1.2-4.9) X10*3/uL [place] # (Auto) 0.9 (0.1-1.2) X10*3/uL Eos # (Auto) 0.4 (0.0-0.4) X10*3/uL Baso # (Auto) 0.1 (0.0-0.2) X10*3/uL Abs Immat Gran (auto) 0.02 (0.00-0.03) X10*3/uL Absolute Neuts (auto) 4.9 (2.0-8.3) x10*3/uL Absolute Nucleated RBC 0.000 (0.0-0.012) X10*3/uL Nucleated RBC % (auto) 0.0 (0.0-0.2) /100WBC Sodium 143 (135-145) mmol/L Potassium 3.8 (3.3-5.1) mmol/L Chloride 108 (96-108) mmol/L Carbon Dioxide 26 (22-29) mmol/L Anion Gap 13 (12-20) BUN 13 (9-16) mg/dL Creatinine 0.78 (0.5-1.4) mg/dL Estim Creat Clear Calc 92.1 Estimated GFR > 60 Random Glucose 101 (60-115) mg/dL Calcium 9.4 (8.4-10.2) mg/dL Magnesium 1.9 (1.6-2.6) mg/dL Total Bilirubin 0.2 (0.0-1.0) mg/dL AST 15 (5-31) U/L ALT 10 (0-31) U/L Alkaline Phosphatase 89 (39-117) U/L Total Protein 7.6 (6.5-8.0) g/dL Albumin 3.6 (3.5-5.0) g/dL Beta HCG, Quant < 2 mIU/mL Urine Color Yellow Urine Appearance Cloudy Urine pH 7.0 (5.0-9.0) Ur Specific Joanna 1.015 (1.005-1.025) Urine Protein Negative (Neg-Trace) mg/dL Urine Glucose (UA) Negative (Negative) mg/dL Urine Ketones Negative (Negative) mg/dL Urine Blood Negative (Negative) Urine Nitrite Negative (Negative) Ur Leukocyte Esterase Trace H (Negative) Urine RBC 0-2 (0-2) /HPF Urine WBC 0-5 (0-5) /HPF Ur Squamous Epith Cells 3-5 (0-2) /HPF Urine Bacteria 4+ (None Seen) Hyaline Casts 0-2 (0-2) /LPF Salicylates < 5.0 L (15-30) mg/dL Urine Opiates Screen Not Detected (Not Detect) Ur Buprenorphine Scrn Not Detected (Not Detect) ng/mL Ur Oxycodone Screen Not Detected (Not Detect) ng/mL Urine Methadone Screen Not Detected (Not Detect) ng/mL Urine Fentanyl Screen Not Detected (Not Detect) Acetaminophen < 3 (<30) mcg/mL Ur Barbiturates Screen Not Detected (Not Detect) Ur Phencyclidine Scrn Not Detected (Not Detect) Ur Amphetamines Screen Not Detected (Not Detect) U Benzodiazepines Scrn POSITIVE H (Not Detect) Urine Cocaine Screen Not Detected (Not Detect) U Marijuana (THC) Screen Not Detected (Not Detect) Ethyl Alcohol < 10 mg/dL External Record Review External record reviewed: Inpatient record Discharge Plan Discharge Clinical Impression: Depression Qualifiers: Depression Type: unspecified Qualified Code(s): F32.A - Depression, unspecified Patient Disposition: Home, Self-Care Instructions: Depression (ED) Additional Instructions: follow up with your providers return for any thoughts of harm to yourself or others Prescriptions: No Action sumatriptan succinate 100 mg tablet 100 mg PO Q2-4H PRN (Reason: migraine headache) Qty: 30 3RF Rx Instructions: do not exceed 2 doses per 24 hrs cholecalciferol (vitamin D3) 50 mcg (2,000 unit) tablet 50 mcg PO DAILY Qty: 90 1RF albuterol sulfate [Ventolin HFA] 90 mcg/actuation HFA aerosol inhaler 2 puff inhalation Q6H PRN (Reason: shortness of breath or wheezing) Qty: 18 1RF alprazolam 1 mg tablet 1 mg PO DAILY PRN (Reason: Anxiety) lamotrigine 25 mg tablet 25 mg PO BID Interventions: [place]-Suicide Risk Severity Scale Last Done: 06/16/23 16:24 Print Language: Georgian
[2023-06-16 16:24] VITALS: RESP 16
[2023-06-16 17:18] LABS: MANUAL DIFF FLAG NO
[2023-06-16 17:24] LABS: Amphetamine Screen Urine Not Detected (Not Detect); Barbiturates, Urine Not Detected (Not Detect); Benzodiazepines Screen Urine POSITIVE (Not Detect); Buprenorphine Scr Not Detected (Not Detect); Cannabinoid Screen Urine Not Detected (Not Detect); Cocaine Screen Urine Not Detected (Not Detect); Fentanyl, urine Not Detected (Not Detect); Methadone Screen, Urine Not Detected (Not Detect); Opiate Screen Urine Not Detected (Not Detect); Oxycodone Screen Urine Not Detected (Not Detect); Phencyclidine Screen Urine Not Detected (Not Detect)
[2023-06-16 17:28] LABS: Basophils Absolute Auto 0.1 X10*3/uL (0.0-0.2); Basophils Percent Auto 1.1 % (0-2); Eosinophils Absolute Auto 0.4 X10*3/uL (0.0-0.4); Hematocrit 40.9 % (37.0-47.0); Imm Gran Abs Auto 0.02 X10*3/uL (0.00-0.03); Imm Gran Pct Auto 0.2 % (0.0-0.4); Lymphocytes Absolute Auto 2.2 X10*3/uL (1.2-4.9); Lymphocytes Percent Auto 25.3 % (20-40); Mean Corpuscular HGB Conc 31.8 g/dl (31.0-35.0); Mean Corpuscular Hemoglobin 28.4 pg (27.0-33.0); Mean Corpuscular Volume 89.5 fL (80.0-98.0); Monocytes Absolute Auto 0.9 X10*3/uL (0.1-1.2); Monocytes Percent Auto 10.7 % (2-11); Neutrophils Absolute Auto 4.9 x10*3/uL (2.0-8.3); Neutrophils Percent Auto 57.7 % (45-73); Platelet Count 268 X10*3/uL (160-400); Red Blood Count 4.57 X10*6/uL (4.20-5.50); Red Cell Distribution Width 13.4 % (11.0-16.0); White Blood Count 8.5 X10*3/uL (4.8-10.8)
[2023-06-16 17:36] LABS: Acetaminophen LAB < 3 mcg/mL (<30); Salicylate < 5.0 mg/dL (15-30)
[2023-06-16 17:37] LABS: Appearance Urine Cloudy; Color Urine Yellow; Glucose Urine UA Negative (Negative); Leukocyte Esterase Urine Trace (Negative); Nitrite Urine Negative (Negative); Specific Gravity - Urine 1.015 (1.005-1.025); UMIC TRIGGER UACC YES; Urine Blood Negative (Negative); Urine Ketones Negative (Negative); Urine Protein Negative (Neg-Trace)
[2023-06-16 17:42] LABS: Bacteria Urine 4+ (None Seen); Hyaline Casts Urine 0-2 /LPF (0-2); RBC Urine 0-2 /HPF (0-2); WBC Urine 0-5 /HPF (0-5)
[2023-06-16 17:42] LABS: Alanine Aminotransferase 10 U/L (0-31); Albumin Level 3.6 g/dL (3.5-5.0); Alkaline Phosphatase 89 U/L (39-117); Anion Gap 13 (12-20); Aspartate Amino Transferase 15 U/L (5-31); Bilirubin Total 0.2 mg/dL (0.0-1.0); Blood Urea Nitrogen 13 mg/dL (9-16); Calcium 9.4 mg/dL (8.4-10.2); Carbon Dioxide 26 mmol/L (22-29); Chloride 108 mmol/L (96-108); Creatinine Clr Calc Pharmacy 92.1; Estimated Glomerular Filt Rate > 60; Ethanol < 10 mg/dL; Glucose Random 101 mg/dL (60-115); HCG Quantitative < 2 mIU/mL; Magnesium 1.9 mg/dL (1.6-2.6); Potassium 3.8 mmol/L (3.3-5.1); Sodium 143 mmol/L (135-145); Total Protein 7.6 g/dL (6.5-8.0)
--- NOTE | 2023-06-16 19:01 | PC.NURSE ---
patient appears to remain at rest meeting with care team presently, appears in no distress.
[2023-06-16 19:17] VITALS: BP 118/76; PULSE 80; RESP 16; TEMP 36.9; O2SAT 97
== END 2023-06-16 19:22 | disposition home or self-care (01) ==
PROVIDERS: Registered Nurse Emergency; Emergency Provider Emergency Medicine; PCP Internal Medicine
DX: F33.1 Major depressive disorder, recurrent, moderate (principal); R45.851 Suicidal ideations; I95.9 Hypotension, unspecified; Z87.891 Personal history of nicotine dependence; Z79.899 Other long term (current) drug therapy
CPT/HCPCS: 36415; 80053; 80143; 80179; 80307; 81001; 83735; 84702; 85025; 99285; S9485

== ENCOUNTER 2023-08-22 10:02 | Outpatient (AMB) | payer OTHER, SELFPAY ==
[2023-08-22 10:06] VITALS: BMI 29.9
--- NOTE | 2023-08-22 10:06 | A.OFFVIS_ITS ---
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 Patient reports in the beginning of June she had injured her hand when her large dog pulled on the leash. She presented to [facility] where xrays ere taken and placed in a finger splint. Currently her pain is located at her PIP. Occasional numbness and tingling. 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 Name: Rikki ID#[id number] Allergies buprenorphine [From SUBOXONE] Allergy (Unknown, Verified 08/22/23 10:25) UNKNOWN gabapentin [GABAPENTIN] Allergy (Unknown, Verified 08/22/23 10:25) VISION AND BALANCE AFFECTED naloxone [From SUBOXONE] Allergy (Unknown, Verified 08/22/23 10:25) UNKNOWN Butrans Allergy (Unknown, Uncoded 08/22/23 10:25) site redness/swelling Medication List - Last Reconciled 08/22/23 by Casper Cui PA-C alprazolam 1 mg PO DAILY PRN cholecalciferol (vitamin D3) 50 mcg PO DAILY lamotrigine 25 mg PO BID sumatriptan succinate 100 mg PO Q2-4H PRN Ventolin HFA 90 mcg/actuation (albuterol sulfate) 2 puffs inhalation Q6H PRN NS HPI HPI 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 She was seen at [facility] where x-rays were performed and she was placed in a finger splint. She currently states she has pain at her PIP joint of 4th digit as well as occasional numbness and tingling. [facility] Medical History Annual physical exam Normal Pap smear Migraine headache Asthma Depression History of cocaine abuse Arthritis Hx of concussion NAFLD (nonalcoholic fatty liver disease) Family history of colonic polyps Calcific tendonitis of right shoulder region Shoulder tendinitis Overdose Anxiety Premenopausal menorrhagia Acid reflux Chest pain Surgical History Hx of colonoscopy History of tubal ligation History of umbilical hernia repair History of shoulder surgery Family History Mother HTN (hypertension) Anxiety Depression Sister Colon polyps Brother Colon polyps Substance use disorder Social History Household Members: Children Housing: Apartment Alcohol intake: former Patient Tobacco Use Status: Former Tobacco user e-Cigarette/Vaping Use: Never Used Second Hand Smoke Exposure: Yes Current occupational status: unemployed Cognitive needs: No Hearing needs: No Vision needs: No Female Reproductive History Menstrual Age of Menarche: 13 Review of Systems Const All systems reviewed & are unremarkable except as noted in HPI and below Physical Exam Vital Signs: BMI result Body Mass Index 29.9 Const General: cooperative, healthy appearing, comfortable, no acute distress, well developed and alert Orientation/consciousness: patient oriented x3 HEENT Head: Yes normal to inspection, Yes normocephalic and Yes atraumatic Eyes General: appearance normal, both eyes and all related structures Resp Effort & Inspection: normal respiratory effort and able to speak in complete sentences Cardio Rate: regular rate Peripheral pulses: Peripheral pulses 2+ throughout GI Palpation (GI): Soft to palpation Skin Lesions: no lesions Rashes: no rashes Neuro General: patient oriented x3 Extrem Other: Right ring finger: Normal to inspection. She has diffused swelling along the proximal aspect of her finger. She can fully extend. No extension lag, no flexion contracture noted. She has difficulty making a fist due to discomfort. NVI. Results Reviewed Results Reviewed: IMPRESSION: 1. No acute fractures or subluxation. 2. Mild multifocal degenerative osteoarthritis. Assessment & Plan Assessment & Plan (1) Sprain of right ring finger: Code(s): S63.614A - Unspecified sprain of right ring finger, initial encounter Category: Medical Plan I did reassure the patient that there is no bony or structural abnormalities. We did work on some ROM exercises in the office today. She will also begin a course of occupational therapy to work on aggressive ROM and credentialing assistant strengthening. I would like to see her back in 3 weeks for ROM check, sooner if needed. She can cancel the appointment if she is doing well otherwise. Orders: Orders OT Evaluation and Treatment Today S63.959Y - Unspecified sprain of right ring finger, initial encounter Patient Instructions: Scribed for Casper Cui PA-C, by Hans Nobles medical microbiologist, on 08/22/2023 at 10:00 AM EST.? I, Casper Cui PA-C, have personally reviewed and agree with the information entered by the scribe. Coding Level of Care Code New Pt Level 3 (88454) Diagnoses Sprain of right ring finger S63.744Q
== END 2023-08-22 11:05 | disposition home or self-care (01) ==
PROVIDERS: PCP Internal Medicine; Visit Provider Physician Assistant
DX: S63.614A Unspecified sprain of right ring finger, initial encounter (principal)
CPT/HCPCS: 99203

== ENCOUNTER → 2023-08-22 10:02 | Outpatient (BNVA) | payer OTHER, SELFPAY | PROVIDERS: PCP Internal Medicine; Visit Provider Physician Assistant | DX: S63.614A Unspecified sprain of right ring finger, initial encounter (principal) | CPT/HCPCS: 99202 ==

== ENCOUNTER 2023-10-05 12:32 | Outpatient (AMB) | payer OTHER, SELFPAY ==
[2023-10-05 12:36] VITALS: BP 100/70; PULSE 62; O2SAT 95; BMI 32.0
--- NOTE | 2023-10-05 12:36 | A.OFFPC_ITS ---
Vital Signs 10/05/23 12:36 Height 5 ft 6 in Weight 198 lb BMI 32.0 BP 100/70 Blood Pressure Location Lt brachial Position Sitting Pulse 62 Pulse Source Pulse Oximeter Pulse Oximetry (%) 95 Oxygen Delivery Method Room Air Intake Visit Reasons: ANNUAL PE- see comments Intake Note: Pt is here today for her PE Allergies buprenorphine [From SUBOXONE] Allergy (Unknown, Verified 10/05/23 12:38) UNKNOWN gabapentin [GABAPENTIN] Allergy (Unknown, Verified 10/05/23 12:38) VISION AND BALANCE AFFECTED naloxone [From SUBOXONE] Allergy (Unknown, Verified 10/05/23 12:38) UNKNOWN Butrans Allergy (Unknown, Uncoded 10/05/23 12:38) site redness/swelling Medication List - Last Reconciled 10/05/23 by Yanet Dobbs MD alprazolam 1 mg PO DAILY PRN cholecalciferol (vitamin D3) 50 mcg PO DAILY lamotrigine 25 mg PO BID sumatriptan succinate 100 mg PO Q2-4H PRN Ventolin HFA 90 mcg/actuation (albuterol sulfate) 2 puffs inhalation Q6H PRN NS Tobacco use date assessed: 10/05/23 Dental Screening Dental Screen Date: 10/05/23 Did you have a dental visit in the last 12 months?: No Did you have a dental problem in the last 6 months where you did not have access to dental care?: No Was dental information given to patient?: Patient has dentist HPI ANNUAL PE- see comments HPI Details Pt presents for PE. FORMERLY [facility] Medical History Annual physical exam Normal Pap smear Migraine headache Asthma Depression History of cocaine abuse Arthritis Hx of concussion NAFLD (nonalcoholic fatty liver disease) Family history of colonic polyps Calcific tendonitis of right shoulder region Shoulder tendinitis Overdose Anxiety Premenopausal menorrhagia Acid reflux Chest pain Surgical History Hx of colonoscopy History of tubal ligation History of umbilical hernia repair History of shoulder surgery Family History Mother HTN (hypertension) Anxiety Depression Sister Colon polyps Brother Colon polyps Substance use disorder Social History Household Members: Children Housing: Apartment Alcohol intake: former Patient Tobacco Use Status: Former Tobacco user e-Cigarette/Vaping Use: Never Used Second Hand Smoke Exposure: Yes Current occupational status: unemployed Cognitive needs: No Hearing needs: No Vision needs: No Female Reproductive History Menstrual Age of Menarche: 13 Questionnaire Thrive Questionnaire Date Thrive assessed: 10/05/23 I am a: Patient What is your living situation today?: I have a steady place to live Within the past 12 months, did the food you bought not last and you didn't have the money to get more?: Never true Within the past 12 months, did you worry whether your food would run out before you got money to buy more?: Never true Do you have trouble paying for medicines?: No Do you have trouble getting transportation to medical appointments?: No Do you have trouble paying your heating and electricity bill?: Yes Do you have trouble taking care of your child, family member or friend?: No Do you have trouble with day-to-day activities such as bathing, preparing meals, shopping, managing finances, etc.?: I choose not to answer this question Are you currently unemployed and looking for a job?: I choose not to answer this question Are you interested in more education?: I choose not to answer this question Please select the resources that you would like help with: None Currently or been in a relationship where the following occur: I choose not to answer THRIVE Score: 1 AUDIT C Alcohol Use Questionnaire (AUDIT-C) 1. How often do you have a drink containing alcohol?: Never Total Score: 0 AUSTYN-7 AMB Questionnaire AUSTYN-7 Date AUSTYN - 7 assessed: 10/05/23 Feeling nervous, anxious, or on edge: 0 = Not at all Not being able to stop or control worryin = Not at all Worrying too much about different things: 0 = Not at all Trouble relaxin = Not at all Being so restless that it is hard to sit still: 0 = Not at all Becoming easily annoyed or irritable: 0 = Not at all Feeling afraid as if something awful might happen: 0 = Not at all Total AUSTYN-7 score (0-4 normal; 5-9 mild; 10-14 moderate; 15-21 severe): 0 Source: Developed by Elissa WilsonW. Juan Alberto, Alex Kong and colleagues, with an educational soni from [employer]. Review of Systems Const All systems reviewed & are unremarkable except as noted in HPI and below Eyes Reports no additional complaints ENT Reports no additional complaints Card Reports no additional complaints Resp Reports no additional complaints GI Reports no additional complaints Reports no additional complaints Physical exam (Primary Care) Vital Signs: Last Vital Signs Pulse 62 10/05/23 12:36 BP 100/70 10/05/23 12:36 Pulse Ox 95 10/05/23 12:36 Oxygen Delivery Method Room Air 10/05/23 12:36 BMI result Body Mass Index 32.0 Tobacco/Smoking Status: Tobacco use Status Tobacco use date assessed 10/05/23 10/05/23 12:41 Patient Tobacco Use Status Former Tobacco user 10/05/23 12:37 e-Cigarette/Vaping Use Never Used 10/05/23 12:37 Thrive Assessment: Date of Thrive Assessment Date Thrive assessed 10/05/23 10/05/23 12:41 Currently or been in a relationship where the following occur: I choose not to answer Const General: no acute distress HENMT Head: Yes normal to inspection Ears: hearing grossly normal bilaterally General nose exam: Normal external nose present Face and sinus: Yes normal facial exam Eyes General: appearance normal, both eyes and all related structures Neck Neck: Yes no lymphadenopathy and Yes supple Resp Effort & Inspection: normal respiratory effort Auscultation: clear to auscultation bilaterally Cardio Rhythm: regular rhythm Heart sounds: S1 normal heart sound present and S2 normal heart sound present GI Inspection: Yes normal to inspection Palpation (GI): Soft to palpation Percussion: Yes normal to percussion Auscultation: normal bowel sounds Assessment and Plan Assessment & Plan (1) Abnormal colonoscopy: Comment: family history colon polyps, poor prep colonoscopy 2020, repeat in 6 months recommended Code(s): R93.3 - Abnormal findings on diagnostic imaging of other parts of digestive tract Plan: refer to GI (2) Annual physical exam: Code(s): Z00.00 - Encounter for general adult medical examination without abnormal findings Plan: well balanced diet, regular exercise, weight loss discussed. (3) Hyperglycemia: Code(s): R73.9 - Hyperglycemia, unspecified Plan: ADA diet, weight loss discussed, check A1C Orders: Orders Complete Blood Count Auto Diff Today K76.0 - Fatty (change of) liver, not elsewhere classified, R73.9 - Hyperglycemia, unspecified, Z00.00 - Encounter for general adult medical examination without abnormal findings UA w Microscopic Today K76.0 - Fatty (change of) liver, not elsewhere classified, R73.9 - Hyperglycemia, unspecified, Z00.00 - Encounter for general adult medical examination without abnormal findings Hemoglobin A1c Today K76.0 - Fatty (change of) liver, not elsewhere classified, R73.9 - Hyperglycemia, unspecified, Z00.00 - Encounter for general adult medical examination without abnormal findings Comprehensive [place]. Panel Fast Today K76.0 - Fatty (change of) liver, not elsewhere classified, R73.9 - Hyperglycemia, unspecified, Z00.00 - Encounter for general adult medical examination without abnormal findings Lipid Panel Today K76.0 - Fatty (change of) liver, not elsewhere classified, R73.9 - Hyperglycemia, unspecified, Z00.00 - Encounter for general adult medical examination without abnormal findings TSH reflex Free T4 Today K76.0 - Fatty (change of) liver, not elsewhere classified, R73.9 - Hyperglycemia, unspecified, Z00.00 - Encounter for general adult medical examination without abnormal findings Referrals Gastroenterology Referral R93.3 - Abnormal findings on diagnostic imaging of other parts of digestive tract Coding Level of Care Code Est Pt Prev Care 40-64y(83017) Diagnoses Abnormal colonoscopy R93.3 Annual physical exam Z00.00 Hyperglycemia R73.9
== END 2023-10-05 13:18 | disposition home or self-care (01) ==
PROVIDERS: PCP Internal Medicine; Visit Provider Internal Medicine
DX: R93.3 Abnormal findings on diagnostic imaging of other parts of digestive tract (principal); Z00.00 Encounter for general adult medical examination without abnormal findings; R73.9 Hyperglycemia, unspecified
CPT/HCPCS: 99396

== ENCOUNTER 2023-10-19 08:40 | Outpatient (REF) | payer OTHER, SELFPAY ==
[2023-10-19 10:05] LABS: MANUAL DIFF FLAG NO
[2023-10-19 10:09] LABS: Appearance Urine Clear; Color Urine Yellow; Glucose Urine UA Negative (Negative); Leukocyte Esterase Urine Trace (Negative); Nitrite Urine Negative (Negative); PH 6.5 (5.0-9.0); UMIC TRIGGER UA YES; Urine Blood Negative (Negative); Urine Ketones Negative (Negative); Urine Protein Negative (Neg-Trace)
[2023-10-19 10:12] LABS: Bacteria Urine 4+ (None Seen); Hyaline Casts Urine 0-2 /LPF (0-2); RBC Urine 0-2 /HPF (0-2); WBC Urine 0-5 /HPF (0-5)
[2023-10-19 10:42] LABS: Alanine Aminotransferase 11 U/L (0-31); Albumin Level 3.5 g/dL (3.5-5.0); Alkaline Phosphatase 87 U/L (39-117); Anion Gap 10 (12-20); Aspartate Amino Transferase 18 U/L (5-31); Bilirubin Total 0.4 mg/dL (0.0-1.0); Blood Urea Nitrogen 8 mg/dL (9-16); Carbon Dioxide 25 mmol/L (22-29); Chloride 110 mmol/L (96-108); Cholesterol 185 mg/dL (<200); Estimated Glomerular Filt Rate > 60; Glucose Fasting 120 mg/dL (60-99); HDL Cholesterol 48 mg/dL (>40); LDL Cholesterol Calculated 125 mg/dL (<100); Potassium 3.6 mmol/L (3.3-5.1); Sodium 141 mmol/L (135-145); Total Protein 7.3 g/dL (6.5-8.0); Triglycerides 61 mg/dL (<150)
[2023-10-19 10:43] LABS: Basophils Absolute Auto 0.1 X10*3/uL (0.0-0.2); Basophils Percent Auto 1.3 % (0-2); Eosinophils Absolute Auto 0.5 X10*3/uL (0.0-0.4); Hematocrit 39.7 % (37.0-47.0); Hemoglobin 12.6 g/dl (12.0-16.0); Imm Gran Abs Auto 0.02 X10*3/uL (0.00-0.03); Imm Gran Pct Auto 0.3 % (0.0-0.4); Mean Corpuscular HGB Conc 31.7 g/dl (31.0-35.0); Mean Corpuscular Hemoglobin 28.4 pg (27.0-33.0); Mean Corpuscular Volume 89.6 fL (80.0-98.0); Mean Platelet Volume 10.6 fL (9.4-12.3); Monocytes Absolute Auto 0.6 X10*3/uL (0.1-1.2); Monocytes Percent Auto 9.7 % (2-11); Neutrophils Absolute Auto 3.2 x10*3/uL (2.0-8.3); Neutrophils Percent Auto 50.7 % (45-73); Platelet Count 287 X10*3/uL (160-400); Red Blood Count 4.43 X10*6/uL (4.20-5.50); Red Cell Distribution Width 13.6 % (11.0-16.0); White Blood Count 6.4 X10*3/uL (4.8-10.8)
[2023-10-19 10:50] LABS: Estimated Average Glucose 111 mg/dL; Hemoglobin A1c % 5.5 % (<6.0)
[2023-10-19 10:59] LABS: TSH reflex Free T4 2.88 uIU/mL (0.32-4.0)
== END 2023-10-19 08:41 | disposition home or self-care (01) ==
LOC: HO.HMGCLDS 08:40
PROVIDERS: PCP Internal Medicine; Visit Provider Internal Medicine
DX: Z00.00 Encounter for general adult medical examination without abnormal findings (principal); K76.0 Fatty (change of) liver, not elsewhere classified; R73.9 Hyperglycemia, unspecified
CPT/HCPCS: 36415; 80053; 80061; 81001; 83036; 84443; 85025

== ENCOUNTER 2023-10-25 14:18 | Outpatient (AMB) | payer OTHER, SELFPAY ==
[2023-10-25 14:27] VITALS: BP 116/74; PULSE 75; TEMP 36.8; O2SAT 98; BMI 32.1
--- NOTE | 2023-10-25 14:27 | MHC.OFFWIV ---
Intake Vital Signs 10/25/23 14:27 Height 5 ft 6 in Weight 199 lb BMI 32.1 BP 116/74 Blood Pressure Location Lt brachial Position Sitting Pulse 75 Pulse Source Pulse Oximeter Temp 98.2 F Temp Source Oral Pulse Oximetry (%) 98 Oxygen Delivery Method Room Air Intake Visit Reasons: EP itching all over body Intake Note: pt c/o itching all over body. Started 3 days ago Skin tearing when scratching Patient Tobacco Use Status: Former Tobacco user Allergies buprenorphine [From SUBOXONE] Allergy (Unknown, Verified 10/25/23 14:31) UNKNOWN gabapentin [GABAPENTIN] Allergy (Unknown, Verified 10/25/23 14:31) VISION AND BALANCE AFFECTED naloxone [From SUBOXONE] Allergy (Unknown, Verified 10/25/23 14:31) UNKNOWN Butrans Allergy (Unknown, Uncoded 10/25/23 14:31) site redness/swelling Do you need a note to return to daycare/school/sports/work: No HPI EP itching all over body HPI Details This note is constructed using voice recognition software. While every effort has been made to ensure accuracy, hand alterations seamstress errors may have been included. Visit completed with use of fmd teacher through audio only option. The patient is a 53 year old female who presents to the clinic today with pruritis for the past 3 days. She denies any new soaps, lotions, detergents, foods. 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 She does not have any current rashes, but notes that the areas start with small red bumps and they are itchy and then she itches and itch seems to spread. She has no fever no chills no cough no shortness a breath no other associated symptoms. She has no history of any skin disorders. She typically does not hydrate well reportedly, and has limited application of any lotions. She has tried cortisone topical on the small bumps and this does not seem to improve it. Nothing seems to make it worse. [facility]LY [facility] Medical History Annual physical exam Normal Pap smear Migraine headache Asthma Depression History of cocaine abuse Arthritis Hx of concussion NAFLD (nonalcoholic fatty liver disease) Family history of colonic polyps Calcific tendonitis of right shoulder region Shoulder tendinitis Overdose Anxiety Premenopausal menorrhagia Acid reflux Chest pain Surgical History Hx of colonoscopy History of tubal ligation History of umbilical hernia repair History of shoulder surgery Family History Mother HTN (hypertension) Anxiety Depression Sister Colon polyps Brother Colon polyps Substance use disorder Social History Household Members: Children Housing: Apartment Alcohol intake: former Patient Tobacco Use Status: Former Tobacco user e-Cigarette/Vaping Use: Never Used Second Hand Smoke Exposure: Yes Current occupational status: unemployed Cognitive needs: No Hearing needs: No Vision needs: No Female Reproductive History Menstrual Age of Menarche: 13 Review of Systems Const All systems reviewed & are unremarkable except as noted in HPI and below Physical Exam Vital Signs: Last Vital Signs Temp 98.2 F 10/25/23 14:27 Pulse 75 10/25/23 14:27 BP 116/74 10/25/23 14:27 Pulse Ox 98 10/25/23 14:27 Oxygen Delivery Method Room Air 10/25/23 14:27 BMI result Body Mass Index 32.1 Const General: cooperative, healthy appearing, comfortable, no acute distress and well developed Orientation/consciousness: patient oriented x3 Limitations: no limitations Resp Effort & Inspection: normal respiratory effort and able to speak in complete sentences Skin Other: Dry skin throughout with small areas of excoriation to bilateral arms. No obvious rash present. No jaundice present. Neuro General: patient oriented x3 Assessment & Plan Assessment & Plan (1) Dermatitis: Code(s): L30.9 - Dermatitis, unspecified Plan: Etiology unclear, may be manifestation of seasonal allergies versus dermatitis, versus some sort of change of chemical that she uses that she is unaware of. advised patient to increase hydration. We will try some hydroxyzine as needed to help with the itch. Additionally we will try prednisone for dermatitis to help reduce symptoms. Advised patient to follow up with primary care provider should she continue had symptoms or have any worsening. (2) Itchy skin: Code(s): L29.9 - Pruritus, unspecified Plan: Etiology unclear, advised patient to increase hydration. We will try some hydroxyzine as needed to help with the itch. Additionally we will try prednisone for dermatitis to help reduce symptoms. Advised patient to follow up with primary care provider should she continue had symptoms or have any worsening. Medications: New prednisone 40 mg (2 x 20 mg) PO DAILY 3 days 6 tabs 0RF hydroxyzine HCl 10 mg PO TID 5 days PRN 15 tabs 0RF itching Coding Level of Care Code Est Pt Level 3 (98991) Diagnoses Dermatitis L30.9 Itchy skin L29.9
== END 2023-10-25 15:27 | disposition home or self-care (01) ==
PROVIDERS: PCP Internal Medicine; Visit Provider Registered Nurse
DX: L30.9 Dermatitis, unspecified (principal); L29.9 Pruritus, unspecified

== ENCOUNTER → 2023-10-25 14:18 | Outpatient (BNVA) | payer OTHER, SELFPAY | PROVIDERS: PCP Internal Medicine | DX: L30.9 Dermatitis, unspecified (principal); L29.9 Pruritus, unspecified | CPT/HCPCS: 99212 ==

== ENCOUNTER 2024-02-09 12:34 | Outpatient (AMB) | payer OTHER, SELFPAY ==
--- NOTE | 2024-02-09 12:40 | A.OFFVIS_ITS ---
Vital Signs 02/09/24 12:41 Height 5 ft 6 in Weight 200 lb 9.93 oz BMI 32.4 BP 135/81 Blood Pressure Location Lt brachial Position Sitting Pulse 64 Intake Visit Reasons: Colonoscopy Screening Intake Note: Maribel presents to office as a new patient for colonoscopy screening. CC: Patient c/o constipation, and occasional heartburn because she consumes a lot of lemon. She states that she has a fatty liver. Segment Block Layer Required: Yes Accompanied by: Self / Same As Patient Allergies buprenorphine [From SUBOXONE] Allergy (Unknown, Verified 02/09/24 12:52) UNKNOWN gabapentin [GABAPENTIN] Allergy (Unknown, Verified 02/09/24 12:52) VISION AND BALANCE AFFECTED naloxone [From SUBOXONE] Allergy (Unknown, Verified 02/09/24 12:52) UNKNOWN Butrans Allergy (Unknown, Uncoded 10/25/23 14:31) site redness/swelling HPI HPI Colonoscopy Screening: Details: 53-year-old female here for preprocedural meeting to discuss a screening colonoscopy. She is referred by Yanet Dobbs. PMX Asthma Overweight Fatty liver Migraines Vertigo Chronic myofascial pain Family history of colon polyps GERD Depression with anxiety History of cocaine abuse * SURGICAL HISTORY Colonoscopy-2012 pleat Tubal ligation Umbilical hernia repair History of shoulder surgery * ALLERGIES BUPRENORPHINE GABAPENTIN BUTRANS * [employer] LABS: Laboratory Tests 10/19/23 08:51 WBC 6.4 Hgb 12.6 Hct 39.7 Plt Count 287 Estimated GFR > 60 Total Bilirubin 0.4 AST 18 ALT 11 Alkaline Phosphatase 87 TSH 2.88 TODAY'S VISIT [facility] The patient was seen in the past by Taylor Her but this is my 1st contact with the patient. She had a prior EGD/colonoscopy with Dr. Rubio, she is saying she needs an EGD because of my liver. This is NOT a truth, but with further discussion she says I have abdominal pain. She also had a repeat in [address] Singh with poor prep (she ate the day before) and erosive gastritis. She says her pain is crampy and will occur either in the LUQ or RUQ. It will double her over when it happens, it happens about 4 times a week. She does not move her bowels every day and only move her bowels q 3 days. They vary from hard to soft depending on her coffee intake. She drinks 8 or more cups of coffee a day. She was unaware of her erosive gastritis, and was never on any PPI therapy. Given her very high coffee consumption and her hx I will start her on omeprazole 40mg. Since the path of her pain seems to follow the path of the colon and she suffers CIC It hink this is the actual cause of her pain. Will trial Linzess 72mcg. She was unaware of the results of her last blood work ordered by her PCP, and she asks me to review this. I do and advise her that she may be developing diabetes, as she claims she WAS fasting before the tests. I will get an A1C to help - this could be important to her liver health. She was very concerned about her fatty liver, being monitored by her PCP. She was educated about PARHAM and that slow steady wt loss, avoidance of ETOH, and sugar control. Her transamiases are not elevated, so this was likely an imaging finding. She asks about GOUT as she has more knee pain when she drinks milk. I print her a gout diet list in [place] from [facility] for her. She denies any cardiac problems but she says she has Asthma and has a pump. NO ID problems There are no prior problems with anesthesia or sedation. Mother and brothers have colon polyps. Next available [facility] Medical History (Updated 02/09/24 @ 18:01 by JARRET Travis) Acid reflux Chest pain Shoulder tendinitis Family history of colonic polyps Abdominal pain Referral of patient Normal Pap smear Annual physical exam Well woman exam Left knee pain COVID-19 Skin candidiasis Right knee pain Myofascial low back pain Sprain of right ring finger Migraine headache Asthma Depression History of cocaine abuse Arthritis Hx of concussion NAFLD (nonalcoholic fatty liver disease) Calcific tendonitis of right shoulder region Overdose Anxiety Premenopausal menorrhagia Surgical History Hx of colonoscopy History of tubal ligation History of umbilical hernia repair History of shoulder surgery Family History Mother HTN (hypertension) Anxiety Depression Sister Colon polyps Brother Colon polyps Substance use disorder Social History Household Members: Children Housing: Apartment Alcohol intake: former Patient Tobacco Use Status: Former Tobacco user e-Cigarette/Vaping Use: Never Used Second Hand Smoke Exposure: Yes Current occupational status: unemployed Cognitive needs: No Hearing needs: No Vision needs: No Female Reproductive History Menstrual Age of Menarche: 13 Review of Systems Const Denies fatigue, Denies fever(s), Denies night sweats, Denies poor appetite and Denies weight loss ENT Reports Normal hearing present, Denies dental pain, Denies dysphagia, Denies hearing loss, Denies mouth pain, Denies odynophagia, Denies throat swelling, Denies tongue swelling and Reports other (Dentition adequate) Card Reports no additional complaints Resp Reports no additional complaints GI Details: Reports abdominal pain, Denies melena, Denies bloating, Denies hematochezia, Reports constipation, Denies GI cramping, Denies dysphagia, Denies excessive flatus, Denies early satiety, Denies heartburn, Denies diarrhea, Denies nausea, Denies odynophagia, Denies vomiting and Denies hematemesis Skin/Breast Denies pruritus, Denies lesions, Denies rash and Denies jaundice Neuro Reports Normal hearing present and Denies Abnormal speech present Endo Denies fatigue Aller/Immun Denies throat swelling and Denies tongue swelling Physical Exam Vital Signs: Last Vital Signs Pulse 64 02/09/24 12:41 BP 135/81 02/09/24 12:41 BMI result Body Mass Index 32.4 Const General: cooperative, no acute distress, well developed and well groomed Nutritional Appearance: well nourished and obese Orientation/consciousness: oriented to person, oriented to place and oriented to time Limitations: language barrier HEENT Head: Yes normocephalic and Yes atraumatic Eyes General: appearance normal, both eyes and all related structures Pupils: Equal, round and reactive pupils present Neck Neck: Yes normal visual inspection and Yes no lymphadenopathy Thyroid: Thyroid normal Resp Effort & Inspection: normal respiratory effort and able to speak in complete sentences Auscultation: clear to auscultation bilaterally Cardio Rate: regular rate Rhythm: regular rhythm Heart sounds: Normal, physiologic split S2 sound present Peripheral pulses: radial pulses present and posterior tibial pulses present GI Inspection: No distended, Yes Abdominal panniculus present and Yes obesity Palpation (GI): Soft to palpation, nontender, no guarding, not rigid and No hepatosplenomegaly present Percussion: Yes normal to percussion Auscultation: normal bowel sounds Rectal Exam - Female: deferred Skin General skin exam: no rashes or lesions noted, turgor normal, skin not dry, no jaundice, No spider nevi and no striae Rashes: no rashes Nails: normal Neuro General: oriented to person, oriented to place and oriented to time Cranial nerves: Yes Equal, round and reactive pupils present and Yes Normal hearing present Speech: No Abnormal speech present Extrem General: Yes normal to inspection, No clubbing, No cyanosis and No edema Psych Appearance: grossly normal and well kempt Mental Status: mental status grossly normal Speech and movement: Normal speech and movement present Affect: normal affect Attitude: cooperative Thought process: Normal thought process present and not confabulating Thought content: Normal thought content present Insight: Limited insight present (Psych) Judgement: Limited judgement present (Psych) Assessment & Plan Assessment & Plan (1) Pre-op examination: Code(s): Z01.818 - Encounter for other preprocedural examination Category: Medical (2) Abnormal colonoscopy: Comment: family history colon polyps, poor prep colonoscopy 2020, repeat in 6 months recommended Code(s): R93.3 - Abnormal findings on diagnostic imaging of other parts of digestive tract Category: Medical (3) Family history of colonic polyps: Comment: Mother and brothers Code(s): Z83.71 - Family history of colonic polyps Category: Medical (4) Erosive gastritis: Code(s): K29.60 - Other gastritis without bleeding Category: Medical (5) Excessive coffee consumption: Code(s): Z91.89 - Other specified personal risk factors, not elsewhere classified Category: Medical (6) Chronic idiopathic constipation: Code(s): K59.04 - Chronic idiopathic constipation Category: Medical (7) Hyperglycemia: Code(s): R73.9 - Hyperglycemia, unspecified Category: Medical (8) Upper abdominal pain: Code(s): R10.10 - Upper abdominal pain, unspecified Category: Medical Plan [facility] The patient was seen in the past by Taylor Her but this is my 1st contact with the patient. She had a prior EGD/colonoscopy with Dr. Rubio, she is saying she needs an EGD because of my liver. This is NOT a truth, but with further discussion she says I have abdominal pain. She also had a repeat in [address] Singh with poor prep (she ate the day before) and erosive gastritis. She says her pain is crampy and will occur either in the LUQ or RUQ. It will double her over when it happens, it happens about 4 times a week. She does not move her bowels every day and only move her bowels q 3 days. They vary from hard to soft depending on her coffee intake. She drinks 8 or more cups of coffee a day. She was unaware of her erosive gastritis, and was never on any PPI therapy. Given her very high coffee consumption and her hx I will start her on omeprazole 40mg. Since the path of her pain seems to follow the path of the colon and she suffers CIC It hink this is the actual cause of her pain. Will trial Linzess 72mcg. She was unaware of the results of her last blood work ordered by her PCP, and she asks me to review this. I do and advise her that she may be developing diabetes, as she claims she WAS fasting before the tests. I will get an A1C to help - this could be important to her liver health. She was very concerned about her fatty liver, being monitored by her PCP. She was educated about PARHAM and that slow steady wt loss, avoidance of ETOH, and sugar control. Her transamiases are not elevated, so this was likely an imaging finding. She asks about GOUT as she has more knee pain when she drinks milk. I print her a gout diet list in [place] from [facility] for her. She denies any cardiac problems but she says she has Asthma and has a pump. NO ID problems Orders: Orders Comprehensive Met. Panel Today R10.10 - Upper abdominal pain, unspecified, R73.9 - Hyperglycemia, unspecified EGD/[facility] - GI Use Only Today K29.60 - Other gastritis without bleeding, Z83.71 - Family history of colonic polyps Hemoglobin A1c Today R10.10 - Upper abdominal pain, unspecified, R73.9 - Hyperglycemia, unspecified Medications: New omeprazole 40 mg PO DAILY 30 days 30 caps 6RF K29.60 - Other gastritis without bleeding, Z91.89 - Other specified personal risk factors, not elsewhere classified linaclotide (Linzess) 72 mcg PO QAM 30 caps 6RF K59.04 - Chronic idiopathic constipation bisacodyl (Dulcolax (bisacodyl)) 10 mg (2 x 5 mg) PO BEDTIME 2 days 4 tabs 0RF sodium,potassium,mag sulfates 17.5-3.13-1.6 gram (Suprep Bowel Prep Kit) 480 mL orally; FOR COLONOSCOPY PREP 354 mL 0RF Coding Level of Care Code New Pt Level 3 (19170) Diagnoses Pre-op examination Z01.818 Abnormal colonoscopy R93.3 Family history of colonic polyps Z83.71 Erosive gastritis K29.60 Excessive coffee consumption Z91.89 Chronic idiopathic constipation K59.04 Hyperglycemia R73.9 Upper abdominal pain R10.10
[2024-02-09 12:41] VITALS: BP 135/81; PULSE 64; BMI 32.4
== END 2024-02-09 16:24 | disposition home or self-care (01) ==
PROVIDERS: PCP Internal Medicine; Visit Provider Nurse Practitioner
DX: K59.04 Chronic idiopathic constipation (principal); K29.60 Other gastritis without bleeding; Z12.11 Encounter for screening for malignant neoplasm of colon; Z83.719 Family history of colon polyps, unspecified; R73.9 Hyperglycemia, unspecified; R10.10 Upper abdominal pain, unspecified
CPT/HCPCS: 99203

== ENCOUNTER → 2024-02-09 12:34 | Outpatient (BNVA) | payer OTHER, SELFPAY | PROVIDERS: PCP Internal Medicine; Visit Provider Nurse Practitioner | DX: Z01.818 Encounter for other preprocedural examination (principal); K29.60 Other gastritis without bleeding; K59.04 Chronic idiopathic constipation; R93.3 Abnormal findings on diagnostic imaging of other parts of digestive tract; R73.9 Hyperglycemia, unspecified; R10.10 Upper abdominal pain, unspecified; Z83.719 Family history of colon polyps, unspecified; Z91.89 Other specified personal risk factors, not elsewhere classified | CPT/HCPCS: 99202 ==

== ENCOUNTER 2024-03-26 09:02 | Outpatient (REF) | payer OTHER, SELFPAY ==
[2024-03-26 10:20] LABS: Estimated Average Glucose 114 mg/dL; Hemoglobin A1C 130.2518 umol/L; Hemoglobin A1c % 5.6 % (<6.0); Total Hemoglobin (HGBA1C) 3478.2729 umol/L
[2024-03-26 10:56] LABS: Alanine Aminotransferase 15 U/L (0-31); Albumin Level 3.9 g/dL (3.5-5.0); Alkaline Phosphatase 91 U/L (39-117); Anion Gap 11 (12-20); Aspartate Amino Transferase 22 U/L (5-31); Bilirubin Total 0.5 mg/dL (0.0-1.0); Blood Urea Nitrogen 11 mg/dL (9-16); Calcium 9.8 mg/dL (8.4-10.2); Carbon Dioxide 27 mmol/L (22-29); Chloride 107 mmol/L (96-108); Estimated Glomerular Filt Rate > 60; Glucose Random 106 mg/dL (60-115); Potassium 4.4 mmol/L (3.3-5.1); Sodium 141 mmol/L (135-145); Total Protein 8.6 g/dL (6.5-8.0)
== END 2024-03-26 09:03 | disposition home or self-care (01) ==
LOC: HO.LAB 09:02
PROVIDERS: PCP Internal Medicine; Visit Provider Nurse Practitioner
DX: R10.10 Upper abdominal pain, unspecified (principal); R73.9 Hyperglycemia, unspecified
CPT/HCPCS: 36415; 80053; 83036

== ENCOUNTER 2024-04-18 13:13 | Outpatient (AMB) | payer OTHER, SELFPAY ==
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
[2024-04-18 13:21] VITALS: BP 110/66; PULSE 68; O2SAT 98
== END 2024-04-18 14:05 | disposition home or self-care (01) ==
PROVIDERS: PCP Internal Medicine; Visit Provider Physician Assistant
DX: S06.0X0A Concussion without loss of consciousness, initial encounter (principal); V89.2XXA Person injured in unspecified motor-vehicle accident, traffic, initial encounter

== ENCOUNTER 2024-04-20 18:34 | Emergency (ER) | payer OTHER, SELFPAY ==
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
[2024-04-20 18:39] VITALS: BP 140/68; PULSE 65; RESP 18; TEMP 36.3; O2SAT 98; BMI 27.8
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
[2024-04-20 20:43] VITALS: BP 140/68; PULSE 65; RESP 18; TEMP 36.3; O2SAT 98
== END 2024-04-20 20:44 | disposition home or self-care (01) ==
PROVIDERS: Emergency Provider Emergency Medicine; PCP Internal Medicine
DX: S06.0X0A Concussion without loss of consciousness, initial encounter (principal); V43.52XA Car driver injured in collision with other type car in traffic accident, initial encounter; Y93.89 Activity, other specified; Y92.410 Unspecified street and highway as the place of occurrence of the external cause; Y99.9 Unspecified external cause status
CPT/HCPCS: 70450; 72125; 99282; 99284

== ENCOUNTER → 2024-04-20 18:43 | Outpatient (BNV) | payer OTHER, SELFPAY | PROVIDERS: Emergency Provider Emergency Medicine; PCP Internal Medicine; Visit Provider Radiology Diagnostic Radiology | DX: R51.9 Headache, unspecified (principal); R42 Dizziness and giddiness; J01.20 Acute ethmoidal sinusitis, unspecified; J01.00 Acute maxillary sinusitis, unspecified | CPT/HCPCS: 70450; 72125 ==

== ENCOUNTER 2024-06-20 | Outpatient (REF) | payer OTHER, SELFPAY ==
--- NOTE | ~2024-06-20 | XR_ITS ---
EXAMINATION: XR LUMBOSACRAL SPINE CLINICAL INFORMATION: M54.9 - Dorsalgia, unspecified COMPARISON: 09/27/2020. TECHNIQUE: Three views of the lumbosacral spine. FINDINGS: There is normal bone mineralization. There is no scoliosis. There is normal lordosis. There is normal sagittal alignment without subluxation. There are no compression deformities, fractures, or suspicious bone lesions. There is mild disc degeneration L5-S1. The remainder of the intervertebral discs appear normal. Facets are normally aligned. There are mild degenerative facet changes spanning L4-S1. There are no soft tissue abnormalities. XR/XR lumbar spine 2-3V IMPRESSION: 1. Mild degenerative spondylosis of the lower lumbar spine. No acute bony abnormalities. Electronically signed by: Demetrius Quick MD 06/20/2024 03:07 PM EDT
--- NOTE | ~2024-06-20 | XR_ITS ---
EXAMINATION: XR SACROILIAC JOINTS CLINICAL INFORMATION: M54.9 - Dorsalgia, unspecified COMPARISON: None available. 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 There are no definite erosions or significant spurs. No clear evidence of inflammatory arthropathy. The sacrum appears intact. There are no bone lesions. Hip joints appear normal. XR/XR sacroiliac joint 1-2V IMPRESSION: 1. Findings suggesting osteitis condensans ilii. No definite inflammatory sacroiliitis. Electronically signed by: Demetrius Quick MD 06/20/2024 03:05 PM EDT
--- NOTE | ~2024-06-20 | XR_ITS ---
EXAMINATION: XR SACRUM AND COCCYX CLINICAL INFORMATION: M54.9 - Dorsalgia, unspecified COMPARISON: None available. TECHNIQUE: 2 views of the sacrum and lateral view of the sacrum/coccyx were obtained. FINDINGS: There are no fractures. No bone, joint or soft tissue abnormality is demonstrated. The coccyx appears normal. 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 No definite erosions seen. XR/XR sacrum coccyx min 2V IMPRESSION: No acute bony abnormalities. Electronically signed by: Demetrius Quick MD 06/20/2024 03:11 PM EDT
--- NOTE | ~2024-06-20 | XR_ITS ---
EXAMINATION: XR THORACIC SPINE CLINICAL INFORMATION: M54.9 - Dorsalgia, unspecified COMPARISON: None available. TECHNIQUE: 3 views of the thoracic spine were obtained. FINDINGS: There is a very subtle right convex scoliosis. There is a normal kyphosis. There is normal sagittal alignment without subluxation. There are no compression deformities, acute fractures, or suspicious bone lesions. There are mild diffuse degenerative disc changes present. The paravertebral soft tissues appear normal. XR/XR thoracic spine 2V IMPRESSION: Mild degenerative changes of the thoracic spine without acute bony abnormality. Electronically signed by: Demetrius Quick MD 06/20/2024 03:09 PM EDT
== END 2024-06-20 00:01 | disposition home or self-care (01) ==
LOC: HO.XRAY
PROVIDERS: PCP Internal Medicine; Visit Provider Nurse Practitioner
DX: M54.9 Dorsalgia, unspecified (principal); M53.3 Sacrococcygeal disorders, not elsewhere classified
CPT/HCPCS: 72070; 72100; 72200; 72220

== ENCOUNTER 2024-06-20 11:21 | Outpatient (AMB) | payer OTHER, SELFPAY ==
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
[2024-06-20 11:41] VITALS: BP 126/76; PULSE 58; O2SAT 97; BMI 35.1
== END 2024-06-20 12:08 | disposition home or self-care (01) ==
LOC: HO.HGI 11:22
PROVIDERS: PCP Internal Medicine; Visit Provider Nurse Practitioner
DX: R10.10 Upper abdominal pain, unspecified (principal); K59.04 Chronic idiopathic constipation; K29.60 Other gastritis without bleeding; M54.9 Dorsalgia, unspecified; M53.3 Sacrococcygeal disorders, not elsewhere classified
CPT/HCPCS: 99214

== ENCOUNTER → 2024-06-20 11:21 | Outpatient (BNVA) | payer OTHER, SELFPAY | PROVIDERS: PCP Internal Medicine; Visit Provider Nurse Practitioner | DX: K59.04 Chronic idiopathic constipation (principal); K29.60 Other gastritis without bleeding; R10.10 Upper abdominal pain, unspecified; M54.9 Dorsalgia, unspecified; M53.3 Sacrococcygeal disorders, not elsewhere classified | CPT/HCPCS: 99212 ==

== ENCOUNTER → 2024-06-20 12:26 | Outpatient (BNV) | payer OTHER, SELFPAY | PROVIDERS: PCP Internal Medicine; Visit Provider Radiology Diagnostic Radiology | DX: M54.50 Low back pain, unspecified (principal); M54.6 Pain in thoracic spine; M54.9 Dorsalgia, unspecified | CPT/HCPCS: 72070; 72100; 72200; 72220 ==

== ENCOUNTER 2024-11-14 11:01 | Outpatient (REF) | payer OTHER, SELFPAY ==
--- NOTE | ~2024-11-14 | XR_ITS ---
EXAMINATION: XR KNEE AP STANDING CLINICAL INFORMATION: Bilateral knee pain. COMPARISON: 11/28/2018. TECHNIQUE: AP bilateral standing view of the knees was obtained. FINDINGS: RIGHT KNEE: No fracture, dislocation, or suspicious bone lesion. There is normal alignment. There is mild to moderate medial compartment joint space narrowing with minimal osteophytic marginal spurring. There are mild changes in the lateral compartment. There is mild spurring of the tibial spines. There are superolateral patellar spurs noted. There is no soft tissue abnormality. LEFT KNEE: No fracture, dislocation, or suspicious bone lesion. There is normal alignment. There is mild medial compartment joint space narrowing with subtle osteophytic spurring. There are minimal changes in the lateral compartment. There is mild spurring of the tibial spines. There are superolateral patellar spur is noted. There is no soft tissue abnormality. XR/XR knee standing BI IMPRESSION: 1. Bilateral tricompartmental osteoarthrosis, left greater than right knees, most significant in the medial compartments. This appears mildly progressed in both knees when compared with the prior exam. Electronically signed by: Demetrius Quick MD 11/14/2024 11:50 AM EDT
== END 2024-11-14 11:02 | disposition home or self-care (01) ==
LOC: HO.HMGCX 11:01
PROVIDERS: PCP Internal Medicine; Visit Provider Internal Medicine
DX: Z00.00 Encounter for general adult medical examination without abnormal findings (principal); Z53.20 Procedure and treatment not carried out because of patient's decision for unspecified reasons; M25.561 Pain in right knee; M25.562 Pain in left knee; R73.9 Hyperglycemia, unspecified; E55.9 Vitamin D deficiency, unspecified; F41.9 Anxiety disorder, unspecified; R93.3 Abnormal findings on diagnostic imaging of other parts of digestive tract; Z12.4 Encounter for screening for malignant neoplasm of cervix; Z79.1 Long term (current) use of non-steroidal anti-inflammatories (NSAID); Z79.899 Other long term (current) drug therapy
CPT/HCPCS: 73565; 96127; 99396

== ENCOUNTER 2024-11-14 11:01 | Outpatient (AMB) | payer OTHER, SELFPAY ==
[2024-11-14 11:03] VITALS: BP 124/76; PULSE 68; RESP 18; TEMP 36.8; O2SAT 98; BMI 36.4
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
== END 2024-11-14 11:41 | disposition home or self-care (01) ==
LOC: HO.HMCC 11:02
PROVIDERS: PCP Internal Medicine; Visit Provider Internal Medicine
DX: M25.562 Pain in left knee (principal); R73.9 Hyperglycemia, unspecified; E55.9 Vitamin D deficiency, unspecified; F41.9 Anxiety disorder, unspecified; R93.3 Abnormal findings on diagnostic imaging of other parts of digestive tract; Z12.4 Encounter for screening for malignant neoplasm of cervix; Z53.20 Procedure and treatment not carried out because of patient's decision for unspecified reasons; Z00.00 Encounter for general adult medical examination without abnormal findings

== ENCOUNTER → 2024-11-14 11:36 | Outpatient (BNV) | payer OTHER, SELFPAY | PROVIDERS: PCP Internal Medicine; Visit Provider Radiology Diagnostic Radiology | DX: M17.0 Bilateral primary osteoarthritis of knee (principal) | CPT/HCPCS: 73565 ==

== ENCOUNTER 2024-11-19 08:07 | Outpatient (REF) | payer OTHER, SELFPAY ==
[2024-11-19 10:06] LABS: MANUAL DIFF FLAG NO
[2024-11-19 10:27] LABS: Hematocrit 42.7 % (37.0-47.0); Hemoglobin 13.1 g/dl (12.0-16.0); Imm Gran Abs Auto 0.02 X10*3/uL (0.00-0.03); Imm Gran Pct Auto 0.2 % (0.0-0.4); Lymphocytes Absolute Auto 2.3 X10*3/uL (1.2-4.9); Mean Corpuscular HGB Conc 30.7 g/dl (31.0-35.0); Mean Corpuscular Hemoglobin 27.8 pg (27.0-33.0); Mean Corpuscular Volume 90.5 fL (80.0-98.0); NRBC Abs Auto 0.000 X10*3/uL (0.0-0.012); NRBC Pct Auto 0.0 /100WBC (0.0-0.2); Platelet Count 290 X10*3/uL (160-400); Red Blood Count 4.72 X10*6/uL (4.20-5.50); White Blood Count 8.3 X10*3/uL (4.8-10.8)
[2024-11-19 10:37] LABS: Appearance Urine Clear; Glucose Urine UA Negative (Negative); PH 5.5 (5.0-9.0); Specific Gravity - Urine 1.025 (1.005-1.025); UMIC TRIGGER UA YES
[2024-11-19 11:04] LABS: Alanine Aminotransferase 19 U/L (0-31); Albumin Level 3.8 g/dL (3.5-5.0); Alkaline Phosphatase 90 U/L (39-117); Anion Gap 10 (12-20); Aspartate Amino Transferase 24 U/L (5-31); Blood Urea Nitrogen 14 mg/dL (9-16); Calcium 9.2 mg/dL (8.4-10.2); Carbon Dioxide 26 mmol/L (22-29); Chloride 109 mmol/L (96-108); Cholesterol 208 mg/dL (<200); Estimated Glomerular Filt Rate > 60; HDL Cholesterol 46 mg/dL (>40); Potassium 4.3 mmol/L (3.3-5.1); Sodium 141 mmol/L (135-145); Total Protein 7.6 g/dL (6.5-8.0); Triglycerides 76 mg/dL (<150)
== END 2024-11-19 08:08 | disposition home or self-care (01) ==
LOC: HO.HMGCLDS 08:07
PROVIDERS: PCP Internal Medicine; Visit Provider Internal Medicine
DX: R73.9 Hyperglycemia, unspecified (principal); E55.9 Vitamin D deficiency, unspecified; Z91.89 Other specified personal risk factors, not elsewhere classified
CPT/HCPCS: 36415; 80053; 80061; 81001; 82306; 83036; 85025